=== PATIENT | male | born 1935 | race Caucasian/White ===

== ENCOUNTER 2024-10-08 14:26 | Inpatient (IN) | payer MEDICARE, OTHER ==
[2024-10-08 15:17] LABS: Absolute Neutrophil Ct (ANC) 4.14 x10^3/uL (1.78-5.38); BASOPHIL % 0.6 % (0.2-1.2); Basophil (Absolute #) 0.04 x10^3/uL (0.01-0.08); Eosinophil % 4.3 % (0.8-7.0); Eosinophil (Absolute #) 0.28 x10^3/uL (0.04-0.54); Hematocrit 38.6 % (40.1-51.0); Hemoglobin 12.7 g/dL (13.7-17.5); IMMATURE GRAN # 0.02 x10^3u/L (0.001-0.031); IMMATURE GRAN % 0.3 % (0.001-0.429); Lymphocyte (Absolute #) 1.43 x10^3/uL (1.32-3.57); Lymphocytes % 21.8 % (21.8-53.1); Mean Cell Volume 91.3 fL (79.0-92.2); Mean Corpuscular Hgb Concent. 32.9 g/dL (32.3-36.5); Monocyte (Absolute #) 0.64 x10^3/uL (0.30-0.82); Monocytes % 9.8 % (5.3-12.2); Neutrophil % 63.2 % (34.0-67.9); Platelet Count 168 x10^3/uL (163-337); Red Blood Count 4.23 x10^6/uL (4.63-6.08); Red Cell Distribution Width 14.3 % (11.6-14.4); White Blood Count 6.6 x10^3/uL (4.23-9.07)
[2024-10-08 15:36] LABS: ALBUMIN 3.6 g/dL (3.5-5.0); ANION GAP 11.5 MEQ/L (5-15); BILIRUBIN,TOTAL 0.4 mg/dL (0.2-1.3); Creatinine 1 0.9 mg/dL (0.66-1.25); EST GLOMERULAR FILTRATION RATE 82.2 ML/MIN; Potassium 4.6 mmol/L (3.5-5.1); Total Protein 6.1 g/dL (6.3-8.2)
[2024-10-08 16:13] LABS: Appearance Cloudy (Clear); Bacteria None Seen /HPF (None Seen); Bilirubin Negative (Negative); Blood Negative (Negative); Epithelial Cells None Seen /HPF (None Seen); Glucose, Urine Negative (Negative); Hyaline Casts NONE SEEN /LPF (0-2); Ketones Negative (Negative); Leukocyte Esterase Small (Negative); Nitrite Negative (Negative); Protein,Urine Dip Negative (Negative); RBC 0-2 /HPF (0-5); Specific Gravity 1.015 (1.005-1.030); Urobilinogen 0.2 mg/dL (0.2)
--- NOTE | 2024-10-08 16:25 | ERPHSYRPT ---
- History of Present Illness Time Seen by Provider: 10/08/24 14:32 Historian: patient Exam Limitations: no limitations Patient Subjective Stated Complaint: C/O upper abdominal pain for 12-15 hours Triage Nursing Assessment: Patient ambulated back to ER with his walker. He is alert and oriented. Hard of hearing but hears adequately with his hearing aids. No SOB. Abdomen is soft, non-tender to palpation. Physician History: 88 years old male presented in the ER with complains of abdominal pain with some questionable constipation. Patient reports he is having off-and-on abdominal pain for almost 1 week but for the last 2 days getting worse especially since morning. All over, also reports having loose stool but no regular bowel movement in 1 week. Pain is mild to moderate dull aching to sharp with no significant aggravating or relieving factors. Reports mild nausea but no vomiting. No fever or chills reported. No history of abdominal surgeries, intestinal obstructions. No urinary complaints. No fever or chills reported. Allergies/Adverse Reactions: No Known Drug Allergies Allergy (Verified 10/08/24 14:33) Home Medications: Aspirin [Aspirin EC] 81 mg PO DAILY 08/10/14 [History] Metoprolol Succinate 50 mg [Toprol Xl 50 MG] 50 mg PO DAILY 10/08/24 [History] Tamsulosin HCl [Flomax] 0.4 mg PO DAILY 10/08/24 [History] Hx Tetanus, Diphtheria Vaccination/Date Given: Yes Hx Influenza Vaccination/Date Given: Yes Hx Pneumococcal Vaccination/Date Given: Yes Immunizations Up to Date: Yes Travel Risk - International Travel Have you traveled outside of the country in past 3 weeks: No - Emerging Infectious Disease Are you exhibiting symptoms associated with any current EIDs: Yes Symptoms: Abdominal Pain - Review of Systems Constitutional: No Symptoms Eyes: No Symptoms Ears, Nose, & Throat: No Symptoms Respiratory: No Symptoms Cardiac: No Symptoms Abdominal/Gastrointestinal: Abdominal Pain, Nausea, Diarrhea, Constipation Genitourinary Symptoms: No Symptoms Skin: No Symptoms Neurological: No Symptoms Endocrine: No Symptoms Hematologic/Lymphatic: No Symptoms - Past Medical History Pertinent Past Medical History: Yes Neurological History: No Pertinent History ENT History: No Pertinent History Cardiac History: High Cholesterol, Hypertension Respiratory History: No Pertinent History Endocrine Medical History: Hypothyroidism Musculoskeletal History: No Pertinent History GI Medical History: No Pertinent History History: No Pertinent History Psycho-Social History: No Pertinent History Male Reproductive Disorders: No Pertinent History - Past Surgical History Past Surgical History: Yes Neuro Surgical History: No Pertinent History Cardiac: No Pertinent History Respiratory: No Pertinent History Gastrointestinal: No Pertinent History Genitourinary: No Pertinent History Musculoskeletal: No Pertinent History Male Surgical History: No Pertinent History Other Surgical History: colonoscopy ,EGD - Social History Smoking Status: Never smoker Exposure to second hand smoke: No Drug Use: none - Social Determinants of Health Will the patient participate in the screening: Yes Do you worry about a steady place to live?: No Do you have any problems with any of the following?: No known problems In the past 12 months,have you had to go without utilities?: No Transportation Issues: No Has anyone in your support network made you feel unsafe?: No Have you or anyone in your house had to go w/o enough food: No - Nursing Vital Signs Nursing Vital Signs: Initial Vital Signs Temperature 97.6 F 10/08/24 14:35 Pulse Rate 55 L 10/08/24 14:35 Respiratory Rate 16 10/08/24 14:35 Blood Pressure 165/64 10/08/24 14:35 O2 Sat by Pulse Oximetry 97 10/08/24 14:35 Pain Scale Pain Intensity 3 - Physical Exam General Appearance: no apparent distress, alert Ears, Nose, Throat Exam: normal ENT inspection, pharynx normal Neck Exam: normal inspection, non-tender, supple, full range of motion Respiratory Exam: normal breath sounds, lungs clear Cardiovascular Exam: normal heart sounds, bradycardia Gastrointestinal/Abdomen Exam: soft, tenderness (Mild generalized tenderness with no guarding or rebound), No normal bowel sounds Back Exam: normal inspection Extremity Exam: normal inspection, normal range of motion Neurologic Exam: alert, oriented x 3, cooperative Skin Exam: normal color SpO2 Interpretation: normal SpO2: 98 O2 Delivery: Room Air Ordered Tests: Active Orders 24 hr Category Date Time Status Call Admit Doctor for Orders ON ADMISSION Care 10/08/24 22:32 Active Code Status Order ROUTINE Care 10/08/24 22:32 Active NPO (ED) STAT Care 10/08/24 16:[address] in Observation ROUTINE Care 10/08/24 22:32 Active Telemetry q6h Care 10/08/24 22:32 Active ABDOMEN AND PELVIS W/0 CONTRAS [CT] Stat Exams 10/08/24 14:55 Completed CBC W DIFF Stat Lab 10/08/24 14:13 Completed CMP Stat Lab 10/08/24 14:13 Completed LIPASE Stat Lab 10/08/24 14:13 Completed Lactic Acid Stat Lab 10/08/24 17:08 Completed UA W/RFX UR CULTURE Stat Lab 10/08/24 16:00 Completed Transfer Order Routine Transfer 10/08/24 Completed Medication Summary Generic Name Dose Route Start Last Admin Trade Name Shankar PRN Reason Stop Dose Admin Hydrocodone Bitart/Acetaminophen 1 tab 10/08/24 23:05 Hydrocodone/Apap 5/325 1 Tab Tablet PO 10/13/24 23:04 Q4H PRN PRN PAIN Enoxaparin Sodium 40 mg 10/09/24 10:00 Enoxaparin Sodium 40 Mg/0.4 Ml Syringe SQ 11/08/24 09:59 DAILY MARLY Sodium Chloride 1,000 mls @ 125 mls/hr 10/08/24 22:45 10/08/24 23:15 Sodium Chloride 0.9% 1000 Ml IV 11/07/24 22:44 125 mls/hr .Q8H MARLY Administration Piperacillin Sod/Tazobactam 100 mls @ 200 mls/hr 10/09/24 00:00 Sod 3.375 gm/ Sodium Chloride IV 10/12/24 00:00 Q6HT MARLY Morphine Sulfate 2 mg 10/08/24 23:03 Morphine Sulfate 2 Mg/Ml Inj IV 10/13/24 23:02 Q1H/PRN PRN SEVERE PAIN Morphine Sulfate 4 mg 10/08/24 23:03 Morphine Sulfate 4 Mg/Ml Injection IV 10/13/24 23:02 Q2H PRN PRN SEVERE PAIN Ondansetron HCl 4 mg 10/08/24 23:06 Ondansetron Hcl 4 Mg/2 Ml Vial IV 11/07/24 23:05 Q6H PRN PRN NAUSEA/VOMITING Pantoprazole Sodium 40 mg 10/08/24 23:15 10/08/24 23:19 Pantoprazole 40 Mg Vial IV 11/07/24 23:14 40 mg Q24H MARLY Administration Discontinued Medications Generic Name Dose Route Start Last Admin Trade Name Shankar PRN Reason Stop Dose Admin Atropine Sulfate Confirm 10/08/24 20:11 Atropine Sulfate 1 Mg/1 Ml Vial Administered 10/08/24 20:12 Dose 1 mg .ROUTE .STK-MED ONE Bupivacaine HCl Confirm 10/08/24 17:48 Bupivacaine Hcl 2.5 Mg/Ml 10 Ml Administered 10/08/24 17:49 Dose 20 ml .ROUTE .STK-MED ONE Bupivacaine HCl Confirm 10/08/24 20:16 Bupivacaine Hcl/Pf 150 Mg/30 Ml Vial Administered 10/08/24 20:17 Dose 150 mg .ROUTE .STK-MED ONE Bupivacaine Liposome Confirm 10/08/24 20:16 Bupivacaine Liposome/Pf 133 Mg/10 Ml Administered 10/08/24 20:17 Dose 266 mg IJ .STK-MED ONE Dexmedetomidine/Sodium Chloride Confirm 10/08/24 21:04 Dexmedetomidine In 0.9 % Nacl 80 Mcg/20 Ml Vial Administered 10/08/24 21:05 Dose 80 mcg IV .STK-MED ONE Ephedrine Sulfate Confirm 10/08/24 18:48 Ephedrine Sulfate 50 Mg/Ml Administered 10/08/24 18:49 Dose 50 mg .ROUTE .STK-MED ONE Etomidate Confirm 10/08/24 18:07 Etomidate 20 Mg/10 Ml Amp Administered 10/08/24 18:08 Dose 20 mg IV .STK-MED ONE Fentanyl Citrate Confirm 10/08/24 18:07 Fentanyl Citrate 100 Mcg/2 Ml* Vial Administered 10/08/24 18:08 Dose 100 mcg .ROUTE .STK-MED ONE Fentanyl Citrate Confirm 10/08/24 19:11 Fentanyl Citrate 100 Mcg/2 Ml* Vial Administered 10/08/24 19:12 Dose 100 mcg .ROUTE .STK-MED ONE Sodium Chloride 1,000 mls @ 999 mls/hr 10/08/24 16:37 10/08/24 17:50 Sodium Chloride 0.9% 1000 Ml IV 10/08/24 17:37 Infused .Q1H1M STA Infusion Sodium Chloride Confirm 10/08/24 16:41 Sodium Chloride 0.9% 1000 Ml Administered 10/08/24 16:42 Dose 1,000 mls @ ud .ROUTE .STK-MED ONE Piperacillin Sod/Tazobactam 100 mls @ 200 mls/hr 10/08/24 17:46 10/08/24 17:53 Sod 3.375 gm/ Sodium Chloride IV 10/08/24 18:15 200 ml/hr STAT ONE 200 mls/hr Administration Lactated Ringer's Confirm 10/08/24 17:48 Lactated Ringers Administered 10/08/24 17:49 Dose 1,000 mls @ ud IV .STK-MED ONE Sodium Chloride Confirm 10/08/24 17:50 Sodium Chloride 100ml Mini-Bag Plus Administered 10/08/24 17:51 Dose 100 mls @ ud IV .STK-MED ONE Norepinephrine/Dextrose Confirm 10/08/24 17:56 Norepinephrine 8 Mg/250 Ml-D5w Administered 10/08/24 17:57 Dose 8 mg in 250 mls @ ud IV .STK-MED ONE Lactated Ringer's Confirm 10/08/24 19:14 Lactated Ringers Administered 10/08/24 19:15 Dose 1,000 mls @ ud IV .STK-MED ONE Lidocaine HCl Confirm 10/08/24 18:07 Lidocaine - Mpf 2% 5 Ml Vial Administered 10/08/24 18:08 Dose 5 ml .ROUTE .STK-MED ONE Morphine Sulfate 4 mg 10/08/24 17:15 10/08/24 17:24 Morphine Sulfate 4 Mg/Ml Injection IV 10/08/24 17:16 Not Given STAT ONE Morphine Sulfate Confirm 10/08/24 17:22 Morphine Sulfate 4 Mg/Ml Injection Administered 10/08/24 17:23 Dose 4 mg .ROUTE .STK-MED ONE Ondansetron HCl 4 mg 10/08/24 17:15 10/08/24 17:25 Ondansetron Hcl 4 Mg/2 Ml Vial IV 10/08/24 17:16 Not Given STAT ONE Ondansetron HCl Confirm 10/08/24 17:21 Ondansetron Hcl 4 Mg/2 Ml Vial Administered 10/08/24 17:22 Dose 4 mg .ROUTE .STK-MED ONE Ondansetron HCl Confirm 10/08/24 20:22 Ondansetron Hcl 4 Mg/2 Ml Vial Administered 10/08/24 20:23 Dose 4 mg .ROUTE .STK-MED ONE Piperacillin Sod/Tazobactam Sod Confirm 10/08/24 17:49 Piperacillin/Tazobactam Sodium 3.375 Gm Vial Administered 10/08/24 17:50 Dose 3.375 gm IV .STK-MED ONE Propofol Confirm 10/08/24 18:06 Propofol 200 Mg/20 Ml Vial Administered 10/08/24 18:07 Dose 200 mg IV .STK-MED ONE Rocuronium [facility] Confirm 10/08/24 18:05 Rocuronium [facility] 50 Mg/5 Ml Vial Administered 10/08/24 18:06 Dose 50 mg IV .STK-MED ONE Succinylcholine Chloride Confirm 10/08/24 18:05 Succinylcholine Chloride 200mg/10 Ml Vial Administered 10/08/24 18:06 Dose 100 mg .ROUTE .STK-MED ONE Sugammadex Sodium Confirm 10/08/24 20:05 Sugammadex Sodium 200 Mg/2 Ml Vial Administered 10/08/24 20:06 Dose 200 mg IV .STK-MED ONE Lab/Rad Data: Laboratory Result Diagrams 10/08/24 14:13 10/08/24 14:13 Laboratory Results 10/08/24 10/08/24 10/08/24 Range/Units 17:08 16:00 14:13 WBC (4.23-9.07) x10^3/uL RBC (4.63-6.08) x10^6/uL Hgb (13.7-17.5) g/dL Hct (40.1-51.0) % MCV (79.0-92.2) fL MCH (25.7-32.2) pg MCHC (32.3-36.5) g/dL RDW (11.6-14.4) % Plt Count (163-337) x10^3/uL MPV (9.4-12.4) fL Gran % (34.0-67.9) % Immature Gran % (Auto) (0.001-0.429) % Nucleat RBC Rel Count (0.00-0.2) % Eos # (Auto) (0.04-0.54) x10^3/uL Immature Gran # (Auto) (0.001-0.031) x10^3u/L Absolute Lymphs (auto) (1.32-3.57) x10^3/uL Absolute Monos (auto) (0.30-0.82) x10^3/uL Absolute Nucleated RBC (0.00-0.012) x10^3u/L Lymphocytes % (21.8-53.1) % Monocytes % (5.3-12.2) % Eosinophils % (0.8-7.0) % Basophils % (0.2-1.2) % Absolute Granulocytes (1.78-5.38) x10^3/uL Basophils # (0.01-0.08) x10^3/uL Sodium 139 (135-145) mmol/L Potassium 4.6 (3.5-5.1) mmol/L Chloride 105 (98-107) mmol/L Carbon Dioxide 27 (22-30) mmol/L Anion Gap 11.5 (5-15) MEQ/L BUN 28 H (9-20) mg/dL Creatinine 0.90 (0.66-1.25) mg/dL Estimated GFR 82.2 ML/MIN Glucose 149 H (74-106) mg/dL Lactic Acid 1.0 (0.4-2.0) Calcium 9.0 (8.4-10.2) mg/dL Total Bilirubin 0.40 (0.2-1.3) mg/dL AST 22 (17-59) U/L ALT 12 (0-50) U/L Alkaline Phosphatase 83 (38-126) U/L Serum Total Protein 6.1 L (6.3-8.2) g/dL Albumin 3.6 (3.5-5.0) g/dL Lipase 24 (23-300) U/L Urine Color Yellow (Yellow) Urine Appearance Cloudy A (Clear) Urine pH 8.0 (4.6-8.0) Ur Specific [place] 1.015 (1.005-1.030) Urine Protein Negative (Negative) Urine Glucose (UA) Negative (Negative) mg/dL Urine Ketones Negative (Negative) Urine Blood Negative (Negative) Urine Nitrite Negative (Negative) Urine Bilirubin Negative (Negative) Urine Urobilinogen 0.2 (0.2) mg/dL Ur Leukocyte Esterase Small A (Negative) U Hyaline Cast (Auto) NONE SEEN (0-2) /LPF Urine Microscopic RBC 0-2 (0-5) /HPF Urine Microscopic WBC 3-5 (0-5) /HPF Ur Epithelial Cells None Seen (None Seen) /HPF Urine Bacteria None Seen (None Seen) /HPF Urine Culture Reflexed NO (NO) 10/08/24 Range/Units 14:13 WBC 6.6 (4.23-9.07) x10^3/uL RBC 4.23 L (4.63-6.08) x10^6/uL Hgb 12.7 L (13.7-17.5) g/dL Hct 38.6 L (40.1-51.0) % MCV 91.3 (79.0-92.2) fL MCH 30.0 (25.7-32.2) pg MCHC 32.9 (32.3-36.5) g/dL RDW 14.3 (11.6-14.4) % Plt Count 168 (163-337) x10^3/uL MPV 10.0 (9.4-12.4) fL Gran % 63.2 (34.0-67.9) % Immature Gran % (Auto) 0.3 (0.001-0.429) % Nucleat RBC Rel Count 0.0 (0.00-0.2) % Eos # (Auto) 0.28 (0.04-0.54) x10^3/uL Immature Gran # (Auto) 0.02 (0.001-0.031) x10^3u/L Absolute Lymphs (auto) 1.43 (1.32-3.57) x10^3/uL Absolute Monos (auto) 0.64 (0.30-0.82) x10^3/uL Absolute Nucleated RBC 0.00 (0.00-0.012) x10^3u/L Lymphocytes % 21.8 (21.8-53.1) % Monocytes % 9.8 (5.3-12.2) % Eosinophils % 4.3 (0.8-7.0) % Basophils % 0.6 (0.2-1.2) % Absolute Granulocytes 4.14 (1.78-5.38) x10^3/uL Basophils # 0.04 (0.01-0.08) x10^3/uL Sodium (135-145) mmol/L Potassium (3.5-5.1) mmol/L Chloride (98-107) mmol/L Carbon Dioxide (22-30) mmol/L Anion Gap (5-15) MEQ/L BUN (9-20) mg/dL Creatinine (0.66-1.25) mg/dL Estimated GFR ML/MIN Glucose (74-106) mg/dL Lactic Acid (0.4-2.0) Calcium (8.4-10.2) mg/dL Total Bilirubin (0.2-1.3) mg/dL AST (17-59) U/L ALT (0-50) U/L Alkaline Phosphatase (38-126) U/L Serum Total Protein (6.3-8.2) g/dL Albumin (3.5-5.0) g/dL Lipase (23-300) U/L Urine Color (Yellow) Urine Appearance (Clear) Urine pH (4.6-8.0) Ur Specific [place] (1.005-1.030) Urine Protein (Negative) Urine Glucose (UA) (Negative) mg/dL Urine Ketones (Negative) Urine Blood (Negative) Urine Nitrite (Negative) Urine Bilirubin (Negative) Urine Urobilinogen (0.2) mg/dL Ur Leukocyte Esterase (Negative) U Hyaline Cast (Auto) (0-2) /LPF Urine Microscopic RBC (0-5) /HPF Urine Microscopic WBC (0-5) /HPF Ur Epithelial Cells (None Seen) /HPF Urine Bacteria (None Seen) /HPF Urine Culture Reflexed (NO) - Progress Progress: improved, pain not gone completely, re-examined Progress Note: 10/08/24 16:45 88 years old is evaluated in the ER for abdominal pain with nausea and diarrhea with worsening for the last 12 hours. Patient abdominal exam is soft with mild generalized tenderness, no guarding or rebound tenderness. He is offered pain medication which she initially declined but on reevaluation wants something for pain. He is given fluids. Workup showed normal white count, chemistries fairly unremarkable. CT abdomen pelvis consistent with viscus rupture with tiny foci of free air under diaphragm and dilated loops of small bowel with pneumatosis intestinalis, suggesting vascular etiology but patient abdominal exam is not consistent with that. I have shared the results of workup with patient and family and need for surgical consult with possible emergent surgical intervention which patient and seem understanding. Discussed with Dr. Greco, reviewed history, workup, he is going to review CT imaging, and will call us back. 10/08/24 17:16 Dr. Greco is planning to take patient to the OR. Patient will be admitted to the hospitalist service in consultation with general surgery 10/08/24 17:[address] Oliva, reviewed history, workup, general surgery recommendations and agreed with admission. Complexity of problems addressed: High acuity Complexity of data reviewed/analyzed:Extensive Risk of complication: High risk Discussed with Dr.: Andrews Will see patient in: hospital (full admit) Counseled pt/family regarding: lab results, diagnosis, need for follow-up, rad results Medical Desision Making - Discussion of managment Care discussed with:: specialist (Dr. Greco and Dr. Oliva) Reviewed:: Test results Agreed on:: Treatment plan, decision to admit Will see patient: in hospital - Diagnostic Testing Diagnostic test were ordered, analyzed, and reviewed by me: Yes Radiological Interpretation: Reviewed by me, Teleradiologist Report - Risk of complications The pt has a mod risk of morbidity or mortality based on: Need for prescription drug management The pt has a high risk of morbidity or mortality based on: Need for major surgery in patient with known risk factors, Need for emergency major surgery, Decision regarding hospitilization or escalation of hosp level of care - Departure Departure Disposition: In-patient Admission Clinical Impression: Intestinal perforation Condition: Stable Critical Care Time: Yes Critical Care Time(excluding separately billable procedures): Critical 30-74 mins
--- NOTE | 2024-10-08 16:38 | XRAY ---
CLINICAL HISTORY: Generalized abdominal pain/diarrhea COMPARISON: No prior studies available for comparison. TECHNIQUE: Non-contrast CT of the abdomen and pelvis was performed, with the following protocol: axial images, and reconstructed coronal and sagittal images. One of the following dose reduction techniques was utilized for this exam: Automated exposure control, adjustment of the mA and/or kV according to patient size, and use of iterative reconstruction. FINDINGS: Bowel: Few free foci under the diaphragm and between bowel loops suggested a perforated viscus. Multiple small bowel loops are dilated, yet the transition point can not be identified, and some of them show pneumatosis intestinalis. Partially, a herniated small bowel loop at the right inguinal canal Multiple diverticula along the sigmoid and descending colon vessels: Calcific plaques along the abdominal aorta and its main branches. Swirling of mesenteric vessels noted, could be an element of volvulus, post-contrast CT is needed. Abdomen: Liver: Normal in size, shape, and density. A small focal lesion is seen at he dome measuring about 10 mm. Gallbladder and Biliary System: The gallbladder is normal in size and shape. No wall thickening, pericholecystic fluid, or gallstones were identified. Pancreas: The pancreatic head, body, and tail are visualized and appear normal in size and density. No pancreatic masses or calcifications were noted. Spleen: Normal in size, shape, and density. No splenic lesions or masses were identified. Appendix: Cannot be traced. Kidneys and Adrenal Glands: Both kidneys are normal in size, shape, and position. Cortical thickness is within normal limits. No renal calculi or hydronephrosis. Adrenal glands are unremarkable. Pelvis: Urinary Bladder: Normal in contour and wall thickness. No intraluminal lesions. And partially herniated into the left inguinal canal Prostate: markedly enlarged, showing central calcifications Seminal Vesicles: Normal appearance without abnormal enlargement or mass. Peritoneal and Retroperitoneal Structures: Mild pelviabdominal ascites. Bones spondylotic changes Minimal backward slipage of L5 over SI Minimal forward slipage of L4 over L5 lower chest cuts: minimal pericardial effusion is noted IMPRESSION: 1. A few free foci under the diaphragm and between bowel loops suggested a perforated viscus. 2. Mild pelviabdominal ascites. 3. Multiple small bowel loops are dilated and show pneumatosis intestinalis, suggesting vascular compromise of the bowel. In such an age group, ischemic causes should be ruled out 4. Swirling of mesenteric vessels noted, could be an element of volvulus; post-contrast CT is needed. 5. Multiple diverticula along the sigmoid and descending colon 6. Bilateral inguinal hernia on the right, a partially herniated small bowel loop, and on the left, the urinary bladder 7. Lower chest cuts: minimal pericardial effusion is noted. Electronically Signed by: Lili Cook MD. (10/08/2024 16:33:52 EDT) ADDENDUM: 10/08/2024 16:35:13 EDT [facility] ER was called at [phone] at 04:33 PM EST, and Dr Rosario was informed regarding the presence of Critical Medical Findings in the report. Electronically Signed by: Lili Cook MD. (10/08/2024 16:35:13 EDT)
[2024-10-08] MEDS ORDERED: Sodium Chloride 0.9% 1000 ML 1,000 ML ONE ×2 (16:41→22:37)
[2024-10-08] MEDS: Sodium Chloride 0.9% 1000 ML 1,000 ML IV STA (16:41)
[2024-10-08] MEDS ORDERED: Zofran 4 MG/2 ML VIAL ONE ×2 (17:21→20:22)
[2024-10-08] MEDS ORDERED: MORPHINE SULFATE 4 MG INJ ONE (17:22)
[2024-10-08] MEDS: MORPHINE SULFATE 4 MG INJ IV ONE (17:24)
[2024-10-08] MEDS: Zofran 4 MG/2 ML VIAL IV ONE (17:25)
[2024-10-08] MEDS ORDERED: Sensorcaine 0.25% 10 ML ONE (17:48)
[2024-10-08] MEDS ORDERED: Lactated Ringers 1,000 ML IV ONE ×2 (17:48→19:14)
[2024-10-08] MEDS ORDERED: PIPERACILLIN/TAZOBACTAM IV ONE (17:49)
[2024-10-08] MEDS ORDERED: Sodium Chloride 100ML MINI-BAG PLUS 100 ML IV ONE (17:50)
[2024-10-08] MEDS: PIPERACILLIN/TAZOBACTAM 3.375 GM in Sodium Chloride 100ML MINI-BAG PLUS 100 ML IV ONE (17:53)
[2024-10-08] MEDS ORDERED: NOREPINEPHRINE 8 MG/250 ML-D5W 8 MG/250 ML PLAST..BAG IV ONE (17:56)
[2024-10-08] MEDS ORDERED: Quelicin Fliptop 200 MG/10 ML ONE (18:05)
[2024-10-08] MEDS ORDERED: ROCURONIUM BROMIDE IV ONE (18:05)
[2024-10-08] MEDS ORDERED: propofoL IV ONE (18:06)
[2024-10-08] MEDS ORDERED: Xylocaine-Mpf 2% 5 Ml Vial ONE (18:07)
[2024-10-08] MEDS ORDERED: Amidate 20 MG/10 ML IV ONE (18:07)
[2024-10-08] MEDS ORDERED: SUBLIMAZE 100 MCG/2 ML ONE ×2 (18:07→19:11)
[2024-10-08] MEDS ORDERED: Ephedrine Sulfate 50 MG/ML ONE (18:48)
[2024-10-08] MEDS ORDERED: BRIDION 200MG/2ML IV ONE (20:05)
[2024-10-08] MEDS ORDERED: ATROPINE SULFATE 1MG ONE (20:11)
[2024-10-08] MEDS ORDERED: EXPAREL 133 MG/10 ML VIAL IJ ONE (20:16)
[2024-10-08] MEDS ORDERED: Marcaine Mpf 0.5% Vial 30 Ml ONE (20:16)
[2024-10-08] MEDS ORDERED: DEXMEDETOMIDINE 80 MCG/20ML-NS IV ONE (21:04)
[2024-10-08 21:55] LABS: Appearance Cloudy (Clear); Bacteria None Seen /HPF (None Seen); Bilirubin Negative (Negative); Blood Moderate (Negative); Epithelial Cells None Seen /HPF (None Seen); Glucose, Urine Negative (Negative); Hyaline Casts NONE SEEN /LPF (0-2); Ketones Negative (Negative); Leukocyte Esterase Negative (Negative); Nitrite Negative (Negative); Protein,Urine Dip Negative (Negative); RBC >100 /HPF (0-5); Specific Gravity 1.015 (1.005-1.030); Urobilinogen 0.2 mg/dL (0.2)
--- NOTE | 2024-10-08 22:15 | XRAY ---
CLINICAL HISTORY: CL PLACEMENT COMPARISON: Prior chest X-ray dated 04/07/2013. TECHNIQUE: An X-ray image of the chest is obtained in AP portable projection. FINDINGS: Newly inserted right sided venous line, its tip is adequately placed at the distal third of the SVC. NG tube, its tip crosses the midline, likely within the pylorus. Pulmonary Parenchyma: No evidence of consolidation, collapse, or focal opacities. No pulmonary nodules are identified. Fine bilateral basal atelectatic lines, new on interval. No evidence of pleural effusion or pleural thickening. Heart and Mediastinum: Heart size is borderline. No mediastinal widening or masses. Bulky edgar bilaterally. Bony Thorax: Bony thorax appears intact without fractures or deformities. Soft Tissues: Soft tissues overlying the chest wall are unremarkable. A perihepatic lucency, likely artifact/skin fold. IMPRESSION: 1. No acute cardiopulmonary abnormalities are identified. 2. Fine bilateral basal atelectatic lines, new on interval with mildly bulky edgar. 3. Newly inserted right-sided venous line, its tip is adequately placed at the distal third of the SVC. 4. NG tube, its tip crosses the midline, likely within the pylorus. Electronically Signed by: Lili Cook MD. (10/08/2024 22:10:38 EDT)
[2024-10-08] MEDS ORDERED: NORCO 5/325 MG PO PRN (23:05)
[2024-10-08] MEDS: Sodium Chloride 0.9% 1000 ML 1,000 ML IV SCH (23:15)
[2024-10-08] MEDS: PROTONIX 40 MG IV IV SCH (23:19)
--- NOTE | 2024-10-08 23:28 | PCM.HP ---
History of Present Illness - Chief Complaint Chief Complaint: abdominal pain Date: 10/08/24 History of Present Illness: 88-year-old man with a history of hypertension and BPH who admitted today with bowel perforation. Of note, history is limited as the patient is still lethargic after his surgery. He is able to state his name, and ask some questions about what surgery he was having, but in general is not verbalizing answers to questions, only sometimes giving thumbs up or thumbs down. He also points to his ear and mouth that he has hearing aids, that are not currently present. Per ED report, patient presented with abdominal pain for the last week, worsening for the last 2 days. With severe, sharp, but diffuse. On CT, he was found to have a bowel perforation with concern for ischemic bowel. He was taken to the OR directly from the ED, and I am now seeing him on the floor afterwards. Per report, he was found to have "small bowel diverticulitis" with a perforation and underwent a small bowel resection. He denies any pain currently. - Review of Systems All Other Systems: Unable due to condition Medications & Allergies Home Medications: Home Medication List Aspirin [Aspirin EC] 81 mg PO DAILY 08/10/14 [History Confirmed 10/08/24] Metoprolol Succinate 50 mg [Toprol Xl 50 MG] 50 mg PO DAILY 10/08/24 [History Confirmed 10/08/24] Tamsulosin HCl [Flomax] 0.4 mg PO DAILY 10/08/24 [History Confirmed 10/08/24] Allergies/Adverse Reactions: Allergies Allergy/AdvReac Type Severity Reaction Status Date / Time No Known Drug Allergies Allergy Verified 10/08/24 14:33 - Past Medical History Past Medical History: Yes Neurological History: No Pertinent History ENT History: No Pertinent History Cardiac History: High Cholesterol, Hypertension Respiratory History: No Pertinent History Endocrine Medical History: Hypothyroidism Musculoskelatal History: Arthritis GI Medical History: Diverticulitis History: No Pertinent History Pyscho-Social History: No Pertinent History Male Reproductive Disorders: Prostate Problems - Past Surgical History Past Surgical History: Yes Neuro Surgical History: No Pertinent History Cardiac History: No Pertinent History Respiratory Surgery: No Pertinent History GI Surgical History: Bowel Surgery, Other Genitourinary Surgical Hx: No Pertinent History Musculskeletal Surgical Hx: No Pertinent History Male Surgical History: No Pertinent History Other Surgical History: colonoscopy ,EGD Significant Family History: other (unable to obtain due to mental status) - Social History Smoking Status: Never smoker Exposure to second hand smoke: No Alcohol: None Drug Use: none - Social Determinants of Health Will the patient participate in the screening: Yes Do you worry about a steady place to live?: No Do you have any problems with any of the following?: No known problems In the past 12 months,have you had to go without utilities?: No Have you or anyone in your house had to go without enough: No Transportation Issues: No Has anyone in your support network made you feel unsafe?: No - Physical Exam Vital Signs: Vital Signs - 24 hr Temp Pulse Resp BP BP Pulse Ox 10/08/24 17:47 98 10/08/24 17:03 98.4 F 55 L 16 163/67 98 10/08/24 17:00 163/67 96 10/08/24 16:30 61 168/68 96 10/08/24 16:00 152/71 94 L 10/08/24 15:57 60 98 10/08/24 15:00 154/60 10/08/24 14:36 165/64 98 10/08/24 14:35 97.6 F 55 L 16 165/64 97 Physical exam GENERAL: lying in bed in no acute distress. HEENT: Normocephalic, atraumatic. Moist mucous membranes. NG tube present. EYES: Normal inspection, anateric sclera, extraocular movements intact. NECK: Supple, full range of motion CV: Regular rate and rhythm, no murmurs, no gallops. No JVD or edema. PULM: clear to auscultation bilaterally, no active breathing. On room air. ABD: Nondistended, mildly tender, two JAYNA drains in place MSK: No joint effusions, full range of motion. SKIN: No rashes, normal color. NEURO: Face symmetric, hearing loss, moving extremities well PSYCH: Awake, alert, oriented only to person Results - Labs Lab/Micro Results: Lab Results-Last 24 Hours 10/08/24 10/08/24 10/08/24 Range/Units 14:13 14:13 16:00 WBC 6.6 (4.23-9.07) x10^3/uL RBC 4.23 L (4.63-6.08) x10^6/uL Hgb 12.7 L (13.7-17.5) g/dL Hct 38.6 L (40.1-51.0) % MCV 91.3 (79.0-92.2) fL MCH 30.0 (25.7-32.2) pg MCHC 32.9 (32.3-36.5) g/dL RDW 14.3 (11.6-14.4) % Plt Count 168 (163-337) x10^3/uL MPV 10.0 (9.4-12.4) fL Gran % 63.2 (34.0-67.9) % Immature Gran % (Auto) 0.3 (0.001-0.429) % Nucleat RBC Rel Count 0.0 (0.00-0.2) % Eos # (Auto) 0.28 (0.04-0.54) x10^3/uL Immature Gran # (Auto) 0.02 (0.001-0.031) x10^3u/L Absolute Lymphs (auto) 1.43 (1.32-3.57) x10^3/uL Absolute Monos (auto) 0.64 (0.30-0.82) x10^3/uL Absolute Nucleated RBC 0.00 (0.00-0.012) x10^3u/L Lymphocytes % 21.8 (21.8-53.1) % Monocytes % 9.8 (5.3-12.2) % Eosinophils % 4.3 (0.8-7.0) % Basophils % 0.6 (0.2-1.2) % Absolute Granulocytes 4.14 (1.78-5.38) x10^3/uL Basophils # 0.04 (0.01-0.08) x10^3/uL Sodium 139 (135-145) mmol/L Potassium 4.6 (3.5-5.1) mmol/L Chloride 105 (98-107) mmol/L Carbon Dioxide 27 (22-30) mmol/L Anion Gap 11.5 (5-15) MEQ/L BUN 28 H (9-20) mg/dL Creatinine 0.90 (0.66-1.25) mg/dL Estimated GFR 82.2 ML/MIN Glucose 149 H (74-106) mg/dL Lactic Acid (0.4-2.0) Calcium 9.0 (8.4-10.2) mg/dL Total Bilirubin 0.40 (0.2-1.3) mg/dL AST 22 (17-59) U/L ALT 12 (0-50) U/L Alkaline Phosphatase 83 (38-126) U/L Serum Total Protein 6.1 L (6.3-8.2) g/dL Albumin 3.6 (3.5-5.0) g/dL Lipase 24 (23-300) U/L Urine Color Yellow (Yellow) Urine Appearance Cloudy A (Clear) Urine pH 8.0 (4.6-8.0) Ur Specific [place] 1.015 (1.005-1.030) Urine Protein Negative (Negative) Urine Glucose (UA) Negative (Negative) mg/dL Urine Ketones Negative (Negative) Urine Blood Negative (Negative) Urine Nitrite Negative (Negative) Urine Bilirubin Negative (Negative) Urine Urobilinogen 0.2 (0.2) mg/dL Ur Leukocyte Esterase Small A (Negative) U Hyaline Cast (Auto) NONE SEEN (0-2) /LPF Urine Microscopic RBC 0-2 (0-5) /HPF Urine Microscopic WBC 3-5 (0-5) /HPF Ur Epithelial Cells None Seen (None Seen) /HPF Urine Bacteria None Seen (None Seen) /HPF Urine Culture Reflexed NO (NO) 10/08/24 10/08/24 Range/Units 17:08 18:47 WBC (4.23-9.07) x10^3/uL RBC (4.63-6.08) x10^6/uL Hgb (13.7-17.5) g/dL Hct (40.1-51.0) % MCV (79.0-92.2) fL MCH (25.7-32.2) pg MCHC (32.3-36.5) g/dL RDW (11.6-14.4) % Plt Count (163-337) x10^3/uL MPV (9.4-12.4) fL Gran % (34.0-67.9) % Immature Gran % (Auto) (0.001-0.429) % Nucleat RBC Rel Count (0.00-0.2) % Eos # (Auto) (0.04-0.54) x10^3/uL Immature Gran # (Auto) (0.001-0.031) x10^3u/L Absolute Lymphs (auto) (1.32-3.57) x10^3/uL Absolute Monos (auto) (0.30-0.82) x10^3/uL Absolute Nucleated RBC (0.00-0.012) x10^3u/L Lymphocytes % (21.8-53.1) % Monocytes % (5.3-12.2) % Eosinophils % (0.8-7.0) % Basophils % (0.2-1.2) % Absolute Granulocytes (1.78-5.38) x10^3/uL Basophils # (0.01-0.08) x10^3/uL Sodium (135-145) mmol/L Potassium (3.5-5.1) mmol/L Chloride (98-107) mmol/L Carbon Dioxide (22-30) mmol/L Anion Gap (5-15) MEQ/L BUN (9-20) mg/dL Creatinine (0.66-1.25) mg/dL Estimated GFR ML/MIN Glucose (74-106) mg/dL Lactic Acid 1.0 (0.4-2.0) Calcium (8.4-10.2) mg/dL Total Bilirubin (0.2-1.3) mg/dL AST (17-59) U/L ALT (0-50) U/L Alkaline Phosphatase (38-126) U/L Serum Total Protein (6.3-8.2) g/dL Albumin (3.5-5.0) g/dL Lipase (23-300) U/L Urine Color Yellow (Yellow) Urine Appearance Cloudy A (Clear) Urine pH 8.0 (4.6-8.0) Ur Specific [place] 1.015 (1.005-1.030) Urine Protein Negative (Negative) Urine Glucose (UA) Negative (Negative) mg/dL Urine Ketones Negative (Negative) Urine Blood Moderate A (Negative) Urine Nitrite Negative (Negative) Urine Bilirubin Negative (Negative) Urine Urobilinogen 0.2 (0.2) mg/dL Ur Leukocyte Esterase Negative (Negative) U Hyaline Cast (Auto) NONE SEEN (0-2) /LPF Urine Microscopic RBC >100 A (0-5) /HPF Urine Microscopic WBC 3-5 (0-5) /HPF Ur Epithelial Cells None Seen (None Seen) /HPF Urine Bacteria None Seen (None Seen) /HPF Urine Culture Reflexed (NO) - Radiology Impressions Radiology Exams & Impressions: Radiology Procedures Category Date Time Status ABDOMEN AND PELVIS W/0 CONTRAS [CT] Stat Exams 10/08/24 14:55 Completed CHEST 1 VIEW (PORTABLE) Stat Exams 10/08/24 21:03 Completed Chest x-ray - no infiltrates, effusions, or edema (images personally reviewed) CT abdomen - evidence of bowel perforation with possible ischemic bowel, with dilated loops of small bowel corresponding with pneumatosis intestinalis Assessment/Plan (1) Intestinal perforation Current Visit: Yes Status: Acute Assessment & Plan: 88-year-old man with a history of hypertension and BPH who is here with bowel perforation. ## Bowel perforation - now status post partial small bowel resection. Initial cause appears to be diverticulitis of the small bowel? Pain is currently controlled. - NG tube to low intermittent wall suction - NPO - P.r.n. morphine - Continue Zosyn started in the ED - Start Protonix 40 mg IV daily - Normal saline at 125 mL per hour - p.r.n. Zofran ## hypertension - Blood pressure elevated, but in the setting of acute pain. - Hold home metoprolol as patient has NG tube dissection. Can restart once tolerating p.o. ## BPH - Restart home tamsulosin once tolerating p.o. Code status: Full Prophylaxis: Lovenox 40 daily Diet: NPO Dispo: Place in observation Entirety of encounter took place via live audio/video telemedicine device, with remote physician and patient in hospital, with the assistance of the bedside nurse. Tr Trivedi MD Telemedicine Hospitalist [facility] 10/08/2024 11:30 PM Code(s): K63.1 - PERFORATION OF INTESTINE (NONTRAUMATIC) Telemedicine Encounter - Telemedicine Encounter Telemedicine Encounter: "The entirety of this encounter was performed via Telemedicine" This visit was performed using real-time audio and video connection between my location and thepatients locationwith the assistance of a surrogateat the patients location. Written or verbal consent was obtained from the patient/guardian to perform this visit using[facility] technology. Any patient questions regarding the telemedicine interaction were answered.
[2024-10-09] MEDS ORDERED: PIPERACILLIN/TAZOBACTAM IV ONE ×3 (00:13→17:08)
[2024-10-09] MEDS ORDERED: Sodium Chloride 100ML MINI-BAG PLUS 100 ML IV ONE ×2 (00:14→05:48)
[2024-10-09] MEDS: PIPERACILLIN/TAZOBACTAM 3.375 GM in Sodium Chloride 100ML MINI-BAG PLUS 100 ML IV SCH (00:16)
[2024-10-09] MEDS: MORPHINE SULFATE 4 MG INJ IV PRN (03:57)
[2024-10-09 05:51] LABS: Hematocrit 39.9 % (40.1-51.0); Hemoglobin 12.7 g/dL (13.7-17.5); Mean Cell Volume 92.1 fL (79.0-92.2); Mean Corpuscular Hemoglobin 29.3 pg (25.7-32.2); Mean Corpuscular Hgb Concent. 31.8 g/dL (32.3-36.5); Mean Platelet Volume 10.6 fL (9.4-12.4); Platelet Count 176 x10^3/uL (163-337); Red Blood Count 4.33 x10^6/uL (4.63-6.08); Red Cell Distribution Width 14.4 % (11.6-14.4); White Blood Count 12.1 x10^3/uL (4.23-9.07)
[2024-10-09 06:39] LABS: ANION GAP 12.2 MEQ/L (5-15); Calcium 7.7 mg/dL (8.4-10.2); Creatinine 1 0.79 mg/dL (0.66-1.25); EST GLOMERULAR FILTRATION RATE 85.5 ML/MIN; Potassium 4.4 mmol/L (3.5-5.1)
[2024-10-09] MEDS ORDERED: Narcan 0.4 MG/ML IV PRN (08:30)
[2024-10-09] MEDS: ENOXAPARIN SODIUM SQ SCH (09:44)
--- NOTE | 2024-10-09 10:13 | CONS ---
DATE: 10/08/2024 HISTORY: The patient is an 88-year-old who has had abdominal pain that is worsening over the past week. He is hard of hearing. He has hypertension and some BPH. PAST MEDICAL HISTORY: He has had a history of some hypothyroidism and hypercholesterolemia in the past. PAST SURGICAL HISTORY: He had an endoscopy several years ago, he said. He has not had any prior other abdominal surgery. HOME MEDICATIONS: Aspirin, metoprolol, tamsulosin. Those are the only medications he takes now. ALLERGIES: No known drug allergies. FAMILY HISTORY: Negative for cancer or inflammatory bowel disease according to the patient. SOCIAL HISTORY: No smoking. REVIEW OF SYSTEMS: Twelve systems reviewed. He is hard of hearing. Otherwise, as mentioned above. No current chest pain. He denied any cardiac problems in the past. Otherwise, as noted above. Pain has been worsening mainly upper abdomen going on over the past week, worse today. LABORATORY DATA AND TESTS: White count was 6.6, hemoglobin 12.7. Liver function tests are okay. Lipase is 24. He had nausea and diarrhea over the past week, worse over the past [address] scan abdomen and pelvis done, which radiologist felt free air under the diaphragm, free fluid under the diaphragm, as well as free fluid in the abdomen, dilated small bowel loops. He questioned pneumatosis although the patient does not seem to be having that type of pain and is not hypotensive. Had questionable swelling in the mesentery. Had some small hernias on the right but no incarcerated bowel. The bowel and bladder was pushing down toward the hernia. He has multiple diverticula. He did have a small pericardial effusion. He did have a cardiac echo. Normal left ventricular systolic function about 5 months ago with minimal carotid disease back then. Twelve systems reviewed, pertinent for as noted above and per admission assessment. In addition to his free fluid, free air and fluid in the small bowel, unclear etiology. IMPRESSION: [place] patient would benefit from exploratory laparotomy, possible bowel resection, possible ostomy, possible patching of ulcer if found. He was explained the risks in detail but not limited to bleeding, infection, risk of wound complications, hernia, dehiscence or infection, risk of any bowel resection done or re-anastomosis, risk of an anastomotic leak, fistula formulation or abscess, stenosis or bleeding, possibly requiring other procedures or prolonged bowel rest, risk of major infection and colon issues that might require colon resection and ostomy with risk of ostomy complications and necrosis, retraction, and herniation and stenosis. Risk of ongoing infection or abscess formation possibly requiring percutaneous drainage or other procedures, risk of renal insufficiency, risk of pneumonia, risk of cardiopulmonary event, real risk of mortality given his age. Otherwise he understands that if he has multiple bowel loops, infarcted area of ischemia, it might not be a survivable situation at his age. He understands all of the above, but not limited to, agrees with the planned procedure. He understands the real risk of mortality. The patient is going to be admitted to the hospitalist service. We will proceed with exploratory laparotomy.
--- NOTE | 2024-10-09 10:18 | OP ---
SURGERY DATE/TIME: 10/08/[id number] PREOPERATIVE DIAGNOSIS: Acute abdomen, pneumoperitoneum, question perforated viscus. POSTOPERATIVE DIAGNOSIS: Severe jejunal diverticulosis, diverticulitis, with some pneumatosis and evidence of at least microperforation, some diffuse peritonitis. No visible evidence or peptic ulcer disease or any evidence of any peptic ulcer perforation. PROCEDURE: 1) Exploratory laparotomy, extensive lavage, diffuse peritonitis. 2) Segmental resection of jejunal diverticulitis, diverticular segment, some questions of microperforation with diffuse peritonitis. 3) Primary reanastomosis, jejunum to jejunum. SURGEON: Taurus Greco MD. ANESTHESIA: General. ESTIMATED BLOOD LOSS: Minimal. INDICATIONS: As above. Consent was obtained. The patient had an acute abdomen. He had pneumoperitoneum with diffuse fluid in his abdomen. The radiologist felt he had a pneumoperitoneum, consider perforated viscus. [place] he needed exploratory laparotomy. Risks were explained were in detail, not limited to as outlined per the surgical consult. Consent was obtained. DESCRIPTION OF PROCEDURE AND FINDINGS: He was taken to the operating room. General anesthesia was induced. The abdomen was prepped and draped in the usual sterile fashion. After official time-out, no disagreement in planned procedure. Midline incision to the laparotomy was accomplished. Dissection carried down. On careful inspection, the stomach did not have any evidence of any perforated ulcer as well the proximal duodenum. The liver was smooth. The gallbladder was smooth, unremarkable. The right colon, transverse colon, descending colon, sigmoid colon were all viable. There was [id number] diverticulosis of the sigmoid colon without evidence of any diverticulitis. The patient did, however, have a very long small bowel with a segment of severe diverticulosis of the jejunum with evidence of some fibrinous exudate and signs of at least microperforation with some diffuse thin fluid peritonitis. It was felt this segment, as the patient had a very long small bowel, warranted resection of the segment. Therefore, the most severe diverticulosis segment of the jejunum was excised with the most inflamed jejunal diverticulum. There were a few more proximal small diverticulum that did not look inflamed or infected at this time as well as a few distal to the planned anastomotic site. The patient seemed to have a good 150 cm or so of distal small bowel past the anastomotic site along with his proximal small bowel. It was felt in this particular individual, it was safer resecting this segment than to risk leaving any persistent draining diverticular segment or the most severe inflamed diverticulosis segment. A couple of these appear to have microperforations. There was some pneumatosis seemed to be in the mesentery on these segments. The segment was transected proximally and distally with the Endo GI stapler. Whether this was 60 cm or not is unclear, but again there was at least 150 cm of small bowel remaining at least as he had a very long small bowel that was quite mobile. The mesentery was taken down, divided and ligated with the LigaSure device. [id number] anastomosis was created with posterior row of 3-0 PDS. [id number] staple anastomosis was created followed by the stapling with the GI stapler. It should be noted there was good hemostasis inside the staple line. The end stump was then closed with TA stapler and then oversewn for hemostasis with running 3-0 PDS. Then, 3-0 PDS was used to close the mesenteric defect. The anastomosis was widely patent. Again, there were a few other small bowel diverticula but the most severe segment had been excised in the area that appeared to have the inflammation and would resolve the peritonitis. Copious irrigation and irrigated clear. Drain was left down in the pelvis as well as along the right gutter without direct communication of the anastomosis itself. All counts were correct. Clean instruments and clean closing Reeder was used. Fish visceral protector placed. Some running looped 0 PDS, sequential 0 PDS were used to close the fascia. The Fish was removed prior to closing the end of the fascia. Subcutaneous irrigated out. Good hemostasis was noted. The skin was stapled. Some Iodoform packing placed in between the jonel lines to be gradually advanced out over the next few days. A sterile dressing and abdominal binder. Anesthesia placed TAP blocks. The patient tolerated the procedure well. Findings were discussed with his over the phone as she is not in the building. The patient will be admitted to the hospital for ongoing medical care.
--- NOTE | 2024-10-09 10:29 | PCM.NOTE ---
Date and Time: 10/09/24 1023 Subjective Assessment: 10/09/24 Mr. Gallego is a 88-year-old man with a history of hypertension and BPH. He was admitted on 10/08/24 with bowel perforation. Per ED report, patient presented with abdominal pain for the last week, worsening for the last 2 days prior to admission. With severe, sharp, but diffuse. On CT, he was found to have a bowel perforation with concern for ischemic bowel. He was taken to the OR directly from the ED. Per report, he was found to have "small bowel diverticulitis" with a perforation and underwent a small bowel resection. He denies any pain currently. He has 2 erick drains with a significant amount of sanguineous drainage. He also has an NG in place to LIS. He is POD #2 from surgery today. Narcotic pain meds are controlling his pain well. He denies any further concerns at this time. - Review of Systems Constitutional: No Fever, No Chills Eyes: No Symptoms Ears, Nose, & Throat: No Symptoms Respiratory: No Cough, No Short Of Breath Cardiac: No Chest Pain, No Edema, No Syncope Abdominal/Gastrointestinal: Other (ERICK drain x2, abd binder, NG), No Abdominal Pain, No Nausea, No Vomiting, No Diarrhea Genitourinary Symptoms: No Dysuria Musculoskeletal: No Back Pain, No Neck Pain Skin: No Rash Neurological: No Dizziness, No Focal Weakness, No Sensory Changes Psychological: No Symptoms Endocrine: No Symptoms Hematologic/Lymphatic: No Symptoms Immunological/Allergic: No Symptoms Objective Exam General Appearance: no apparent distress, alert Neurologic Exam: alert, oriented x 3, cooperative, normal mood/affect, nml cerebellar function, sensation nml, No motor deficits Skin Exam: normal color, warm, dry Wound Assessment: Skin/Wound Assessment Wound/Incision Assessment Start: 10/09/24 00:03 Text: Status: Active Freq: Q6H Protocol: Document 10/09/24 02:00 KD (Rec: 10/09/24 02:38 KD [id number]) Wound/Incision Assessment Upper Medial Abdomen Wound Assessment Shift Assessment Wound Type Incision Wound Stage Non Pressure Wound Dressing Status Drainage circled Drainage Amount Moderate General Appearance Draining Comment POD #0, per surgery - 10" incision closed with jonel and vaseline iodoform inbetween covered with opsite dressing, drainage circled in PACU. Abdominal binder on - remains true Left Abdomen Drain Type ERICK drain Drainage Description Sanguineous Right Abdomen Drain Type ERICK drain Drainage Description Sanguineous Wound Photo Photo Taken No Eye Exam: PERRL, EOMI, eyes nml inspection Ears, Nose, Throat Exam: normal ENT inspection, pharynx normal, moist mucous membranes Neck Exam: normal inspection, non-tender, supple, full range of motion Respiratory Exam: normal breath sounds, lungs clear, No respiratory distress Cardiovascular Exam: regular rate/rhythm, normal heart sounds Gastrointestinal/Abdomen Exam: soft, tenderness (ERICK drain x2, abd. binder, NG), No mass Extremity Exam: normal inspection, normal range of motion Back Exam: normal inspection, normal range of motion, No CVA tenderness, No vertebral tenderness Male Genitalia Exam: deferred Rectal Exam: deferred Objective Data Vital Signs: Vital Signs - 24 hr Temp Pulse Resp BP BP Pulse Ox 10/09/24 06:00 73 20 121/52 92 L 10/09/24 05:00 98.4 F 77 21 109/52 95 10/09/24 04:00 75 19 130/60 93 L 10/09/24 03:01 76 20 124/59 95 10/09/24 02:02 74 25 H 136/68 93 L 10/09/24 02:00 25 H 10/09/24 01:00 68 16 139/63 10/09/24 00:14 98 10/09/24 00:01 65 20 138/60 96 10/08/24 23:00 62 24 126/46 97 10/08/24 22:00 96.8 F 63 21 117/57 97 10/08/24 21:50 96.8 F 57 L 10 L 117/57 96 10/08/24 17:03 98.4 F 55 L 16 163/67 98 10/08/24 17:00 163/67 96 10/08/24 16:30 61 168/68 96 10/08/24 16:00 152/71 94 L 10/08/24 15:57 60 98 10/08/24 15:00 154/60 10/08/24 14:36 165/64 98 10/08/24 14:35 97.6 F 55 L 16 165/64 97 Pain Assessment - Last Documented Pain Intensity 9 Pain Scale Used FLACC Intake and Output: Intake & Output 04/10/07/24 10/08/24 10/09/24 11:59 11:59 11:59 11:59 Intake Total 1043 Output Total 775 Balance 268 Weight 74 kg Lab Results: Lab Results-Last 24 Hours 10/08/24 10/08/24 10/08/24 Range/Units 14:13 14:13 16:00 WBC 6.6 (4.23-9.07) x10^3/uL RBC 4.23 L (4.63-6.08) x10^6/uL Hgb 12.7 L (13.7-17.5) g/dL Hct 38.6 L (40.1-51.0) % MCV 91.3 (79.0-92.2) fL MCH 30.0 (25.7-32.2) pg MCHC 32.9 (32.3-36.5) g/dL RDW 14.3 (11.6-14.4) % Plt Count 168 (163-337) x10^3/uL MPV 10.0 (9.4-12.4) fL Gran % 63.2 (34.0-67.9) % Immature Gran % (Auto) 0.3 (0.001-0.429) % Nucleat RBC Rel Count 0.0 (0.00-0.2) % Eos # (Auto) 0.28 (0.04-0.54) x10^3/uL Immature Gran # (Auto) 0.02 (0.001-0.031) x10^3u/L Absolute Lymphs (auto) 1.43 (1.32-3.57) x10^3/uL Absolute Monos (auto) 0.64 (0.30-0.82) x10^3/uL Absolute Nucleated RBC 0.00 (0.00-0.012) x10^3u/L Lymphocytes % 21.8 (21.8-53.1) % Monocytes % 9.8 (5.3-12.2) % Eosinophils % 4.3 (0.8-7.0) % Basophils % 0.6 (0.2-1.2) % Absolute Granulocytes 4.14 (1.78-5.38) x10^3/uL Basophils # 0.04 (0.01-0.08) x10^3/uL Sodium 139 (135-145) mmol/L Potassium 4.6 (3.5-5.1) mmol/L Chloride 105 (98-107) mmol/L Carbon Dioxide 27 (22-30) mmol/L Anion Gap 11.5 (5-15) MEQ/L BUN 28 H (9-20) mg/dL Creatinine 0.90 (0.66-1.25) mg/dL Estimated GFR 82.2 ML/MIN Glucose 149 H (74-106) mg/dL POC Glucometer (74 to 106) mg/dL Lactic Acid (0.4-2.0) Calcium 9.0 (8.4-10.2) mg/dL Total Bilirubin 0.40 (0.2-1.3) mg/dL AST 22 (17-59) U/L ALT 12 (0-50) U/L Alkaline Phosphatase 83 (38-126) U/L Serum Total Protein 6.1 L (6.3-8.2) g/dL Albumin 3.6 (3.5-5.0) g/dL Prealbumin (17.6-36.0) mg/dL Lipase 24 (23-300) U/L Urine Color Yellow (Yellow) Urine Appearance Cloudy A (Clear) Urine pH 8.0 (4.6-8.0) Ur Specific Boyce 1.015 (1.005-1.030) Urine Protein Negative (Negative) Urine Glucose (UA) Negative (Negative) mg/dL Urine Ketones Negative (Negative) Urine Blood Negative (Negative) Urine Nitrite Negative (Negative) Urine Bilirubin Negative (Negative) Urine Urobilinogen 0.2 (0.2) mg/dL Ur Leukocyte Esterase Small A (Negative) U Hyaline Cast (Auto) NONE SEEN (0-2) /LPF Urine Microscopic RBC 0-2 (0-5) /HPF Urine Microscopic WBC 3-5 (0-5) /HPF Ur Epithelial Cells None Seen (None Seen) /HPF Urine Bacteria None Seen (None Seen) /HPF Urine Culture Reflexed NO (NO) 10/08/24 10/08/24 10/09/24 Range/Units 17:08 18:47 05:25 WBC 12.1 H (4.23-9.07) x10^3/uL RBC 4.33 L (4.63-6.08) x10^6/uL Hgb 12.7 L (13.7-17.5) g/dL Hct 39.9 L (40.1-51.0) % MCV 92.1 (79.0-92.2) fL MCH 29.3 (25.7-32.2) pg MCHC 31.8 L (32.3-36.5) g/dL RDW 14.4 (11.6-14.4) % Plt Count 176 (163-337) x10^3/uL MPV 10.6 (9.4-12.4) fL Gran % (34.0-67.9) % Immature Gran % (Auto) (0.001-0.429) % Nucleat RBC Rel Count (0.00-0.2) % Eos # (Auto) (0.04-0.54) x10^3/uL Immature Gran # (Auto) (0.001-0.031) x10^3u/L Absolute Lymphs (auto) (1.32-3.57) x10^3/uL Absolute Monos (auto) (0.30-0.82) x10^3/uL Absolute Nucleated RBC (0.00-0.012) x10^3u/L Lymphocytes % (21.8-53.1) % Monocytes % (5.3-12.2) % Eosinophils % (0.8-7.0) % Basophils % (0.2-1.2) % Absolute Granulocytes (1.78-5.38) x10^3/uL Basophils # (0.01-0.08) x10^3/uL Sodium (135-145) mmol/L Potassium (3.5-5.1) mmol/L Chloride (98-107) mmol/L Carbon Dioxide (22-30) mmol/L Anion Gap (5-15) MEQ/L BUN (9-20) mg/dL Creatinine (0.66-1.25) mg/dL Estimated GFR ML/MIN Glucose (74-106) mg/dL POC Glucometer (74 to 106) mg/dL Lactic Acid 1.0 (0.4-2.0) Calcium (8.4-10.2) mg/dL Total Bilirubin (0.2-1.3) mg/dL AST (17-59) U/L ALT (0-50) U/L Alkaline Phosphatase (38-126) U/L Serum Total Protein (6.3-8.2) g/dL Albumin (3.5-5.0) g/dL Prealbumin (17.6-36.0) mg/dL Lipase (23-300) U/L Urine Color Yellow (Yellow) Urine Appearance Cloudy A (Clear) Urine pH 8.0 (4.6-8.0) Ur Specific Boyce 1.015 (1.005-1.030) Urine Protein Negative (Negative) Urine Glucose (UA) Negative (Negative) mg/dL Urine Ketones Negative (Negative) Urine Blood Moderate A (Negative) Urine Nitrite Negative (Negative) Urine Bilirubin Negative (Negative) Urine Urobilinogen 0.2 (0.2) mg/dL Ur Leukocyte Esterase Negative (Negative) U Hyaline Cast (Auto) NONE SEEN (0-2) /LPF Urine Microscopic RBC >100 A (0-5) /HPF Urine Microscopic WBC 3-5 (0-5) /HPF Ur Epithelial Cells None Seen (None Seen) /HPF Urine Bacteria None Seen (None Seen) /HPF Urine Culture Reflexed (NO) 10/09/24 10/09/24 10/09/24 Range/Units 05:25 05:25 07:50 WBC (4.23-9.07) x10^3/uL RBC (4.63-6.08) x10^6/uL Hgb (13.7-17.5) g/dL Hct (40.1-51.0) % MCV (79.0-92.2) fL MCH (25.7-32.2) pg MCHC (32.3-36.5) g/dL RDW (11.6-14.4) % Plt Count (163-337) x10^3/uL MPV (9.4-12.4) fL Gran % (34.0-67.9) % Immature Gran % (Auto) (0.001-0.429) % Nucleat RBC Rel Count (0.00-0.2) % Eos # (Auto) (0.04-0.54) x10^3/uL Immature Gran # (Auto) (0.001-0.031) x10^3u/L Absolute Lymphs (auto) (1.32-3.57) x10^3/uL Absolute Monos (auto) (0.30-0.82) x10^3/uL Absolute Nucleated RBC (0.00-0.012) x10^3u/L Lymphocytes % (21.8-53.1) % Monocytes % (5.3-12.2) % Eosinophils % (0.8-7.0) % Basophils % (0.2-1.2) % Absolute Granulocytes (1.78-5.38) x10^3/uL Basophils # (0.01-0.08) x10^3/uL Sodium 138 (135-145) mmol/L Potassium 4.4 (3.5-5.1) mmol/L Chloride 109 H (98-107) mmol/L Carbon Dioxide 20 L (22-30) mmol/L Anion Gap 12.2 (5-15) MEQ/L BUN 22 H (9-20) mg/dL Creatinine 0.79 (0.66-1.25) mg/dL Estimated GFR 85.5 ML/MIN Glucose 132 H (74-106) mg/dL POC Glucometer 132 H (74 to 106) mg/dL Lactic Acid (0.4-2.0) Calcium 7.7 L (8.4-10.2) mg/dL Total Bilirubin (0.2-1.3) mg/dL AST (17-59) U/L ALT (0-50) U/L Alkaline Phosphatase (38-126) U/L Serum Total Protein (6.3-8.2) g/dL Albumin (3.5-5.0) g/dL Prealbumin 12.49 L (17.6-36.0) mg/dL Lipase (23-300) U/L Urine Color (Yellow) Urine Appearance (Clear) Urine pH (4.6-8.0) Ur Specific Boyce (1.005-1.030) Urine Protein (Negative) Urine Glucose (UA) (Negative) mg/dL Urine Ketones (Negative) Urine Blood (Negative) Urine Nitrite (Negative) Urine Bilirubin (Negative) Urine Urobilinogen (0.2) mg/dL Ur Leukocyte Esterase (Negative) U Hyaline Cast (Auto) (0-2) /LPF Urine Microscopic RBC (0-5) /HPF Urine Microscopic WBC (0-5) /HPF Ur Epithelial Cells (None Seen) /HPF Urine Bacteria (None Seen) /HPF Urine Culture Reflexed (NO) Radiology Exams: Radiology Procedures Category Date Time Status ABDOMEN AND PELVIS W/0 CONTRAS [CT] Stat Exams 10/08/24 14:55 Completed CHEST 1 VIEW (PORTABLE) Stat Exams 10/08/24 21:03 Completed Medications: Medications Generic Name Dose Route Start Last Admin Trade Name Freq PRN Reason Stop Dose Admin Hydrocodone Bitart/Acetaminophen 1 tab 10/08/24 23:05 Hydrocodone/Apap 5/325 1 Tab Tablet PO 10/13/24 23:04 Q4H PRN PRN PAIN Enoxaparin Sodium 40 mg 10/09/24 10:00 10/09/24 09:44 Enoxaparin Sodium 40 Mg/0.4 Ml Syringe SQ 11/08/24 09:59 40 mg DAILY MARLY Administration Sodium Chloride 1,000 mls @ 125 mls/hr 10/08/24 22:45 10/09/24 09:45 Sodium Chloride 0.9% 1000 Ml IV 11/07/24 22:44 125 mls/hr .Q8H MARLY Administration Piperacillin Sod/Tazobactam 100 mls @ 200 mls/hr 10/09/24 00:00 10/09/24 06:11 Sod 3.375 gm/ Sodium Chloride IV 10/12/24 00:00 200 mls/hr Q6HT MARLY Administration Morphine Sulfate 2 mg 10/08/24 23:03 Morphine Sulfate 2 Mg/Ml Inj IV 10/13/24 23:02 Q1H/PRN PRN SEVERE PAIN Morphine Sulfate 4 mg 10/08/24 23:03 10/09/24 03:57 Morphine Sulfate 4 Mg/Ml Injection IV 10/13/24 23:02 4 mg Q2H PRN PRN Administration SEVERE PAIN Naloxone HCl 0.4 mg 10/09/24 08:30 Naloxone Hcl 0.4 Mg/Ml Ml IV 11/08/24 08:29 PRN PRN RESPIRATORY DEPRESSION Ondansetron HCl 4 mg 10/08/24 23:06 Ondansetron Hcl 4 Mg/2 Ml Vial IV 11/07/24 23:05 Q6H PRN PRN NAUSEA/VOMITING Pantoprazole Sodium 40 mg 10/09/24 22:00 Pantoprazole 40 Mg Vial IV 11/08/24 21:59 Q24H22 MARLY Discontinued Medications Generic Name Dose Route Start Last Admin Trade Name Shankar PRN Reason Stop Dose Admin Atropine Sulfate Confirm 10/08/24 20:11 Atropine Sulfate 1 Mg/1 Ml Vial Administered 10/08/24 20:12 Dose 1 mg .ROUTE .STK-MED ONE Bupivacaine HCl Confirm 10/08/24 17:48 Bupivacaine Hcl 2.5 Mg/Ml 10 Ml Administered 10/08/24 17:49 Dose 20 ml .ROUTE .STK-MED ONE Bupivacaine HCl Confirm 10/08/24 20:16 Bupivacaine Hcl/Pf 150 Mg/30 Ml Vial Administered 10/08/24 20:17 Dose 150 mg .ROUTE .STK-MED ONE Bupivacaine Liposome Confirm 10/08/24 20:16 Bupivacaine Liposome/Pf 133 Mg/10 Ml Administered 10/08/24 20:17 Dose 266 mg IJ .STK-MED ONE Dexmedetomidine/Sodium Chloride Confirm 10/08/24 21:04 Dexmedetomidine In 0.9 % Nacl 80 Mcg/20 Ml Vial Administered 10/08/24 21:05 Dose 80 mcg IV .STK-MED ONE Ephedrine Sulfate Confirm 10/08/24 18:48 Ephedrine Sulfate 50 Mg/Ml Administered 10/08/24 18:49 Dose 50 mg .ROUTE .STK-MED ONE Etomidate Confirm 10/08/24 18:07 Etomidate 20 Mg/10 Ml Amp Administered 10/08/24 18:08 Dose 20 mg IV .STK-MED ONE Fentanyl Citrate Confirm 10/08/24 18:07 Fentanyl Citrate 100 Mcg/2 Ml* Vial Administered 10/08/24 18:08 Dose 100 mcg .ROUTE .STK-MED ONE Fentanyl Citrate Confirm 10/08/24 19:11 Fentanyl Citrate 100 Mcg/2 Ml* Vial Administered 10/08/24 19:12 Dose 100 mcg .ROUTE .STK-MED ONE Sodium Chloride 1,000 mls @ 999 mls/hr 10/08/24 16:37 10/08/24 17:50 Sodium Chloride 0.9% 1000 Ml IV 10/08/24 17:37 Infused .Q1H1M STA Infusion Sodium Chloride Confirm 10/08/24 16:41 Sodium Chloride 0.9% 1000 Ml Administered 10/08/24 16:42 Dose 1,000 mls @ ud .ROUTE .STK-MED ONE Piperacillin Sod/Tazobactam 100 mls @ 200 mls/hr 10/08/24 17:46 10/08/24 17:53 Sod 3.375 gm/ Sodium Chloride IV 10/08/24 18:15 200 ml/hr STAT ONE 200 mls/hr Administration Lactated Ringer's Confirm 10/08/24 17:48 Lactated Ringers Administered 10/08/24 17:49 Dose 1,000 mls @ ud IV .STK-MED ONE Sodium Chloride Confirm 10/08/24 17:50 Sodium Chloride 100ml Mini-Bag Plus Administered 10/08/24 17:51 Dose 100 mls @ ud IV .STK-MED ONE Norepinephrine/Dextrose Confirm 10/08/24 17:56 Norepinephrine 8 Mg/250 Ml-D5w Administered 10/08/24 17:57 Dose 8 mg in 250 mls @ ud IV .STK-MED ONE Lactated Ringer's Confirm 10/08/24 19:14 Lactated Ringers Administered 10/08/24 19:15 Dose 1,000 mls @ ud IV .STK-MED ONE Sodium Chloride Confirm 10/09/24 00:14 Sodium Chloride 100ml Mini-Bag Plus Administered 10/09/24 00:15 Dose 100 mls @ ud IV .STK-MED ONE Sodium Chloride Confirm 10/09/24 05:48 Sodium Chloride 100ml Mini-Bag Plus Administered 10/09/24 05:49 Dose 100 mls @ ud IV .STK-MED ONE Sodium Chloride Confirm 10/08/24 22:37 Sodium Chloride 0.9% 1000 Ml Administered 10/08/24 22:38 Dose 1,000 mls @ ud .ROUTE .STK-MED ONE Lidocaine HCl Confirm 10/08/24 18:07 Lidocaine - Mpf 2% 5 Ml Vial Administered 10/08/24 18:08 Dose 5 ml .ROUTE .STK-MED ONE Morphine Sulfate 4 mg 10/08/24 17:15 10/08/24 17:24 Morphine Sulfate 4 Mg/Ml Injection IV 10/08/24 17:16 Not Given STAT ONE Morphine Sulfate Confirm 10/08/24 17:22 Morphine Sulfate 4 Mg/Ml Injection Administered 10/08/24 17:23 Dose 4 mg .ROUTE .STK-MED ONE Ondansetron HCl 4 mg 10/08/24 17:15 10/08/24 17:25 Ondansetron Hcl 4 Mg/2 Ml Vial IV 10/08/24 17:16 Not Given STAT ONE Ondansetron HCl Confirm 10/08/24 17:21 Ondansetron Hcl 4 Mg/2 Ml Vial Administered 10/08/24 17:22 Dose 4 mg .ROUTE .STK-MED ONE Ondansetron HCl Confirm 10/08/24 20:22 Ondansetron Hcl 4 Mg/2 Ml Vial Administered 10/08/24 20:23 Dose 4 mg .ROUTE .STK-MED ONE Pantoprazole Sodium 40 mg 10/08/24 23:15 10/08/24 23:19 Pantoprazole 40 Mg Vial IV 11/07/24 23:14 40 mg Q24H MARLY Administration Piperacillin Sod/Tazobactam Sod Confirm 10/08/24 17:49 Piperacillin/Tazobactam Sodium 3.375 Gm Vial Administered 10/08/24 17:50 Dose 3.375 gm IV .STK-MED ONE Piperacillin Sod/Tazobactam Sod Confirm 10/09/24 00:13 Piperacillin/Tazobactam Sodium 3.375 Gm Vial Administered 10/09/24 00:14 Dose 3.375 gm IV .STK-MED ONE Piperacillin Sod/Tazobactam Sod Confirm 10/09/24 05:47 Piperacillin/Tazobactam Sodium 3.375 Gm Vial Administered 10/09/24 05:48 Dose 3.375 gm IV .STK-MED ONE Propofol Confirm 10/08/24 18:06 Propofol 200 Mg/20 Ml Vial Administered 10/08/24 18:07 Dose 200 mg IV .STK-MED ONE Rocuronium Rumsey Confirm 10/08/24 18:05 Rocuronium Rumsey 50 Mg/5 Ml Vial Administered 10/08/24 18:06 Dose 50 mg IV .STK-MED ONE Succinylcholine Chloride Confirm 10/08/24 18:05 Succinylcholine Chloride 200mg/10 Ml Vial Administered 10/08/24 18:06 Dose 100 mg .ROUTE .STK-MED ONE Sugammadex Sodium Confirm 10/08/24 20:05 Sugammadex Sodium 200 Mg/2 Ml Vial Administered 10/08/24 20:06 Dose 200 mg IV .STK-MED ONE Assessment/Plan (1) Intestinal perforation Current Visit: Yes Status: Acute Code(s): K63.1 - PERFORATION OF INTESTINE (NONTRAUMATIC) (2) Hypertension Current Visit: Yes Status: Acute Code(s): I10 - ESSENTIAL (PRIMARY) HYPERTENSION (3) BPH (benign prostatic hyperplasia) Current Visit: Yes Status: Acute Assessment & Plan: ## Bowel perforation - Now status post partial small bowel resection. - Initial cause appears to be diverticulitis of the small bowel. - Pain is currently controlled. - NG tube to low intermittent wall suction - NPO - P.r.n. morphine - Continue Zosyn started in the ED - Start Protonix 40 mg IV daily - Normal saline at 125 mL per hour - p.r.n. Zofran ## Hypertension - Blood pressure Controlled, - Elevated at times in the but in the setting of acute pain. - Hold home metoprolol as patient has NG tube - Can restart once tolerating p.o. ## BPH - Restart home tamsulosin once tolerating p.o. Code status: Full Prophylaxis: Lovenox 40 daily Diet: NPO Dispo: 1-2 days- per surgery recs Code(s): N40.0 - BENIGN PROSTATIC HYPERPLASIA WITHOUT LOWER URINRY TRACT SYMP
[2024-10-09] MEDS: MORPHINE SULFATE 2 MG INJ IV PRN (12:56)
[2024-10-09] MEDS: PROTONIX 40 MG IV IV SCH (21:43)
[2024-10-10] MEDS: Zofran 4 MG/2 ML VIAL IV PRN (01:56)
[2024-10-10 04:32] LABS: Hematocrit 34.8 % (40.1-51.0); Hemoglobin 11.4 g/dL (13.7-17.5); Mean Cell Volume 90.9 fL (79.0-92.2); Mean Corpuscular Hemoglobin 29.8 pg (25.7-32.2); Mean Corpuscular Hgb Concent. 32.8 g/dL (32.3-36.5); Mean Platelet Volume 9.9 fL (9.4-12.4); Platelet Count 148 x10^3/uL (163-337); Red Blood Count 3.83 x10^6/uL (4.63-6.08); Red Cell Distribution Width 14.5 % (11.6-14.4); White Blood Count 9.7 x10^3/uL (4.23-9.07)
[2024-10-10 04:48] LABS: Creatinine 1 0.82 mg/dL (0.66-1.25); EST GLOMERULAR FILTRATION RATE 84.5 ML/MIN; Potassium 4.1 mmol/L (3.5-5.1)
--- NOTE | 2024-10-10 08:40 | XRAY ---
Indication: NG tube placement. Comparison: July 31, 2014 KUB demonstrates new NG tube tip coiled in stomach. Also new bilateral JAYNA drains and midline cutaneous jonel. New air distended small/large bowel loops presumed postoperative ileus. Osseous structures intact again with osteopenia and degenerative changes.
--- NOTE | 2024-10-10 09:00 | PCM.NOTE ---
Date and Time: 10/10/24 0854 Subjective Assessment: 10/09/24 Mr. Gallego is a 88-year-old man with a history of hypertension and BPH. He was admitted on 10/08/24 with bowel perforation. Per ED report, patient presented with abdominal pain for the last week, worsening for the last 2 days prior to admission. With severe, sharp, but diffuse. On CT, he was found to have a bowel perforation with concern for ischemic bowel. He was taken to the OR directly from the ED. Per report, he was found to have "small bowel diverticulitis" with a perforation and underwent a small bowel resection. He denies any pain currently. He has 2 erick drains with a significant amount of sanguineous drainage. He also has an NG in place to LIS. He is POD #2 from surgery today. Narcotic pain meds are controlling his pain well. He denies any further concerns at this time. 10/10/24 Pt resting in bed. Per nursing staff he did not sleep last night. He states he has generalized abd. tenderness today. Abd binder in place. NG to LIS and [address] WBC improving 9.7. KUB from yesterday reviewed. Awaiting surgery recs today. He denies any further concerns at this time. Continue IV antibiotics per surgery plan of care. - Review of Systems Constitutional: No Fever, No Chills Eyes: No Symptoms Ears, Nose, & Throat: No Symptoms Respiratory: No Cough, No Short Of Breath Cardiac: No Chest Pain, No Edema, No Syncope Abdominal/Gastrointestinal: Abdominal Pain, No Nausea, No Vomiting, No Diarrhea Genitourinary Symptoms: No Dysuria Musculoskeletal: No Back Pain, No Neck Pain Skin: No Rash Neurological: No Dizziness, No Focal Weakness, No Sensory Changes Psychological: Other (insomnia) Endocrine: No Symptoms Hematologic/Lymphatic: No Symptoms Immunological/Allergic: No Symptoms Objective Exam General Appearance: no apparent distress, alert Neurologic Exam: alert, oriented x 3, cooperative, normal mood/affect, nml cerebellar function, sensation nml, No motor deficits Skin Exam: normal color, warm, dry Wound Assessment: Skin/Wound Assessment Wound/Incision Assessment Start: 10/09/24 00:03 Text: Status: Active Freq: Q6H Protocol: Document 10/10/24 02:00 MM (Rec: 10/10/24 02:05 MM [id number]) Wound/Incision Assessment Upper Medial Abdomen Wound Assessment Shift Assessment Wound Type Incision Wound Stage Non Pressure Wound Dressing Status Drainage circled Drainage Amount Moderate Drainage Description Serosanguineous General Appearance Draining Comment POD #2, per surgery - 10" incision closed with jonel and vaseline iodoform in between covered with opsite dressing, drainage borders marked, Abdominal binder on - remains true Left Abdomen Drain Type ERICK drain Drainage Description Sanguineous Right Abdomen Drain Type ERICK drain Drainage Description Sanguineous Comment increased drainage from left side. Wound Photo Photo Taken No Eye Exam: PERRL, EOMI, eyes nml inspection Ears, Nose, Throat Exam: normal ENT inspection, pharynx normal, moist mucous membranes Neck Exam: normal inspection, non-tender, supple, full range of motion Respiratory Exam: normal breath sounds, lungs clear, No respiratory distress Cardiovascular Exam: regular rate/rhythm, normal heart sounds Gastrointestinal/Abdomen Exam: soft, normal bowel sounds (decreased x4), tenderness, other (NG to LIS, abd. binder, ERICK x2), No mass Extremity Exam: normal inspection, normal range of motion Back Exam: normal inspection, normal range of motion, No CVA tenderness, No vertebral tenderness Male Genitalia Exam: deferred Rectal Exam: deferred Objective Data Vital Signs: Vital Signs - 24 hr Temp Pulse Resp BP Pulse Ox 10/10/24 06:00 20 10/10/24 04:16 98.0 F 103 H 21 136/68 96 10/10/24 04:00 103 H 10/10/24 02:00 17 10/10/24 00:02 94 H 26 H 153/63 96 10/10/24 00:01 94 H 10/09/24 23:08 98.2 F 95 H 22 134/72 96 10/09/24 22:00 15 10/09/24 20:00 97 H 10/09/24 18:06 98.5 F 97 H 21 136/79 94 L 10/09/24 17:38 26 H 10/09/24 16:00 89 10/09/24 15:35 89 23 132/57 10/09/24 14:00 27 H 10/09/24 12:00 78 10/09/24 10:09 78 24 151/68 95 10/09/24 10:00 20 Pain Assessment - Last Documented Pain Intensity 2 Pain Scale Used 0-10 Pain Scale Intake and Output: Intake & Output 10/07/24 10/08/24 10/09/24 10/10/24 11:59 11:59 11:59 11:59 Intake Total 1043 1620 Output Total 979 0420 Balance 68 -530 Weight 74 kg Lab Results: Lab Results-Last 24 Hours 10/09/24 10/10/24 10/10/24 Range/Units 20:19 04:15 04:27 WBC 9.7 H (4.23-9.07) x10^3/uL RBC 3.83 L (4.63-6.08) x10^6/uL Hgb 11.4 L (13.7-17.5) g/dL Hct 34.8 L (40.1-51.0) % MCV 90.9 (79.0-92.2) fL MCH 29.8 (25.7-32.2) pg MCHC 32.8 (32.3-36.5) g/dL RDW 14.5 H (11.6-14.4) % Plt Count 148 L (163-337) x10^3/uL MPV 9.9 (9.4-12.4) fL Sodium (135-145) mmol/L Potassium (3.5-5.1) mmol/L Chloride (98-107) mmol/L Carbon Dioxide (22-30) mmol/L Anion Gap (5-15) MEQ/L BUN (9-20) mg/dL Creatinine (0.66-1.25) mg/dL Estimated GFR ML/MIN Glucose (74-106) mg/dL POC Glucometer 150 H 124 H (74 to 106) mg/dL Calcium (8.4-10.2) mg/dL 10/10/24 10/10/24 Range/Units 04:27 08:19 WBC (4.23-9.07) x10^3/uL RBC (4.63-6.08) x10^6/uL Hgb (13.7-17.5) g/dL Hct (40.1-51.0) % MCV (79.0-92.2) fL MCH (25.7-32.2) pg MCHC (32.3-36.5) g/dL RDW (11.6-14.4) % Plt Count (163-337) x10^3/uL MPV (9.4-12.4) fL Sodium 137 (135-145) mmol/L Potassium 4.1 (3.5-5.1) mmol/L Chloride 108 H (98-107) mmol/L Carbon Dioxide 23 (22-30) mmol/L Anion Gap 11.0 (5-15) MEQ/L BUN 21 H (9-20) mg/dL Creatinine 0.82 (0.66-1.25) mg/dL Estimated GFR 84.5 ML/MIN Glucose 124 H (74-106) mg/dL POC Glucometer 124 H (74 to 106) mg/dL Calcium 8.0 L (8.4-10.2) mg/dL Radiology Exams: Radiology Procedures Category Date Time Status ABDOMEN AND PELVIS W/0 CONTRAS [CT] Stat Exams 10/08/24 14:55 Completed CHEST 1 VIEW (PORTABLE) Stat Exams 10/08/24 21:03 Completed KUB Urgent Exams 10/09/24 19:30 Completed Medications: Medications Generic Name Dose Route Start Last Admin Trade Name Freq PRN Reason Stop Dose Admin Hydrocodone Bitart/Acetaminophen 1 tab 10/08/24 23:05 Hydrocodone/Apap 5/325 1 Tab Tablet PO 10/13/24 23:04 Q4H PRN PRN PAIN Enoxaparin Sodium 40 mg 10/09/24 10:00 10/09/24 09:44 Enoxaparin Sodium 40 Mg/0.4 Ml Syringe SQ 11/08/24 09:59 40 mg DAILY MARLY Administration Sodium Chloride 1,000 mls @ 125 mls/hr 10/08/24 22:45 10/10/24 04:32 Sodium Chloride 0.9% 1000 Ml IV 11/07/24 22:44 Not Given .Q8H MARLY Piperacillin Sod/Tazobactam 100 mls @ 200 mls/hr 10/09/24 00:00 10/10/24 05:38 Sod 3.375 gm/ Sodium Chloride IV 10/12/24 00:00 200 mls/hr Q6HT MARLY Administration Morphine Sulfate 2 mg 10/08/24 23:03 10/10/24 01:55 Morphine Sulfate 2 Mg/Ml Inj IV 10/13/24 23:02 2 mg Q1H/PRN PRN Administration SEVERE PAIN Morphine Sulfate 4 mg 10/08/24 23:03 10/09/24 03:57 Morphine Sulfate 4 Mg/Ml Injection IV 10/13/24 23:02 4 mg Q2H PRN PRN Administration SEVERE PAIN Naloxone HCl 0.4 mg 10/09/24 08:30 Naloxone Hcl 0.4 Mg/Ml Ml IV 11/08/24 08:29 PRN PRN RESPIRATORY DEPRESSION Ondansetron HCl 4 mg 10/08/24 23:06 10/10/24 01:56 Ondansetron Hcl 4 Mg/2 Ml Vial IV 11/07/24 23:05 4 mg Q6H PRN PRN Administration NAUSEA/VOMITING Pantoprazole Sodium 40 mg 10/09/24 22:00 10/09/24 21:43 Pantoprazole 40 Mg Vial IV 11/08/24 21:59 40 mg Q24H22 MARLY Administration Discontinued Medications Generic Name Dose Route Start Last Admin Trade Name Freq PRN Reason Stop Dose Admin Atropine Sulfate Confirm 10/08/24 20:11 Atropine Sulfate 1 Mg/1 Ml Vial Administered 10/08/24 20:12 Dose 1 mg .ROUTE .STK-MED ONE Bupivacaine HCl Confirm 10/08/24 17:48 Bupivacaine Hcl 2.5 Mg/Ml 10 Ml Administered 10/08/24 17:49 Dose 20 ml .ROUTE .STK-MED ONE Bupivacaine HCl Confirm 10/08/24 20:16 Bupivacaine Hcl/Pf 150 Mg/30 Ml Vial Administered 10/08/24 20:17 Dose 150 mg .ROUTE .STK-MED ONE Bupivacaine Liposome Confirm 10/08/24 20:16 Bupivacaine Liposome/Pf 133 Mg/10 Ml Administered 10/08/24 20:17 Dose 266 mg IJ .STK-MED ONE Dexmedetomidine/Sodium Chloride Confirm 10/08/24 21:04 Dexmedetomidine In 0.9 % Nacl 80 Mcg/20 Ml Vial Administered 10/08/24 21:05 Dose 80 mcg IV .STK-MED ONE Ephedrine Sulfate Confirm 10/08/24 18:48 Ephedrine Sulfate 50 Mg/Ml Administered 10/08/24 18:49 Dose 50 mg .ROUTE .STK-MED ONE Etomidate Confirm 10/08/24 18:07 Etomidate 20 Mg/10 Ml Amp Administered 10/08/24 18:08 Dose 20 mg IV .STK-MED ONE Fentanyl Citrate Confirm 10/08/24 18:07 Fentanyl Citrate 100 Mcg/2 Ml* Vial Administered 10/08/24 18:08 Dose 100 mcg .ROUTE .STK-MED ONE Fentanyl Citrate Confirm 10/08/24 19:11 Fentanyl Citrate 100 Mcg/2 Ml* Vial Administered 10/08/24 19:12 Dose 100 mcg .ROUTE .STK-MED ONE Sodium Chloride 1,000 mls @ 999 mls/hr 10/08/24 16:37 10/08/24 17:50 Sodium Chloride 0.9% 1000 Ml IV 10/08/24 17:37 Infused .Q1H1M STA Infusion Sodium Chloride Confirm 10/08/24 16:41 Sodium Chloride 0.9% 1000 Ml Administered 10/08/24 16:42 Dose 1,000 mls @ ud .ROUTE .STK-MED ONE Piperacillin Sod/Tazobactam 100 mls @ 200 mls/hr 10/08/24 17:46 10/08/24 17:53 Sod 3.375 gm/ Sodium Chloride IV 10/08/24 18:15 200 ml/hr STAT ONE 200 mls/hr Administration Lactated Ringer's Confirm 10/08/24 17:48 Lactated Ringers Administered 10/08/24 17:49 Dose 1,000 mls @ ud IV .STK-MED ONE Sodium Chloride Confirm 10/08/24 17:50 Sodium Chloride 100ml Mini-Bag Plus Administered 10/08/24 17:51 Dose 100 mls @ ud IV .STK-MED ONE Norepinephrine/Dextrose Confirm 10/08/24 17:56 Norepinephrine 8 Mg/250 Ml-D5w Administered 10/08/24 17:57 Dose 8 mg in 250 mls @ ud IV .STK-MED ONE Lactated Ringer's Confirm 10/08/24 19:14 Lactated Ringers Administered 10/08/24 19:15 Dose 1,000 mls @ ud IV .STK-MED ONE Sodium Chloride Confirm 10/09/24 00:14 Sodium Chloride 100ml Mini-Bag Plus Administered 10/09/24 00:15 Dose 100 mls @ ud IV .STK-MED ONE Sodium Chloride Confirm 10/09/24 05:48 Sodium Chloride 100ml Mini-Bag Plus Administered 10/09/24 05:49 Dose 100 mls @ ud IV .STK-MED ONE Sodium Chloride Confirm 10/08/24 22:37 Sodium Chloride 0.9% 1000 Ml Administered 10/08/24 22:38 Dose 1,000 mls @ ud .ROUTE .STK-MED ONE Lidocaine HCl Confirm 10/08/24 18:07 Lidocaine - Mpf 2% 5 Ml Vial Administered 10/08/24 18:08 Dose 5 ml .ROUTE .STK-MED ONE Morphine Sulfate 4 mg 10/08/24 17:15 10/08/24 17:24 Morphine Sulfate 4 Mg/Ml Injection IV 10/08/24 17:16 Not Given STAT ONE Morphine Sulfate Confirm 10/08/24 17:22 Morphine Sulfate 4 Mg/Ml Injection Administered 10/08/24 17:23 Dose 4 mg .ROUTE .STK-MED ONE Ondansetron HCl 4 mg 10/08/24 17:15 10/08/24 17:25 Ondansetron Hcl 4 Mg/2 Ml Vial IV 10/08/24 17:16 Not Given STAT ONE Ondansetron HCl Confirm 10/08/24 17:21 Ondansetron Hcl 4 Mg/2 Ml Vial Administered 10/08/24 17:22 Dose 4 mg .ROUTE .STK-MED ONE Ondansetron HCl Confirm 10/08/24 20:22 Ondansetron Hcl 4 Mg/2 Ml Vial Administered 10/08/24 20:23 Dose 4 mg .ROUTE .STK-MED ONE Pantoprazole Sodium 40 mg 10/08/24 23:15 10/08/24 23:19 Pantoprazole 40 Mg Vial IV 11/07/24 23:14 40 mg Q24H MARLY Administration Piperacillin Sod/Tazobactam Sod Confirm 10/08/24 17:49 Piperacillin/Tazobactam Sodium 3.375 Gm Vial Administered 10/08/24 17:50 Dose 3.375 gm IV .STK-MED ONE Piperacillin Sod/Tazobactam Sod Confirm 10/09/24 00:13 Piperacillin/Tazobactam Sodium 3.375 Gm Vial Administered 10/09/24 00:14 Dose 3.375 gm IV .STK-MED ONE Piperacillin Sod/Tazobactam Sod Confirm 10/09/24 05:47 Piperacillin/Tazobactam Sodium 3.375 Gm Vial Administered 10/09/24 05:48 Dose 3.375 gm IV .STK-MED ONE Piperacillin Sod/Tazobactam Sod Confirm 10/09/24 17:08 Piperacillin/Tazobactam Sodium 3.375 Gm Vial Administered 10/09/24 17:09 Dose 3.375 gm IV .STK-MED ONE Propofol Confirm 10/08/24 18:06 Propofol 200 Mg/20 Ml Vial Administered 10/08/24 18:07 Dose 200 mg IV .STK-MED ONE Rocuronium [place] Confirm 10/08/24 18:05 Rocuronium [place] 50 Mg/5 Ml Vial Administered 10/08/24 18:06 Dose 50 mg IV .STK-MED ONE Succinylcholine Chloride Confirm 10/08/24 18:05 Succinylcholine Chloride 200mg/10 Ml Vial Administered 10/08/24 18:06 Dose 100 mg .ROUTE .STK-MED ONE Sugammadex Sodium Confirm 10/08/24 20:05 Sugammadex Sodium 200 Mg/2 Ml Vial Administered 10/08/24 20:06 Dose 200 mg IV .STK-MED ONE Assessment/Plan (1) Intestinal perforation Current Visit: Yes Status: Acute Code(s): K63.1 - PERFORATION OF INTESTINE (NONTRAUMATIC) (2) Hypertension Current Visit: Yes Status: Acute Code(s): I10 - ESSENTIAL (PRIMARY) HYPERTENSION (3) BPH (benign prostatic hyperplasia) Current Visit: Yes Status: Acute Assessment & Plan: ## Bowel perforation - Now status post partial small bowel resection. - Initial cause appears to be diverticulitis of the small bowel. - Pain is currently controlled. - NG tube to low intermittent wall suction - NPO - P.r.n. morphine - Continue Zosyn started in the ED - Start Protonix 40 mg IV daily - Normal saline at 125 mL per hour - p.r.n. Zofran - ERICK drain x2, abd binder - Awaiting surgery recs - CBC, CMP reviewed - WBC improving 9.7 ## Hypertension - Blood pressure Controlled, - Elevated at times in the but in the setting of acute pain. - Hold home metoprolol as patient has NG tube - Can restart once tolerating p.o. ## BPH - Restart home tamsulosin once tolerating p.o. Code status: Full Prophylaxis: Lovenox 40 daily Diet: NPO Dispo: 1-2 days- per surgery recs Code(s): N40.0 - BENIGN PROSTATIC HYPERPLASIA WITHOUT LOWER URINRY TRACT SYMP
[2024-10-11 05:38] LABS: Hematocrit 34.2 % (40.1-51.0); Mean Cell Volume 92.2 fL (79.0-92.2); Mean Corpuscular Hemoglobin 29.6 pg (25.7-32.2); Mean Corpuscular Hgb Concent. 32.2 g/dL (32.3-36.5); Platelet Count 148 x10^3/uL (163-337); Red Blood Count 3.71 x10^6/uL (4.63-6.08); Red Cell Distribution Width 14.4 % (11.6-14.4); White Blood Count 7.4 x10^3/uL (4.23-9.07)
[2024-10-11 05:54] LABS: Creatinine 1 0.83 mg/dL (0.66-1.25); EST GLOMERULAR FILTRATION RATE 84.2 ML/MIN; Potassium 3.8 mmol/L (3.5-5.1)
[2024-10-11] MEDS: Dextrose 5%-Lr IV Solution 1000 ML 1,000 ML IV SCH (06:22)
[2024-10-11] MEDS ORDERED: Glutose 15 GM ORAL GEL PO PRN (08:08)
[2024-10-11] MEDS ORDERED: D50W 50 ml Abboject IV PRN (08:08)
[2024-10-11] MEDS ORDERED: MELATONIN PO PRN (13:23)
--- NOTE | 2024-10-11 13:26 | PCM.NOTE ---
Date and Time: 10/11/24 1320 Subjective Assessment: 10/09/24 Mr. Gallego is a 88-year-old man with a history of hypertension and BPH. He was admitted on 10/08/24 with bowel perforation. Per ED report, patient presented with abdominal pain for the last week, worsening for the last 2 days prior to admission. With severe, sharp, but diffuse. On CT, he was found to have a bowel perforation with concern for ischemic bowel. He was taken to the OR directly from the ED. Per report, he was found to have "small bowel diverticulitis" with a perforation and underwent a small bowel resection. He denies any pain currently. He has 2 erick drains with a significant amount of sanguineous drainage. He also has an NG in place to LIS. He is POD #2 from surgery today. Narcotic pain meds are controlling his pain well. He denies any further concerns at this time. 10/10/24 Pt resting in bed. Per nursing staff he did not sleep last night. He states he has generalized abd. tenderness today. Abd binder in place. NG to LIS and [address] WBC improving 9.7. KUB from yesterday reviewed. Awaiting surgery recs today. He denies any further concerns at this time. Continue IV antibiotics per surgery plan of care. 10/11/24 Pt up and sitting in the chair this AM. He states he is feeling much better. Waiting surgery recs. NG and ERICK drains in place. TEDS ordered for BLLE edema. IVF changed to D5 LR at 100 last night as glucose decreased. Hypoglycemia protocol added as well. Pt continues to be NPO. He denies any further concerns at this time. - Review of Systems Constitutional: No Fever, No Chills Eyes: No Symptoms Ears, Nose, & Throat: No Symptoms Respiratory: No Cough, No Short Of Breath Cardiac: No Chest Pain, No Edema, No Syncope Abdominal/Gastrointestinal: No Abdominal Pain, No Nausea, No Vomiting, No Diarrhea Genitourinary Symptoms: No Dysuria Musculoskeletal: No Back Pain, No Neck Pain Skin: No Rash Neurological: No Dizziness, No Focal Weakness, No Sensory Changes Psychological: No Symptoms Endocrine: No Symptoms Hematologic/Lymphatic: No Symptoms Immunological/Allergic: No Symptoms Objective Exam General Appearance: no apparent distress, alert Neurologic Exam: alert, oriented x 3, cooperative, normal mood/affect, nml cerebellar function, sensation nml, No motor deficits Skin Exam: normal color, warm, dry Wound Assessment: Skin/Wound Assessment Wound/Incision Assessment Start: 10/09/24 00:03 Text: Status: Active Freq: Q6H Protocol: Document 10/11/24 08:00 AR (Rec: 10/11/24 12:53 AR [id number]) Wound/Incision Assessment Upper Medial Abdomen Wound Assessment Shift Assessment Wound Type Incision Wound Stage Non Pressure Wound Dressing Status Drainage circled Drainage Amount Moderate Drainage Description Serosanguineous General Appearance Well Approximated,[place] Intact,Draining Comment shadowing outlined Left Abdomen Drain Type ERICK drain Drainage Description Sanguineous Right Abdomen Drain Type ERICK drain Drainage Description Sanguineous Wound Photo Photo Taken No Eye Exam: PERRL, EOMI, eyes nml inspection Ears, Nose, Throat Exam: normal ENT inspection, pharynx normal, moist mucous membranes Neck Exam: normal inspection, non-tender, supple, full range of motion Respiratory Exam: normal breath sounds, lungs clear, No respiratory distress Cardiovascular Exam: regular rate/rhythm, normal heart sounds, edema (BLLE) Gastrointestinal/Abdomen Exam: soft, No tenderness, No mass Extremity Exam: normal inspection, normal range of motion Back Exam: normal inspection, normal range of motion, No CVA tenderness, No vertebral tenderness Male Genitalia Exam: deferred Rectal Exam: deferred Objective Data Vital Signs: Vital Signs - 24 hr Temp Pulse Resp BP Pulse Ox 10/11/24 12:00 98.9 F 71 22 147/65 96 10/11/24 08:00 99.0 F 86 22 162/72 94 L 10/11/24 06:00 18 10/11/24 04:00 98.7 F 99 H 18 164/67 96 10/11/24 02:00 18 10/11/24 00:00 97.9 F 92 H 18 166/75 94 L 10/10/24 19:39 98.7 F 90 16 144/66 92 L 10/10/24 16:04 99.8 F 97 H 18 156/79 Pain Assessment - Last Documented Pain Intensity 2 Pain Scale Used 0-10 Pain Scale Intake and Output: Intake & Output 10/09/24 10/10/24 10/11/24 10/12/24 11:59 11:59 11:59 11:59 Intake Total 1043 1620 2764 Output Total 768 7922 5799 Balance 68 -530 -136 Weight 74 kg Lab Results: Lab Results-Last 24 Hours 10/10/24 10/11/24 10/11/24 Range/Units 17:13 05:29 05:29 WBC 7.4 (4.23-9.07) x10^3/uL RBC 3.71 L (4.63-6.08) x10^6/uL Hgb 11.0 L (13.7-17.5) g/dL Hct 34.2 L (40.1-51.0) % MCV 92.2 (79.0-92.2) fL MCH 29.6 (25.7-32.2) pg MCHC 32.2 L (32.3-36.5) g/dL RDW 14.4 (11.6-14.4) % Plt Count 148 L (163-337) x10^3/uL MPV 10.0 (9.4-12.4) fL Sodium 139 (135-145) mmol/L Potassium 3.8 (3.5-5.1) mmol/L Chloride 110 H (98-107) mmol/L Carbon Dioxide 20 L (22-30) mmol/L Anion Gap 13.0 (5-15) MEQ/L BUN 16 (9-20) mg/dL Creatinine 0.83 (0.66-1.25) mg/dL Estimated GFR 84.2 ML/MIN Glucose 71 L (74-106) mg/dL POC Glucometer 83 (74 to 106) mg/dL Calcium 8.0 L (8.4-10.2) mg/dL 10/11/24 Range/Units 08:39 WBC (4.23-9.07) x10^3/uL RBC (4.63-6.08) x10^6/uL Hgb (13.7-17.5) g/dL Hct (40.1-51.0) % MCV (79.0-92.2) fL MCH (25.7-32.2) pg MCHC (32.3-36.5) g/dL RDW (11.6-14.4) % Plt Count (163-337) x10^3/uL MPV (9.4-12.4) fL Sodium (135-145) mmol/L Potassium (3.5-5.1) mmol/L Chloride (98-107) mmol/L Carbon Dioxide (22-30) mmol/L Anion Gap (5-15) MEQ/L BUN (9-20) mg/dL Creatinine (0.66-1.25) mg/dL Estimated GFR ML/MIN Glucose (74-106) mg/dL POC Glucometer 114 H (74 to 106) mg/dL Calcium (8.4-10.2) mg/dL Radiology Exams: Radiology Procedures Category Date Time Status KUB Urgent Exams 10/09/24 19:30 Completed Medications: Medications Generic Name Dose Route Start Last Admin Trade Name Freq PRN Reason Stop Dose Admin Hydrocodone Bitart/Acetaminophen 1 tab 10/08/24 23:05 Hydrocodone/Apap 5/325 1 Tab Tablet PO 10/13/24 23:04 Q4H PRN PRN PAIN Dextrose 25 ml 10/11/24 08:08 Dextrose 50%-Water 50 Ml Abboject IV 11/10/24 08:07 PRN PRN HYPOGLYCEMIA Enoxaparin Sodium 40 mg 10/09/24 10:00 10/11/24 10:44 Enoxaparin Sodium 40 Mg/0.4 Ml Syringe SQ 11/08/24 09:59 40 mg DAILY MARLY Administration Glucose 15 gm 10/11/24 08:08 Dextrose 15 Gm Gel PO 11/10/24 08:07 PRN PRN HYPOGLYCEMIA Piperacillin Sod/Tazobactam 100 mls @ 200 mls/hr 10/09/24 00:00 10/11/24 13:13 Sod 3.375 gm/ Sodium Chloride IV 10/13/24 00:00 200 mls/hr Q6HT MARLY Administration Dextrose/Lactated Ringer's 1,000 mls @ 100 mls/hr 10/11/24 06:30 10/11/24 06:22 Dextrose 5%-Lr Iv Solution 1000 Ml IV 11/10/24 06:29 100 mls/hr .Q10H MARLY Administration Morphine Sulfate 2 mg 10/08/24 23:03 10/10/24 01:55 Morphine Sulfate 2 Mg/Ml Inj IV 10/13/24 23:02 2 mg Q1H/PRN PRN Administration SEVERE PAIN Morphine Sulfate 4 mg 10/08/24 23:03 10/09/24 03:57 Morphine Sulfate 4 Mg/Ml Injection IV 10/13/24 23:02 4 mg Q2H PRN PRN Administration SEVERE PAIN Naloxone HCl 0.4 mg 10/09/24 08:30 Naloxone Hcl 0.4 Mg/Ml Ml IV 11/08/24 08:29 PRN PRN RESPIRATORY DEPRESSION Ondansetron HCl 4 mg 10/08/24 23:06 10/10/24 01:56 Ondansetron Hcl 4 Mg/2 Ml Vial IV 11/07/24 23:05 4 mg Q6H PRN PRN Administration NAUSEA/VOMITING Pantoprazole Sodium 40 mg 10/09/24 22:00 10/10/24 21:20 Pantoprazole 40 Mg Vial IV 11/08/24 21:59 40 mg Q24H22 MARLY Administration Discontinued Medications Generic Name Dose Route Start Last Admin Trade Name Freq PRN Reason Stop Dose Admin Atropine Sulfate Confirm 10/08/24 20:11 Atropine Sulfate 1 Mg/1 Ml Vial Administered 10/08/24 20:12 Dose 1 mg .ROUTE .STK-MED ONE Bupivacaine HCl Confirm 10/08/24 17:48 Bupivacaine Hcl 2.5 Mg/Ml 10 Ml Administered 10/08/24 17:49 Dose 20 ml .ROUTE .STK-MED ONE Bupivacaine HCl Confirm 10/08/24 20:16 Bupivacaine Hcl/Pf 150 Mg/30 Ml Vial Administered 10/08/24 20:17 Dose 150 mg .ROUTE .STK-MED ONE Bupivacaine Liposome Confirm 10/08/24 20:16 Bupivacaine Liposome/Pf 133 Mg/10 Ml Administered 10/08/24 20:17 Dose 266 mg IJ .STK-MED ONE Dexmedetomidine/Sodium Chloride Confirm 10/08/24 21:04 Dexmedetomidine In 0.9 % Nacl 80 Mcg/20 Ml Vial Administered 10/08/24 21:05 Dose 80 mcg IV .STK-MED ONE Ephedrine Sulfate Confirm 10/08/24 18:48 Ephedrine Sulfate 50 Mg/Ml Administered 10/08/24 18:49 Dose 50 mg .ROUTE .STK-MED ONE Etomidate Confirm 10/08/24 18:07 Etomidate 20 Mg/10 Ml Amp Administered 10/08/24 18:08 Dose 20 mg IV .STK-MED ONE Fentanyl Citrate Confirm 10/08/24 18:07 Fentanyl Citrate 100 Mcg/2 Ml* Vial Administered 10/08/24 18:08 Dose 100 mcg .ROUTE .STK-MED ONE Fentanyl Citrate Confirm 10/08/24 19:11 Fentanyl Citrate 100 Mcg/2 Ml* Vial Administered 10/08/24 19:12 Dose 100 mcg .ROUTE .STK-MED ONE Sodium Chloride 1,000 mls @ 999 mls/hr 10/08/24 16:37 10/08/24 17:50 Sodium Chloride 0.9% 1000 Ml IV 10/08/24 17:37 Infused .Q1H1M STA Infusion Sodium Chloride Confirm 10/08/24 16:41 Sodium Chloride 0.9% 1000 Ml Administered 10/08/24 16:42 Dose 1,000 mls @ ud .ROUTE .STK-MED ONE Piperacillin Sod/Tazobactam 100 mls @ 200 mls/hr 10/08/24 17:46 10/08/24 17:53 Sod 3.375 gm/ Sodium Chloride IV 10/08/24 18:15 200 ml/hr STAT ONE 200 mls/hr Administration Lactated Ringer's Confirm 10/08/24 17:48 Lactated Ringers Administered 10/08/24 17:49 Dose 1,000 mls @ ud IV .STK-MED ONE Sodium Chloride Confirm 10/08/24 17:50 Sodium Chloride 100ml Mini-Bag Plus Administered 10/08/24 17:51 Dose 100 mls @ ud IV .STK-MED ONE Norepinephrine/Dextrose Confirm 10/08/24 17:56 Norepinephrine 8 Mg/250 Ml-D5w Administered 10/08/24 17:57 Dose 8 mg in 250 mls @ ud IV .STK-MED ONE Lactated Ringer's Confirm 10/08/24 19:14 Lactated Ringers Administered 10/08/24 19:15 Dose 1,000 mls @ ud IV .STK-MED ONE Sodium Chloride 1,000 mls @ 125 mls/hr 10/08/24 22:45 10/10/24 11:45 Sodium Chloride 0.9% 1000 Ml IV 11/07/24 22:44 125 mls/hr .Q8H MARYL Administration Sodium Chloride Confirm 10/09/24 00:14 Sodium Chloride 100ml Mini-Bag Plus Administered 10/09/24 00:15 Dose 100 mls @ ud IV .STK-MED ONE Sodium Chloride Confirm 10/09/24 05:48 Sodium Chloride 100ml Mini-Bag Plus Administered 10/09/24 05:49 Dose 100 mls @ ud IV .STK-MED ONE Sodium Chloride Confirm 10/08/24 22:37 Sodium Chloride 0.9% 1000 Ml Administered 10/08/24 22:38 Dose 1,000 mls @ ud .ROUTE .STK-MED ONE Lidocaine HCl Confirm 10/08/24 18:07 Lidocaine - Mpf 2% 5 Ml Vial Administered 10/08/24 18:08 Dose 5 ml .ROUTE .STK-MED ONE Morphine Sulfate 4 mg 10/08/24 17:15 10/08/24 17:24 Morphine Sulfate 4 Mg/Ml Injection IV 10/08/24 17:16 Not Given STAT ONE Morphine Sulfate Confirm 10/08/24 17:22 Morphine Sulfate 4 Mg/Ml Injection Administered 10/08/24 17:23 Dose 4 mg .ROUTE .STK-MED ONE Ondansetron HCl 4 mg 10/08/24 17:15 10/08/24 17:25 Ondansetron Hcl 4 Mg/2 Ml Vial IV 10/08/24 17:16 Not Given STAT ONE Ondansetron HCl Confirm 10/08/24 17:21 Ondansetron Hcl 4 Mg/2 Ml Vial Administered 10/08/24 17:22 Dose 4 mg .ROUTE .STK-MED ONE Ondansetron HCl Confirm 10/08/24 20:22 Ondansetron Hcl 4 Mg/2 Ml Vial Administered 10/08/24 20:23 Dose 4 mg .ROUTE .STK-MED ONE Pantoprazole Sodium 40 mg 10/08/24 23:15 10/08/24 23:19 Pantoprazole 40 Mg Vial IV 11/07/24 23:14 40 mg Q24H MARLY Administration Piperacillin Sod/Tazobactam Sod Confirm 10/08/24 17:49 Piperacillin/Tazobactam Sodium 3.375 Gm Vial Administered 10/08/24 17:50 Dose 3.375 gm IV .STK-MED ONE Piperacillin Sod/Tazobactam Sod Confirm 10/09/24 00:13 Piperacillin/Tazobactam Sodium 3.375 Gm Vial Administered 10/09/24 00:14 Dose 3.375 gm IV .STK-MED ONE Piperacillin Sod/Tazobactam Sod Confirm 10/09/24 05:47 Piperacillin/Tazobactam Sodium 3.375 Gm Vial Administered 10/09/24 05:48 Dose 3.375 gm IV .STK-MED ONE Piperacillin Sod/Tazobactam Sod Confirm 10/09/24 17:08 Piperacillin/Tazobactam Sodium 3.375 Gm Vial Administered 10/09/24 17:09 Dose 3.375 gm IV .STK-MED ONE Propofol Confirm 10/08/24 18:06 Propofol 200 Mg/20 Ml Vial Administered 10/08/24 18:07 Dose 200 mg IV .STK-MED ONE Rocuronium [place] Confirm 10/08/24 18:05 Rocuronium [place] 50 Mg/5 Ml Vial Administered 10/08/24 18:06 Dose 50 mg IV .STK-MED ONE Succinylcholine Chloride Confirm 10/08/24 18:05 Succinylcholine Chloride 200mg/10 Ml Vial Administered 10/08/24 18:06 Dose 100 mg .ROUTE .STK-MED ONE Sugammadex Sodium Confirm 10/08/24 20:05 Sugammadex Sodium 200 Mg/2 Ml Vial Administered 10/08/24 20:06 Dose 200 mg IV .STK-MED ONE Assessment/Plan (1) Intestinal perforation Current Visit: Yes Status: Acute Code(s): K63.1 - PERFORATION OF INTESTINE (NONTRAUMATIC) (2) Hypertension Current Visit: Yes Status: Acute Code(s): I10 - ESSENTIAL (PRIMARY) HYPERTENSION (3) BPH (benign prostatic hyperplasia) Current Visit: Yes Status: Acute Assessment & Plan: ## Bowel perforation - Now status post partial small bowel resection. - Initial cause appears to be diverticulitis of the small bowel. - Pain is currently controlled. - NG tube to low intermittent wall suction - NPO - P.r.n. morphine - Continue Zosyn started in the ED - Start Protonix 40 mg IV daily - Normal saline at 125 mL per hour - p.r.n. Zofran - ERICK drain x2, abd binder - Awaiting surgery recs - CBC, CMP reviewed - WBC improving 9.7 - Radiology results reviewed 10/11 - Leukocytosis resolved - CBC, CMP reviewed - awaiting surgery recs ## Hypertension - Blood pressure Controlled, - Elevated at times in the but in the setting of acute pain. - Hold home metoprolol as patient has NG tube - Can restart once tolerating p.o. ## BPH - Restart home tamsulosin once tolerating p.o. Code(s): N40.0 - BENIGN PROSTATIC HYPERPLASIA WITHOUT LOWER URINRY TRACT SYMP (4) Hypoglycemia Current Visit: Yes Status: Acute Assessment & Plan: - D5 LR @ 100ml/hr started last night - Hypoglycemia protocol started - Accuchecks Q6 Code(s): E16.2 - HYPOGLYCEMIA, UNSPECIFIED (5) Insomnia Current Visit: Yes Status: Acute Assessment & Plan: - Melatonin PRN Code(s): G47.00 - INSOMNIA, UNSPECIFIED (6) Edema of both lower legs Current Visit: Yes Status: Acute Assessment & Plan: - TEDS Code status: Full Prophylaxis: Lovenox 40 daily Diet: NPO Dispo: per surgery recs Code(s): R60.0 - LOCALIZED EDEMA
[2024-10-12 05:33] LABS: Hematocrit 33.1 % (40.1-51.0); Hemoglobin 10.9 g/dL (13.7-17.5); Mean Cell Volume 90.4 fL (79.0-92.2); Mean Corpuscular Hemoglobin 29.8 pg (25.7-32.2); Mean Corpuscular Hgb Concent. 32.9 g/dL (32.3-36.5); Mean Platelet Volume 10.2 fL (9.4-12.4); Platelet Count 158 x10^3/uL (163-337); Red Blood Count 3.66 x10^6/uL (4.63-6.08); Red Cell Distribution Width 14.4 % (11.6-14.4); White Blood Count 6.2 x10^3/uL (4.23-9.07)
[2024-10-12 06:48] LABS: ALBUMIN 2.5 g/dL (3.5-5.0); ANION GAP 8.2 MEQ/L (5-15); BILIRUBIN,TOTAL 0.7 mg/dL (0.2-1.3); Calcium 7.9 mg/dL (8.4-10.2); Creatinine 1 0.76 mg/dL (0.66-1.25); EST GLOMERULAR FILTRATION RATE 86.5 ML/MIN; Potassium 3.6 mmol/L (3.5-5.1); Total Protein 4.8 g/dL (6.3-8.2)
--- NOTE | 2024-10-12 11:30 | PCM.NOTE ---
Date and Time: 10/12/24 1122 Subjective Assessment: 10/09/24 Mr. Gallego is a 88-year-old man with a history of hypertension and BPH. He was admitted on 10/08/24 with bowel perforation. Per ED report, patient presented with abdominal pain for the last week, worsening for the last 2 days prior to admission. With severe, sharp, but diffuse. On CT, he was found to have a bowel perforation with concern for ischemic bowel. He was taken to the OR directly from the ED. Per report, he was found to have "small bowel diverticulitis" with a perforation and underwent a small bowel resection. He denies any pain currently. He has 2 erick drains with a significant amount of sanguineous drainage. He also has an NG in place to LIS. He is POD #2 from surgery today. Narcotic pain meds are controlling his pain well. He denies any further concerns at this time. 10/10/24 Pt resting in bed. Per nursing staff he did not sleep last night. He states he has generalized abd. tenderness today. Abd binder in place. NG to LIS and [address] WBC improving 9.7. KUB from yesterday reviewed. Awaiting surgery recs today. He denies any further concerns at this time. Continue IV antibiotics per surgery plan of care. 10/11/24 Pt up and sitting in the chair this AM. He states he is feeling much better. Waiting surgery recs. NG and ERICK drains in place. TEDS ordered for BLLE edema. IVF changed to D5 LR at 100 last night as glucose decreased. Hypoglycemia protocol added as well. Pt continues to be NPO. He denies any further concerns at this time. 10/12/24 Pt resting in bed. He states he feels much better today. NG removed last night and clear liquid diet started this AM. ERICK drains x2 in place. Aviating surgery recs. Labs overall improved. He denies any further concerns at this time. - Review of Systems Constitutional: No Fever, No Chills Eyes: No Symptoms Ears, Nose, & Throat: No Symptoms Respiratory: No Cough, No Short Of Breath Cardiac: No Chest Pain, No Edema, No Syncope Abdominal/Gastrointestinal: Other (ERICK drains x2 and abd binder), No Abdominal Pain, No Nausea, No Vomiting, No Diarrhea Genitourinary Symptoms: No Dysuria Musculoskeletal: No Back Pain, No Neck Pain Skin: No Rash Neurological: No Dizziness, No Focal Weakness, No Sensory Changes Psychological: No Symptoms Endocrine: No Symptoms Hematologic/Lymphatic: No Symptoms Immunological/Allergic: No Symptoms Objective Exam General Appearance: no apparent distress, alert Neurologic Exam: alert, oriented x 3, cooperative, normal mood/affect, nml cerebellar function, sensation nml, No motor deficits Skin Exam: normal color, warm, dry Wound Assessment: Skin/Wound Assessment Wound/Incision Assessment Start: 10/09/24 00:03 Text: Status: Active Freq: Q6H Protocol: Document 10/12/24 08:00 [facility] (Rec: 10/12/24 08:32 [facility] [id number]) Wound/Incision Assessment Upper Medial Abdomen Wound Assessment Shift Assessment Wound Type Incision Wound Stage Non Pressure Wound Dressing Status Dry & Intact Drainage Amount Minimal Drainage Description Serosanguineous General Appearance Well Approximated,Paula Intact,Draining Left Abdomen Drain Type ERICK drain Drainage Description Serosanguineous Odor None/Absent Right Abdomen Drain Type ERICK drain Drainage Description Serosanguineous Odor None/Absent Wound Photo Photo Taken No Eye Exam: PERRL, EOMI, eyes nml inspection Ears, Nose, Throat Exam: normal ENT inspection, pharynx normal, moist mucous membranes Neck Exam: normal inspection, non-tender, supple, full range of motion Respiratory Exam: normal breath sounds, lungs clear, No respiratory distress Cardiovascular Exam: regular rate/rhythm, normal heart sounds Gastrointestinal/Abdomen Exam: soft, other (ERICK drains x2 and abd binder), No tenderness, No mass Extremity Exam: normal inspection, normal range of motion Back Exam: normal inspection, normal range of motion, No CVA tenderness, No vertebral tenderness Male Genitalia Exam: deferred Rectal Exam: deferred Objective Data Vital Signs: Vital Signs - 24 hr Temp Pulse Resp BP Pulse Ox 10/12/24 07:46 99.2 F 77 17 141/65 94 L 10/12/24 06:00 19 10/12/24 04:00 97.5 F 78 19 126/67 95 10/12/24 02:00 18 10/12/24 00:00 98.3 F 72 18 141/68 95 10/11/24 20:00 98.5 F 83 21 162/72 95 10/11/24 16:00 98.7 F 91 H 20 167/74 94 L 10/11/24 12:00 98.9 F 71 22 147/65 96 Pain Assessment - Last Documented Pain Intensity 0 Pain Scale Used 0-10 Pain Scale Intake and Output: Intake & Output 10/09/24 10/10/24 10/11/24 10/12/24 11:59 11:59 11:59 11:59 Intake Total 1043 1620 2764 2960 Output Total 975 2150 2900 1617 Balance 68 -530 -136 1343 Weight 74 kg 74 kg Lab Results: Lab Results-Last 24 Hours 10/11/24 10/11/24 10/12/24 Range/Units 16:44 22:26 05:12 WBC 6.2 (4.23-9.07) x10^3/uL RBC 3.66 L (4.63-6.08) x10^6/uL Hgb 10.9 L (13.7-17.5) g/dL Hct 33.1 L (40.1-51.0) % MCV 90.4 (79.0-92.2) fL MCH 29.8 (25.7-32.2) pg MCHC 32.9 (32.3-36.5) g/dL RDW 14.4 (11.6-14.4) % Plt Count 158 L (163-337) x10^3/uL MPV 10.2 (9.4-12.4) fL Sodium (135-145) mmol/L Potassium (3.5-5.1) mmol/L Chloride (98-107) mmol/L Carbon Dioxide (22-30) mmol/L Anion Gap (5-15) MEQ/L BUN (9-20) mg/dL Creatinine (0.66-1.25) mg/dL Estimated GFR ML/MIN Glucose (74-106) mg/dL POC Glucometer 102 154 H (74 to 106) mg/dL Calcium (8.4-10.2) mg/dL Total Bilirubin (0.2-1.3) mg/dL AST (17-59) U/L ALT (0-50) U/L Alkaline Phosphatase (38-126) U/L Serum Total Protein (6.3-8.2) g/dL Albumin (3.5-5.0) g/dL 10/12/24 10/12/24 10/12/24 Range/Units 05:12 07:29 10:37 WBC (4.23-9.07) x10^3/uL RBC (4.63-6.08) x10^6/uL Hgb (13.7-17.5) g/dL Hct (40.1-51.0) % MCV (79.0-92.2) fL MCH (25.7-32.2) pg MCHC (32.3-36.5) g/dL RDW (11.6-14.4) % Plt Count (163-337) x10^3/uL MPV (9.4-12.4) fL Sodium 139 (135-145) mmol/L Potassium 3.6 (3.5-5.1) mmol/L Chloride 110 H (98-107) mmol/L Carbon Dioxide 25 (22-30) mmol/L Anion Gap 8.2 (5-15) MEQ/L BUN 11 (9-20) mg/dL Creatinine 0.76 (0.66-1.25) mg/dL Estimated GFR 86.5 ML/MIN Glucose 171 H (74-106) mg/dL POC Glucometer 156 H 158 H (74 to 106) mg/dL Calcium 7.9 L (8.4-10.2) mg/dL Total Bilirubin 0.70 (0.2-1.3) mg/dL AST 29 (17-59) U/L ALT 15 (0-50) U/L Alkaline Phosphatase 52 (38-126) U/L Serum Total Protein 4.8 L (6.3-8.2) g/dL Albumin 2.5 L (3.5-5.0) g/dL Medications: Medications Generic Name Dose Route Start Last Admin Trade Name Freq PRN Reason Stop Dose Admin Hydrocodone Bitart/Acetaminophen 1 tab 10/08/24 23:05 Hydrocodone/Apap 5/325 1 Tab Tablet PO 10/13/24 23:04 Q4H PRN PRN PAIN Dextrose 25 ml 10/11/24 08:08 Dextrose 50%-Water 50 Ml Abboject IV 11/10/24 08:07 PRN PRN HYPOGLYCEMIA Enoxaparin Sodium 40 mg 10/09/24 10:00 10/12/24 11:01 Enoxaparin Sodium 40 Mg/0.4 Ml Syringe SQ 11/08/24 09:59 40 mg DAILY MARLY Administration Glucose 15 gm 10/11/24 08:08 Dextrose 15 Gm Gel PO 11/10/24 08:07 PRN PRN HYPOGLYCEMIA Piperacillin Sod/Tazobactam 100 mls @ 200 mls/hr 10/09/24 00:00 10/12/24 05:12 Sod 3.375 gm/ Sodium Chloride IV 10/13/24 00:00 200 mls/hr Q6HT MARLY Administration Dextrose/Lactated Ringer's 1,000 mls @ 100 mls/hr 10/11/24 06:30 10/12/24 03:22 Dextrose 5%-Lr Iv Solution 1000 Ml IV 11/10/24 06:29 100 mls/hr .Q10H MARLY Administration Melatonin 3 mg 10/11/24 13:23 Melatonin 3 Mg Tablet PO 11/10/24 13:22 HS PRN PRN INSOMNIA Morphine Sulfate 2 mg 10/08/24 23:03 10/10/24 01:55 Morphine Sulfate 2 Mg/Ml Inj IV 10/13/24 23:02 2 mg Q1H/PRN PRN Administration SEVERE PAIN Morphine Sulfate 4 mg 10/08/24 23:03 10/12/24 05:21 Morphine Sulfate 4 Mg/Ml Injection IV 10/13/24 23:02 4 mg Q2H PRN PRN Administration SEVERE PAIN Naloxone HCl 0.4 mg 10/09/24 08:30 Naloxone Hcl 0.4 Mg/Ml Ml IV 11/08/24 08:29 PRN PRN RESPIRATORY DEPRESSION Ondansetron HCl 4 mg 10/08/24 23:06 10/10/24 01:56 Ondansetron Hcl 4 Mg/2 Ml Vial IV 11/07/24 23:05 4 mg Q6H PRN PRN Administration NAUSEA/VOMITING Pantoprazole Sodium 40 mg 10/09/24 22:00 10/11/24 21:49 Pantoprazole 40 Mg Vial IV 11/08/24 21:59 40 mg Q24H22 MARLY Administration Discontinued Medications Generic Name Dose Route Start Last Admin Trade Name Freq PRN Reason Stop Dose Admin Atropine Sulfate Confirm 10/08/24 20:11 Atropine Sulfate 1 Mg/1 Ml Vial Administered 10/08/24 20:12 Dose 1 mg .ROUTE .STK-MED ONE Bupivacaine HCl Confirm 10/08/24 17:48 Bupivacaine Hcl 2.5 Mg/Ml 10 Ml Administered 10/08/24 17:49 Dose 20 ml .ROUTE .STK-MED ONE Bupivacaine HCl Confirm 10/08/24 20:16 Bupivacaine Hcl/Pf 150 Mg/30 Ml Vial Administered 10/08/24 20:17 Dose 150 mg .ROUTE .STK-MED ONE Bupivacaine Liposome Confirm 10/08/24 20:16 Bupivacaine Liposome/Pf 133 Mg/10 Ml Administered 10/08/24 20:17 Dose 266 mg IJ .STK-MED ONE Dexmedetomidine/Sodium Chloride Confirm 10/08/24 21:04 Dexmedetomidine In 0.9 % Nacl 80 Mcg/20 Ml Vial Administered 10/08/24 21:05 Dose 80 mcg IV .STK-MED ONE Ephedrine Sulfate Confirm 10/08/24 18:48 Ephedrine Sulfate 50 Mg/Ml Administered 10/08/24 18:49 Dose 50 mg .ROUTE .STK-MED ONE Etomidate Confirm 10/08/24 18:07 Etomidate 20 Mg/10 Ml Amp Administered 10/08/24 18:08 Dose 20 mg IV .STK-MED ONE Fentanyl Citrate Confirm 10/08/24 18:07 Fentanyl Citrate 100 Mcg/2 Ml* Vial Administered 10/08/24 18:08 Dose 100 mcg .ROUTE .STK-MED ONE Fentanyl Citrate Confirm 10/08/24 19:11 Fentanyl Citrate 100 Mcg/2 Ml* Vial Administered 10/08/24 19:12 Dose 100 mcg .ROUTE .STK-MED ONE Sodium Chloride 1,000 mls @ 999 mls/hr 10/08/24 16:37 10/08/24 17:50 Sodium Chloride 0.9% 1000 Ml IV 10/08/24 17:37 Infused .Q1H1M STA Infusion Sodium Chloride Confirm 10/08/24 16:41 Sodium Chloride 0.9% 1000 Ml Administered 10/08/24 16:42 Dose 1,000 mls @ ud .ROUTE .STK-MED ONE Piperacillin Sod/Tazobactam 100 mls @ 200 mls/hr 10/08/24 17:46 10/08/24 17:53 Sod 3.375 gm/ Sodium Chloride IV 10/08/24 18:15 200 ml/hr STAT ONE 200 mls/hr Administration Lactated Ringer's Confirm 10/08/24 17:48 Lactated Ringers Administered 10/08/24 17:49 Dose 1,000 mls @ ud IV .STK-MED ONE Sodium Chloride Confirm 10/08/24 17:50 Sodium Chloride 100ml Mini-Bag Plus Administered 10/08/24 17:51 Dose 100 mls @ ud IV .STK-MED ONE Norepinephrine/Dextrose Confirm 10/08/24 17:56 Norepinephrine 8 Mg/250 Ml-D5w Administered 10/08/24 17:57 Dose 8 mg in 250 mls @ ud IV .STK-MED ONE Lactated Ringer's Confirm 10/08/24 19:14 Lactated Ringers Administered 10/08/24 19:15 Dose 1,000 mls @ ud IV .STK-MED ONE Sodium Chloride 1,000 mls @ 125 mls/hr 10/08/24 22:45 10/10/24 11:45 Sodium Chloride 0.9% 1000 Ml IV 11/07/24 22:44 125 mls/hr .Q8H MALRY Administration Sodium Chloride Confirm 10/09/24 00:14 Sodium Chloride 100ml Mini-Bag Plus Administered 10/09/24 00:15 Dose 100 mls @ ud IV .STK-MED ONE Sodium Chloride Confirm 10/09/24 05:48 Sodium Chloride 100ml Mini-Bag Plus Administered 10/09/24 05:49 Dose 100 mls @ ud IV .STK-MED ONE Sodium Chloride Confirm 10/08/24 22:37 Sodium Chloride 0.9% 1000 Ml Administered 10/08/24 22:38 Dose 1,000 mls @ ud .ROUTE .STK-MED ONE Lidocaine HCl Confirm 10/08/24 18:07 Lidocaine - Mpf 2% 5 Ml Vial Administered 10/08/24 18:08 Dose 5 ml .ROUTE .STK-MED ONE Morphine Sulfate 4 mg 10/08/24 17:15 10/08/24 17:24 Morphine Sulfate 4 Mg/Ml Injection IV 10/08/24 17:16 Not Given STAT ONE Morphine Sulfate Confirm 10/08/24 17:22 Morphine Sulfate 4 Mg/Ml Injection Administered 10/08/24 17:23 Dose 4 mg .ROUTE .STK-MED ONE Ondansetron HCl 4 mg 10/08/24 17:15 10/08/24 17:25 Ondansetron Hcl 4 Mg/2 Ml Vial IV 10/08/24 17:16 Not Given STAT ONE Ondansetron HCl Confirm 10/08/24 17:21 Ondansetron Hcl 4 Mg/2 Ml Vial Administered 10/08/24 17:22 Dose 4 mg .ROUTE .STK-MED ONE Ondansetron HCl Confirm 10/08/24 20:22 Ondansetron Hcl 4 Mg/2 Ml Vial Administered 10/08/24 20:23 Dose 4 mg .ROUTE .STK-MED ONE Pantoprazole Sodium 40 mg 10/08/24 23:15 10/08/24 23:19 Pantoprazole 40 Mg Vial IV 11/07/24 23:14 40 mg Q24H MARLY Administration Piperacillin Sod/Tazobactam Sod Confirm 10/08/24 17:49 Piperacillin/Tazobactam Sodium 3.375 Gm Vial Administered 10/08/24 17:50 Dose 3.375 gm IV .STK-MED ONE Piperacillin Sod/Tazobactam Sod Confirm 10/09/24 00:13 Piperacillin/Tazobactam Sodium 3.375 Gm Vial Administered 10/09/24 00:14 Dose 3.375 gm IV .STK-MED ONE Piperacillin Sod/Tazobactam Sod Confirm 10/09/24 05:47 Piperacillin/Tazobactam Sodium 3.375 Gm Vial Administered 10/09/24 05:48 Dose 3.375 gm IV .STK-MED ONE Piperacillin Sod/Tazobactam Sod Confirm 10/09/24 17:08 Piperacillin/Tazobactam Sodium 3.375 Gm Vial Administered 10/09/24 17:09 Dose 3.375 gm IV .STK-MED ONE Propofol Confirm 10/08/24 18:06 Propofol 200 Mg/20 Ml Vial Administered 10/08/24 18:07 Dose 200 mg IV .STK-MED ONE Rocuronium [place] Confirm 10/08/24 18:05 Rocuronium [place] 50 Mg/5 Ml Vial Administered 10/08/24 18:06 Dose 50 mg IV .STK-MED ONE Succinylcholine Chloride Confirm 10/08/24 18:05 Succinylcholine Chloride 200mg/10 Ml Vial Administered 10/08/24 18:06 Dose 100 mg .ROUTE .STK-MED ONE Sugammadex Sodium Confirm 10/08/24 20:05 Sugammadex Sodium 200 Mg/2 Ml Vial Administered 10/08/24 20:06 Dose 200 mg IV .STK-MED ONE Multi-Disciplinary Progress Notes: Multi-Disciplinary Progress Notes 10/12/24 10:16 Case Management Note by Kirstin Borden S/W PATIENT AND - HE CONTINUES TO BE HOPEFUL TO RETURN HOME TO HIS PLOF WITH HIS . WILL CONTINUE TO EVAL FOR NEEDS CLOSER TO TIME OF DC . THEY ARE AGREEABLE TO THE [facility] IF NEEDED. Initialized on 10/12/24 10:16 - END OF NOTE 10/12/24 09:36 Nutrition Note by Silvana Marks F/u note: Note pt diet advanced to clear liquid today. Pily [email or web address] Initialized on 10/12/24 09:36 - END OF NOTE 10/11/24 15:47 Case Management Note by Kristel Mancilla S/W PATIENT AND - HE CONTINUES TO BE HOPEFUL TO RETURN HOME TO HIS PLF WITH HIS . HE REPORTS HE HAS [employer] COVERAGE IF NEEDED WELL. WILL CONTINUE TO MONITOR CHART AND EVAL FOR NEEDS CLOSER TO TIME OF DC Initialized on 10/11/24 15:47 - END OF NOTE Assessment/Plan (1) Intestinal perforation Current Visit: Yes Status: Acute Code(s): K63.1 - PERFORATION OF INTESTINE (NONTRAUMATIC) (2) Hypertension Current Visit: Yes Status: Acute Code(s): I10 - ESSENTIAL (PRIMARY) HYPERTENSION (3) BPH (benign prostatic hyperplasia) Current Visit: Yes Status: Acute Code(s): N40.0 - BENIGN PROSTATIC HYPERPLASIA WITHOUT LOWER URINRY TRACT SYMP (4) Hypoglycemia Current Visit: Yes Status: Acute Code(s): E16.2 - HYPOGLYCEMIA, UNSPECIFIED (5) Insomnia Current Visit: Yes Status: Acute Code(s): G47.00 - INSOMNIA, UNSPECIFIED (6) Edema of both lower legs Current Visit: Yes Status: Acute Assessment & Plan: ## Bowel perforation - Now status post partial small bowel resection. - Initial cause appears to be diverticulitis of the small bowel. - Pain is currently controlled. - NG tube to low intermittent wall suction - NPO - P.r.n. morphine - Continue Zosyn started in the ED - Start Protonix 40 mg IV daily - Normal saline at 125 mL per hour - p.r.n. Zofran - ERICK drain x2, abd binder - Awaiting surgery recs - CBC, CMP reviewed - WBC improving 9.7 - Radiology results reviewed 10/11 - Leukocytosis resolved - CBC, CMP reviewed - awaiting surgery recs 10/12 - NG removed last night per GS orders - Clear liquid diet started today per GS orders - awaiting further GS recs - ERICK drains x2 in place and abd. binder - Temp 99.2 at 0746 today - Randall PRN pain ## Hypertension - Blood pressure Controlled, - Elevated at times in the but in the setting of acute pain. - Hold home metoprolol as patient has NG tube - Can restart once tolerating p.o. 10/12 - restart home meds ## BPH - Restart home tamsulosin once tolerating p.o. 10/12 - restart home meds Code(s): N40.0 - BENIGN PROSTATIC HYPERPLASIA WITHOUT LOWER URINRY TRACT SYMP (4) Hypoglycemia Current Visit: Yes Status: Acute Assessment & Plan: - D5 LR @ 100ml/hr started last night - Hypoglycemia protocol started - Accuchecks Q6 10/12 - Stop IVF since starting clears Code(s): E16.2 - HYPOGLYCEMIA, UNSPECIFIED (5) Insomnia Current Visit: Yes Status: Acute Assessment & Plan: - Melatonin PRN Code(s): G47.00 - INSOMNIA, UNSPECIFIED (6) Edema of both lower legs Current Visit: Yes Status: Acute Assessment & Plan: - TEDS Code status: Full Prophylaxis: Lovenox Diet: NPO Dispo: per surgery recs Code(s): R60.0 - LOCALIZED EDEMA Code(s): R60.0 - LOCALIZED EDEMA
[2024-10-12] MEDS: Toprol Xl 50 MG PO SCH (12:23)
[2024-10-12] MEDS: Flomax 0.4 MG PO SCH (12:23)
--- NOTE | 2024-10-12 12:33 | PCM.NOTE ---
Date and Time: 10/12/24 1203 Objective Exam Wound Assessment: Skin/Wound Assessment Wound/Incision Assessment Start: 10/09/24 00:03 Text: Status: Active Freq: Q6H Protocol: Document 10/12/24 08:00 ELA (Rec: 10/12/24 08:32 ELA [id number]) Wound/Incision Assessment Upper Medial Abdomen Wound Assessment Shift Assessment Wound Type Incision Wound Stage Non Pressure Wound Dressing Status Dry & Intact Drainage Amount Minimal Drainage Description Serosanguineous General Appearance Well Approximated,[place] Intact,Draining Left Abdomen Drain Type JAYNA drain Drainage Description Serosanguineous Odor None/Absent Right Abdomen Drain Type JAYNA drain Drainage Description Serosanguineous Odor None/Absent Wound Photo Photo Taken No Objective Data Vital Signs: Vital Signs - 24 hr Temp Pulse Resp BP Pulse Ox 10/12/24 11:51 98.7 F 78 19 146/84 95 10/12/24 07:46 99.2 F 77 17 141/65 94 L 10/12/24 06:00 19 10/12/24 04:00 97.5 F 78 19 126/67 95 10/12/24 02:00 18 10/12/24 00:00 98.3 F 72 18 141/68 95 10/11/24 20:00 98.5 F 83 21 162/72 95 10/11/24 16:00 98.7 F 91 H 20 167/74 94 L Pain Assessment - Last Documented Pain Intensity 0 Pain Scale Used 0-10 Pain Scale Intake and Output: Intake & Output 10/10/24 10/11/24 10/12/24 10/13/24 11:59 11:59 11:59 11:59 Intake Total 1620 2764 2960 Output Total 2150 2900 1617 Balance -530 -136 1343 Weight 74 kg Lab Results: Lab Results-Last 24 Hours 10/11/24 10/11/24 10/12/24 Range/Units 16:44 22:26 05:12 WBC 6.2 (4.23-9.07) x10^3/uL RBC 3.66 L (4.63-6.08) x10^6/uL Hgb 10.9 L (13.7-17.5) g/dL Hct 33.1 L (40.1-51.0) % MCV 90.4 (79.0-92.2) fL MCH 29.8 (25.7-32.2) pg MCHC 32.9 (32.3-36.5) g/dL RDW 14.4 (11.6-14.4) % Plt Count 158 L (163-337) x10^3/uL MPV 10.2 (9.4-12.4) fL Sodium (135-145) mmol/L Potassium (3.5-5.1) mmol/L Chloride (98-107) mmol/L Carbon Dioxide (22-30) mmol/L Anion Gap (5-15) MEQ/L BUN (9-20) mg/dL Creatinine (0.66-1.25) mg/dL Estimated GFR ML/MIN Glucose (74-106) mg/dL POC Glucometer 102 154 H (74 to 106) mg/dL Calcium (8.4-10.2) mg/dL Total Bilirubin (0.2-1.3) mg/dL AST (17-59) U/L ALT (0-50) U/L Alkaline Phosphatase (38-126) U/L Serum Total Protein (6.3-8.2) g/dL Albumin (3.5-5.0) g/dL 10/12/24 10/12/24 10/12/24 Range/Units 05:12 07:29 10:37 WBC (4.23-9.07) x10^3/uL RBC (4.63-6.08) x10^6/uL Hgb (13.7-17.5) g/dL Hct (40.1-51.0) % MCV (79.0-92.2) fL MCH (25.7-32.2) pg MCHC (32.3-36.5) g/dL RDW (11.6-14.4) % Plt Count (163-337) x10^3/uL MPV (9.4-12.4) fL Sodium 139 (135-145) mmol/L Potassium 3.6 (3.5-5.1) mmol/L Chloride 110 H (98-107) mmol/L Carbon Dioxide 25 (22-30) mmol/L Anion Gap 8.2 (5-15) MEQ/L BUN 11 (9-20) mg/dL Creatinine 0.76 (0.66-1.25) mg/dL Estimated GFR 86.5 ML/MIN Glucose 171 H (74-106) mg/dL POC Glucometer 156 H 158 H (74 to 106) mg/dL Calcium 7.9 L (8.4-10.2) mg/dL Total Bilirubin 0.70 (0.2-1.3) mg/dL AST 29 (17-59) U/L ALT 15 (0-50) U/L Alkaline Phosphatase 52 (38-126) U/L Serum Total Protein 4.8 L (6.3-8.2) g/dL Albumin 2.5 L (3.5-5.0) g/dL Medications: Medications Generic Name Dose Route Start Last Admin Trade Name Freq PRN Reason Stop Dose Admin Acetaminophen 650 mg 10/12/24 11:28 Acetaminophen 325 Mg Tablet PO 11/11/24 11:27 Q6H PRN PRN PAIN AND/OR FEVER Hydrocodone Bitart/Acetaminophen 1 tab 10/08/24 23:05 Hydrocodone/Apap 5/325 1 Tab Tablet PO 10/13/24 23:04 Q4H PRN PRN PAIN Dextrose 25 ml 10/11/24 08:08 Dextrose 50%-Water 50 Ml Abboject IV 11/10/24 08:07 PRN PRN HYPOGLYCEMIA Enoxaparin Sodium 40 mg 10/09/24 10:00 10/12/24 11:01 Enoxaparin Sodium 40 Mg/0.4 Ml Syringe SQ 11/08/24 09:59 40 mg DAILY MARLY Administration Glucose 15 gm 10/11/24 08:08 Dextrose 15 Gm Gel PO 11/10/24 08:07 PRN PRN HYPOGLYCEMIA Piperacillin Sod/Tazobactam 100 mls @ 200 mls/hr 10/09/24 00:00 10/12/24 05:12 Sod 3.375 gm/ Sodium Chloride IV 10/14/24 00:00 200 mls/hr Q6HT MARLY Administration Melatonin 3 mg 10/11/24 13:23 Melatonin 3 Mg Tablet PO 11/10/24 13:22 HS PRN PRN INSOMNIA Metoprolol Succinate 50 mg 10/12/24 12:00 Metoprolol Succinate 50 Mg Tablet.Sa PO 11/11/24 11:59 DAILY MARLY Morphine Sulfate 2 mg 10/08/24 23:03 10/10/24 01:55 Morphine Sulfate 2 Mg/Ml Inj IV 10/13/24 23:02 2 mg Q1H/PRN PRN Administration SEVERE PAIN Morphine Sulfate 4 mg 10/08/24 23:03 10/12/24 05:21 Morphine Sulfate 4 Mg/Ml Injection IV 10/13/24 23:02 4 mg Q2H PRN PRN Administration SEVERE PAIN Naloxone HCl 0.4 mg 10/09/24 08:30 Naloxone Hcl 0.4 Mg/Ml Ml IV 11/08/24 08:29 PRN PRN RESPIRATORY DEPRESSION Ondansetron HCl 4 mg 10/08/24 23:06 10/10/24 01:56 Ondansetron Hcl 4 Mg/2 Ml Vial IV 11/07/24 23:05 4 mg Q6H PRN PRN Administration NAUSEA/VOMITING Pantoprazole Sodium 40 mg 10/09/24 22:00 10/11/24 21:49 Pantoprazole 40 Mg Vial IV 11/08/24 21:59 40 mg Q24H22 MARLY Administration Tamsulosin HCl 0.4 mg 10/12/24 12:00 Tamsulosin Hcl 0.4 Mg Cap PO 11/11/24 11:59 DAILY MARLY Discontinued Medications Generic Name Dose Route Start Last Admin Trade Name Freq PRN Reason Stop Dose Admin Atropine Sulfate Confirm 10/08/24 20:11 Atropine Sulfate 1 Mg/1 Ml Vial Administered 10/08/24 20:12 Dose 1 mg .ROUTE .STK-MED ONE Bupivacaine HCl Confirm 10/08/24 17:48 Bupivacaine Hcl 2.5 Mg/Ml 10 Ml Administered 10/08/24 17:49 Dose 20 ml .ROUTE .STK-MED ONE Bupivacaine HCl Confirm 10/08/24 20:16 Bupivacaine Hcl/Pf 150 Mg/30 Ml Vial Administered 10/08/24 20:17 Dose 150 mg .ROUTE .STK-MED ONE Bupivacaine Liposome Confirm 10/08/24 20:16 Bupivacaine Liposome/Pf 133 Mg/10 Ml Administered 10/08/24 20:17 Dose 266 mg IJ .STK-MED ONE Dexmedetomidine/Sodium Chloride Confirm 10/08/24 21:04 Dexmedetomidine In 0.9 % Nacl 80 Mcg/20 Ml Vial Administered 10/08/24 21:05 Dose 80 mcg IV .STK-MED ONE Ephedrine Sulfate Confirm 10/08/24 18:48 Ephedrine Sulfate 50 Mg/Ml Administered 10/08/24 18:49 Dose 50 mg .ROUTE .STK-MED ONE Etomidate Confirm 10/08/24 18:07 Etomidate 20 Mg/10 Ml Amp Administered 10/08/24 18:08 Dose 20 mg IV .STK-MED ONE Fentanyl Citrate Confirm 10/08/24 18:07 Fentanyl Citrate 100 Mcg/2 Ml* Vial Administered 10/08/24 18:08 Dose 100 mcg .ROUTE .STK-MED ONE Fentanyl Citrate Confirm 10/08/24 19:11 Fentanyl Citrate 100 Mcg/2 Ml* Vial Administered 10/08/24 19:12 Dose 100 mcg .ROUTE .STK-MED ONE Sodium Chloride 1,000 mls @ 999 mls/hr 10/08/24 16:37 10/08/24 17:50 Sodium Chloride 0.9% 1000 Ml IV 10/08/24 17:37 Infused .Q1H1M STA Infusion Sodium Chloride Confirm 10/08/24 16:41 Sodium Chloride 0.9% 1000 Ml Administered 10/08/24 16:42 Dose 1,000 mls @ ud .ROUTE .STK-MED ONE Piperacillin Sod/Tazobactam 100 mls @ 200 mls/hr 10/08/24 17:46 10/08/24 17:53 Sod 3.375 gm/ Sodium Chloride IV 10/08/24 18:15 200 ml/hr STAT ONE 200 mls/hr Administration Lactated Ringer's Confirm 10/08/24 17:48 Lactated Ringers Administered 10/08/24 17:49 Dose 1,000 mls @ ud IV .STK-MED ONE Sodium Chloride Confirm 10/08/24 17:50 Sodium Chloride 100ml Mini-Bag Plus Administered 10/08/24 17:51 Dose 100 mls @ ud IV .STK-MED ONE Norepinephrine/Dextrose Confirm 10/08/24 17:56 Norepinephrine 8 Mg/250 Ml-D5w Administered 10/08/24 17:57 Dose 8 mg in 250 mls @ ud IV .STK-MED ONE Lactated Ringer's Confirm 10/08/24 19:14 Lactated Ringers Administered 10/08/24 19:15 Dose 1,000 mls @ ud IV .STK-MED ONE Sodium Chloride 1,000 mls @ 125 mls/hr 10/08/24 22:45 10/10/24 11:45 Sodium Chloride 0.9% 1000 Ml IV 11/07/24 22:44 125 mls/hr .Q8H MARLY Administration Sodium Chloride Confirm 10/09/24 00:14 Sodium Chloride 100ml Mini-Bag Plus Administered 10/09/24 00:15 Dose 100 mls @ ud IV .STK-MED ONE Sodium Chloride Confirm 10/09/24 05:48 Sodium Chloride 100ml Mini-Bag Plus Administered 10/09/24 05:49 Dose 100 mls @ ud IV .STK-MED ONE Sodium Chloride Confirm 10/08/24 22:37 Sodium Chloride 0.9% 1000 Ml Administered 10/08/24 22:38 Dose 1,000 mls @ ud .ROUTE .STK-MED ONE Dextrose/Lactated Ringer's 1,000 mls @ 100 mls/hr 10/11/24 06:30 10/12/24 03:22 Dextrose 5%-Lr Iv Solution 1000 Ml IV 11/10/24 06:29 100 mls/hr .Q10H MARLY Administration Lidocaine HCl Confirm 10/08/24 18:07 Lidocaine - Mpf 2% 5 Ml Vial Administered 10/08/24 18:08 Dose 5 ml .ROUTE .STK-MED ONE Morphine Sulfate 4 mg 10/08/24 17:15 10/08/24 17:24 Morphine Sulfate 4 Mg/Ml Injection IV 10/08/24 17:16 Not Given STAT ONE Morphine Sulfate Confirm 10/08/24 17:22 Morphine Sulfate 4 Mg/Ml Injection Administered 10/08/24 17:23 Dose 4 mg .ROUTE .STK-MED ONE Ondansetron HCl 4 mg 10/08/24 17:15 10/08/24 17:25 Ondansetron Hcl 4 Mg/2 Ml Vial IV 10/08/24 17:16 Not Given STAT ONE Ondansetron HCl Confirm 10/08/24 17:21 Ondansetron Hcl 4 Mg/2 Ml Vial Administered 10/08/24 17:22 Dose 4 mg .ROUTE .STK-MED ONE Ondansetron HCl Confirm 10/08/24 20:22 Ondansetron Hcl 4 Mg/2 Ml Vial Administered 10/08/24 20:23 Dose 4 mg .ROUTE .STK-MED ONE Pantoprazole Sodium 40 mg 10/08/24 23:15 10/08/24 23:19 Pantoprazole 40 Mg Vial IV 05/20/25 23:14 40 mg Q24H MARLY Administration Piperacillin Sod/Tazobactam Sod Confirm 10/08/24 17:49 Piperacillin/Tazobactam Sodium 3.375 Gm Vial Administered 10/08/24 17:50 Dose 3.375 gm IV .STK-MED ONE Piperacillin Sod/Tazobactam Sod Confirm 10/09/24 00:13 Piperacillin/Tazobactam Sodium 3.375 Gm Vial Administered 10/09/24 00:14 Dose 3.375 gm IV .STK-MED ONE Piperacillin Sod/Tazobactam Sod Confirm 10/09/24 05:47 Piperacillin/Tazobactam Sodium 3.375 Gm Vial Administered 10/09/24 05:48 Dose 3.375 gm IV .STK-MED ONE Piperacillin Sod/Tazobactam Sod Confirm 10/09/24 17:08 Piperacillin/Tazobactam Sodium 3.375 Gm Vial Administered 10/09/24 17:09 Dose 3.375 gm IV .STK-MED ONE Propofol Confirm 10/08/24 18:06 Propofol 200 Mg/20 Ml Vial Administered 10/08/24 18:07 Dose 200 mg IV .STK-MED ONE Rocuronium Ringling Confirm 10/08/24 18:05 Rocuronium Ringling 50 Mg/5 Ml Vial Administered 10/08/24 18:06 Dose 50 mg IV .STK-MED ONE Succinylcholine Chloride Confirm 10/08/24 18:05 Succinylcholine Chloride 200mg/10 Ml Vial Administered 10/08/24 18:06 Dose 100 mg .ROUTE .STK-MED ONE Sugammadex Sodium Confirm 10/08/24 20:05 Sugammadex Sodium 200 Mg/2 Ml Vial Administered 10/08/24 20:06 Dose 200 mg IV .STK-MED ONE Multi-Disciplinary Progress Notes: Multi-Disciplinary Progress Notes 10/12/24 10:16 Case Management Note by Kirstin Borden S/W PATIENT AND - HE CONTINUES TO BE HOPEFUL TO RETURN HOME TO HIS PLOF WITH HIS . WILL CONTINUE TO EVAL FOR NEEDS CLOSER TO TIME OF DC . THEY ARE AGREEABLE TO [facility] IF NEEDED. Initialized on 10/12/24 10:16 - END OF NOTE 10/12/24 09:36 Nutrition Note by Silvana Marks F/u note: Note pt diet advanced to clear liquid today. Pily, [id number] Initialized on 10/12/24 09:36 - END OF NOTE 10/11/24 15:47 Case Management Note by Kristel Mancilla S/W PATIENT AND - HE CONTINUES TO BE HOPEFUL TO RETURN HOME TO HIS PLF WITH HIS . HE REPORTS HE HAS CASH APPLICATIONS COORDINATOR CARE COVERAGE IF NEEDED WELL. WILL CONTINUE TO MONITOR CHART AND EVAL FOR NEEDS CLOSER TO TIME OF DC Initialized on 10/11/24 15:47 - END OF NOTE Assessment/Plan (1) Intestinal perforation Current Visit: Yes Status: Acute Assessment & Plan: S; no acute issues. overnight. no n/v. pain tolerable. transferring to chair. + flatus. no bm. jonathan cld this am. o nad nonlabored resps nd, soft, attp c/d/i johnathon. a/p: doing well had a little flatus. starting CLD. continue supportive care await bm. -PT if not already doing. Code(s): K63.1 - PERFORATION OF INTESTINE (NONTRAUMATIC)
[2024-10-13 05:52] LABS: Hematocrit 34.1 % (40.1-51.0); Hemoglobin 11.2 g/dL (13.7-17.5); Mean Corpuscular Hemoglobin 29.6 pg (25.7-32.2); Mean Corpuscular Hgb Concent. 32.8 g/dL (32.3-36.5); Mean Platelet Volume 10.6 fL (9.4-12.4); Platelet Count 158 x10^3/uL (163-337); Red Blood Count 3.79 x10^6/uL (4.63-6.08); Red Cell Distribution Width 14.1 % (11.6-14.4); White Blood Count 6.1 x10^3/uL (4.23-9.07)
[2024-10-13 06:07] LABS: ALBUMIN 2.7 g/dL (3.5-5.0); ANION GAP 12.2 MEQ/L (5-15); BILIRUBIN,TOTAL 0.9 mg/dL (0.2-1.3); Calcium 8.2 mg/dL (8.4-10.2); Creatinine 1 0.87 mg/dL (0.66-1.25); Potassium 3.6 mmol/L (3.5-5.1); Total Protein 5.1 g/dL (6.3-8.2)
--- NOTE | 2024-10-13 10:35 | PCM.NOTE ---
Date and Time: 10/13/24 1027 Subjective Assessment: 10/09/24 Mr. Gallego is a 88-year-old man with a history of hypertension and BPH. He was admitted on 10/08/24 with bowel perforation. Per ED report, patient presented with abdominal pain for the last week, worsening for the last 2 days prior to admission. With severe, sharp, but diffuse. On CT, he was found to have a bowel perforation with concern for ischemic bowel. He was taken to the OR directly from the ED. Per report, he was found to have "small bowel diverticulitis" with a perforation and underwent a small bowel resection. He denies any pain currently. He has 2 erick drains with a significant amount of sanguineous drainage. He also has an NG in place to LIS. He is POD #2 from surgery today. Narcotic pain meds are controlling his pain well. He denies any further concerns at this time. 10/10/24 Pt resting in bed. Per nursing staff he did not sleep last night. He states he has generalized abd. tenderness today. Abd binder in place. NG to LIS and [address] WBC improving 9.7. KUB from yesterday reviewed. Awaiting surgery recs today. He denies any further concerns at this time. Continue IV antibiotics per surgery plan of care. 10/11/24 Pt up and sitting in the chair this AM. He states he is feeling much better. Waiting surgery recs. NG and ERICK drains in place. TEDS ordered for BLLE edema. IVF changed to D5 LR at 100 last night as glucose decreased. Hypoglycemia protocol added as well. Pt continues to be NPO. He denies any further concerns at this time. 10/12/24 Pt resting in bed. He states he feels much better today. NG removed last night and clear liquid diet started this AM. ERICK drains x2 in place. Aviating surgery recs. Labs overall improved. He denies any further concerns at this time. 10/13/24 The patient is sitting up in a chair and reports feeling better. He states that he has had several bowel movements and believes the chicken broth he is consuming may be contributing. He remains on a clear liquid diet per general surgerys orders. Laboratory values have shown overall improvement. Two ERICK drains remain in place, along with an abdominal binder. He is actively working with physical therapy and is considering transfer to a swing bed facility for continued recovery. At this time, he denies any additional concerns. - Review of Systems Constitutional: No Fever, No Chills Eyes: No Symptoms Ears, Nose, & Throat: No Symptoms Respiratory: No Cough, No Short Of Breath Cardiac: No Chest Pain, No Edema, No Syncope Abdominal/Gastrointestinal: No Abdominal Pain, No Nausea, No Vomiting, No Diarr hea Genitourinary Symptoms: No Dysuria Musculoskeletal: No Back Pain, No Neck Pain Skin: No Rash Neurological: No Dizziness, No Focal Weakness, No Sensory Changes Psychological: No Symptoms Endocrine: No Symptoms Hematologic/Lymphatic: No Symptoms Immunological/Allergic: No Symptoms Objective Exam General Appearance: no apparent distress, alert Neurologic Exam: alert, oriented x 3, cooperative, normal mood/affect, nml cerebellar function, sensation nml, No motor deficits Skin Exam: normal color, warm, dry Wound Assessment: Skin/Wound Assessment Wound/Incision Assessment Start: 10/09/24 00:03 Text: Status: Active Freq: Q6H Protocol: Document 10/13/24 08:00 [facility] (Rec: 10/13/24 08:59 [facility] [id number]) Wound/Incision Assessment Right Buttock Wound Assessment Shift Assessment 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 PT REPORTED HE HAD TWO OPEN AREAS ON HIS BUTTOCKS AND ONE IS HEALED. HE STATED HIS HAS BEEN TREATING THIS AREA. this remains true Upper Medial Abdomen Wound Assessment Shift Assessment Wound Type Incision Wound Stage Non Pressure Wound Dressing Status Dry & Intact Drainage Amount Minimal Drainage Description Serosanguineous General Appearance Well Approximated,[place] Intact,Draining Left Abdomen Drain Type ERICK drain Drainage Description Serosanguineous Odor None/Absent Right Abdomen Drain Type ERICK drain Drainage Description Serosanguineous Odor None/Absent Wound Photo Photo Taken No Eye Exam: PERRL, EOMI, eyes nml inspection Ears, Nose, Throat Exam: normal ENT inspection, pharynx normal, moist mucous membranes Neck Exam: normal inspection, non-tender, supple, full range of motion Respiratory Exam: normal breath sounds, lungs clear, No respiratory distress Cardiovascular Exam: regular rate/rhythm, normal heart sounds Gastrointestinal/Abdomen Exam: soft, No tenderness, No mass Extremity Exam: normal inspection, normal range of motion Back Exam: normal inspection, normal range of motion, No CVA tenderness, No vertebral tenderness Male Genitalia Exam: deferred Rectal Exam: deferred Objective Data Vital Signs: Vital Signs - 24 hr Temp Pulse Resp BP Pulse Ox 10/13/24 07:56 98.4 F 78 20 128/58 96 10/13/24 06:00 22 10/13/24 04:00 97.4 F 84 22 157/76 94 L 10/13/24 02:00 18 10/12/24 23:31 97.0 F 71 21 132/67 95 10/12/24 22:00 18 10/12/24 20:00 97.3 F 67 18 143/70 95 10/12/24 16:00 98.3 F 87 19 184/83 94 L 10/12/24 11:51 98.7 F 78 19 146/84 95 Pain Assessment - Last Documented Pain Intensity 0 Pain Scale Used 0-10 Pain Scale Intake and Output: Intake & Output 10/10/24 10/11/24 10/12/24 10/13/24 11:59 11:59 11:59 11:59 Intake Total 1620 2764 2960 220 Output Total 2150 2900 1617 660 Balance -530 -136 1343 -440 Weight 74 kg Lab Results: Lab Results-Last 24 Hours 10/08/24 10/12/24 10/12/24 Range/Units 19:36 10:37 17:42 WBC (4.23-9.07) x10^3/uL RBC (4.63-6.08) x10^6/uL Hgb (13.7-17.5) g/dL Hct (40.1-51.0) % MCV (79.0-92.2) fL MCH (25.7-32.2) pg MCHC (32.3-36.5) g/dL RDW (11.6-14.4) % Plt Count (163-337) x10^3/uL MPV (9.4-12.4) fL Sodium (135-145) mmol/L Potassium (3.5-5.1) mmol/L Chloride (98-107) mmol/L Carbon Dioxide (22-30) mmol/L Anion Gap (5-15) MEQ/L BUN (9-20) mg/dL Creatinine (0.66-1.25) mg/dL Estimated GFR ML/MIN Glucose (74-106) mg/dL POC Glucometer 158 H 125 H (74 to 106) mg/dL Calcium (8.4-10.2) mg/dL Total Bilirubin (0.2-1.3) mg/dL AST (17-59) U/L ALT (0-50) U/L Alkaline Phosphatase (38-126) U/L Serum Total Protein (6.3-8.2) g/dL Albumin (3.5-5.0) g/dL Surg PTH Specimen SEE COMMENTS 10/12/24 10/13/24 10/13/24 Range/Units 21:57 05:15 05:15 WBC 6.1 (4.23-9.07) x10^3/uL RBC 3.79 L (4.63-6.08) x10^6/uL Hgb 11.2 L (13.7-17.5) g/dL Hct 34.1 L (40.1-51.0) % MCV 90.0 (79.0-92.2) fL MCH 29.6 (25.7-32.2) pg MCHC 32.8 (32.3-36.5) g/dL RDW 14.1 (11.6-14.4) % Plt Count 158 L (163-337) x10^3/uL MPV 10.6 (9.4-12.4) fL Sodium 139 (135-145) mmol/L Potassium 3.6 (3.5-5.1) mmol/L Chloride 110 H (98-107) mmol/L Carbon Dioxide 21 L (22-30) mmol/L Anion Gap 12.2 (5-15) MEQ/L BUN 11 (9-20) mg/dL Creatinine 0.87 (0.66-1.25) mg/dL Estimated GFR 83.0 ML/MIN Glucose 103 (74-106) mg/dL POC Glucometer 131 H (74 to 106) mg/dL Calcium 8.2 L (8.4-10.2) mg/dL Total Bilirubin 0.90 (0.2-1.3) mg/dL AST 32 (17-59) U/L ALT 16 (0-50) U/L Alkaline Phosphatase 58 (38-126) U/L Serum Total Protein 5.1 L (6.3-8.2) g/dL Albumin 2.7 L (3.5-5.0) g/dL Surg PTH Specimen Medications: Medications Generic Name Dose Route Start Last Admin Trade Name Freq PRN Reason Stop Dose Admin Acetaminophen 650 mg 10/12/24 11:28 Acetaminophen 325 Mg Tablet PO 11/11/24 11:27 Q6H PRN PRN PAIN AND/OR FEVER Hydrocodone Bitart/Acetaminophen 1 tab 10/08/24 23:05 Hydrocodone/Apap 5/325 1 Tab Tablet PO 10/13/24 23:04 Q4H PRN PRN PAIN Dextrose 25 ml 10/11/24 08:08 Dextrose 50%-Water 50 Ml Abboject IV 11/10/24 08:07 PRN PRN HYPOGLYCEMIA Enoxaparin Sodium 40 mg 10/09/24 10:00 10/13/24 09:50 Enoxaparin Sodium 40 Mg/0.4 Ml Syringe SQ 11/08/24 09:59 40 mg DAILY MARLY Administration Glucose 15 gm 10/11/24 08:08 Dextrose 15 Gm Gel PO 11/10/24 08:07 PRN PRN HYPOGLYCEMIA Heparin Sodium (Beef Lung) 500 units 10/13/24 09:02 Heparin Lock Flush Pf 500 Units/5 Ml Syringe PICC 11/12/24 09:01 PRN PRN IV PORT FLUSH Piperacillin Sod/Tazobactam 100 mls @ 200 mls/hr 10/09/24 00:00 10/13/24 05:20 Sod 3.375 gm/ Sodium Chloride IV 10/14/24 00:00 200 mls/hr Q6HT MARLY Administration Melatonin 3 mg 10/11/24 13:23 Melatonin 3 Mg Tablet PO 11/10/24 13:22 HS PRN PRN INSOMNIA Metoprolol Succinate 50 mg 10/12/24 12:00 10/13/24 09:50 Metoprolol Succinate 50 Mg Tablet.Sa PO 11/11/24 11:59 50 mg DAILY MARLY Administration Morphine Sulfate 2 mg 10/08/24 23:03 10/10/24 01:55 Morphine Sulfate 2 Mg/Ml Inj IV 10/13/24 23:02 2 mg Q1H/PRN PRN Administration SEVERE PAIN Morphine Sulfate 4 mg 10/08/24 23:03 10/12/24 05:21 Morphine Sulfate 4 Mg/Ml Injection IV 10/13/24 23:02 4 mg Q2H PRN PRN Administration SEVERE PAIN Naloxone HCl 0.4 mg 10/09/24 08:30 Naloxone Hcl 0.4 Mg/Ml Ml IV 11/08/24 08:29 PRN PRN RESPIRATORY DEPRESSION Ondansetron HCl 4 mg 10/08/24 23:06 10/10/24 01:56 Ondansetron Hcl 4 Mg/2 Ml Vial IV 11/07/24 23:05 4 mg Q6H PRN PRN Administration NAUSEA/VOMITING Pantoprazole Sodium 40 mg 10/09/24 22:00 10/12/24 21:27 Pantoprazole 40 Mg Vial IV 11/08/24 21:59 40 mg Q24H22 MARLY Administration Tamsulosin HCl 0.4 mg 10/12/24 12:00 10/13/24 09:50 Tamsulosin Hcl 0.4 Mg Cap PO 11/11/24 11:59 0.4 mg DAILY MARLY Administration Discontinued Medications Generic Name Dose Route Start Last Admin Trade Name Freq PRN Reason Stop Dose Admin Atropine Sulfate Confirm 10/08/24 20:11 Atropine Sulfate 1 Mg/1 Ml Vial Administered 10/08/24 20:12 Dose 1 mg .ROUTE .STK-MED ONE Bupivacaine HCl Confirm 10/08/24 17:48 Bupivacaine Hcl 2.5 Mg/Ml 10 Ml Administered 10/08/24 17:49 Dose 20 ml .ROUTE .STK-MED ONE Bupivacaine HCl Confirm 10/08/24 20:16 Bupivacaine Hcl/Pf 150 Mg/30 Ml Vial Administered 10/08/24 20:17 Dose 150 mg .ROUTE .STK-MED ONE Bupivacaine Liposome Confirm 10/08/24 20:16 Bupivacaine Liposome/Pf 133 Mg/10 Ml Administered 10/08/24 20:17 Dose 266 mg IJ .STK-MED ONE Dexmedetomidine/Sodium Chloride Confirm 10/08/24 21:04 Dexmedetomidine In 0.9 % Nacl 80 Mcg/20 Ml Vial Administered 10/08/24 21:05 Dose 80 mcg IV .STK-MED ONE Ephedrine Sulfate Confirm 10/08/24 18:48 Ephedrine Sulfate 50 Mg/Ml Administered 10/08/24 18:49 Dose 50 mg .ROUTE .STK-MED ONE Etomidate Confirm 10/08/24 18:07 Etomidate 20 Mg/10 Ml Amp Administered 10/08/24 18:08 Dose 20 mg IV .STK-MED ONE Fentanyl Citrate Confirm 10/08/24 18:07 Fentanyl Citrate 100 Mcg/2 Ml* Vial Administered 10/08/24 18:08 Dose 100 mcg .ROUTE .STK-MED ONE Fentanyl Citrate Confirm 10/08/24 19:11 Fentanyl Citrate 100 Mcg/2 Ml* Vial Administered 10/08/24 19:12 Dose 100 mcg .ROUTE .STK-MED ONE Sodium Chloride 1,000 mls @ 999 mls/hr 10/08/24 16:37 10/08/24 17:50 Sodium Chloride 0.9% 1000 Ml IV 10/08/24 17:37 Infused .Q1H1M STA Infusion Sodium Chloride Confirm 10/08/24 16:41 Sodium Chloride 0.9% 1000 Ml Administered 10/08/24 16:42 Dose 1,000 mls @ ud .ROUTE .STK-MED ONE Piperacillin Sod/Tazobactam 100 mls @ 200 mls/hr 10/08/24 17:46 10/08/24 17:53 Sod 3.375 gm/ Sodium Chloride IV 10/08/24 18:15 200 ml/hr STAT ONE 200 mls/hr Administration Lactated Ringer's Confirm 10/08/24 17:48 Lactated Ringers Administered 10/08/24 17:49 Dose 1,000 mls @ ud IV .STK-MED ONE Sodium Chloride Confirm 10/08/24 17:50 Sodium Chloride 100ml Mini-Bag Plus Administered 10/08/24 17:51 Dose 100 mls @ ud IV .STK-MED ONE Norepinephrine/Dextrose Confirm 10/08/24 17:56 Norepinephrine 8 Mg/250 Ml-D5w Administered 10/08/24 17:57 Dose 8 mg in 250 mls @ ud IV .STK-MED ONE Lactated Ringer's Confirm 10/08/24 19:14 Lactated Ringers Administered 10/08/24 19:15 Dose 1,000 mls @ ud IV .STK-MED ONE Sodium Chloride 1,000 mls @ 125 mls/hr 10/08/24 22:45 10/10/24 11:45 Sodium Chloride 0.9% 1000 Ml IV 11/07/24 22:44 125 mls/hr .Q8H MARLY Administration Sodium Chloride Confirm 10/09/24 00:14 Sodium Chloride 100ml Mini-Bag Plus Administered 10/09/24 00:15 Dose 100 mls @ ud IV .STK-MED ONE Sodium Chloride Confirm 10/09/24 05:48 Sodium Chloride 100ml Mini-Bag Plus Administered 10/09/24 05:49 Dose 100 mls @ ud IV .STK-MED ONE Sodium Chloride Confirm 10/08/24 22:37 Sodium Chloride 0.9% 1000 Ml Administered 10/08/24 22:38 Dose 1,000 mls @ ud .ROUTE .STK-MED ONE Dextrose/Lactated Ringer's 1,000 mls @ 100 mls/hr 10/11/24 06:30 10/12/24 03:22 Dextrose 5%-Lr Iv Solution 1000 Ml IV 11/10/24 06:29 100 mls/hr .Q10H MARLY Administration Lidocaine HCl Confirm 10/08/24 18:07 Lidocaine - Mpf 2% 5 Ml Vial Administered 10/08/24 18:08 Dose 5 ml .ROUTE .STK-MED ONE Morphine Sulfate 4 mg 10/08/24 17:15 10/08/24 17:24 Morphine Sulfate 4 Mg/Ml Injection IV 10/08/24 17:16 Not Given STAT ONE Morphine Sulfate Confirm 10/08/24 17:22 Morphine Sulfate 4 Mg/Ml Injection Administered 10/08/24 17:23 Dose 4 mg .ROUTE .STK-MED ONE Ondansetron HCl 4 mg 10/08/24 17:15 10/08/24 17:25 Ondansetron Hcl 4 Mg/2 Ml Vial IV 10/08/24 17:16 Not Given STAT ONE Ondansetron HCl Confirm 10/08/24 17:21 Ondansetron Hcl 4 Mg/2 Ml Vial Administered 10/08/24 17:22 Dose 4 mg .ROUTE .STK-MED ONE Ondansetron HCl Confirm 10/08/24 20:22 Ondansetron Hcl 4 Mg/2 Ml Vial Administered 10/08/24 20:23 Dose 4 mg .ROUTE .STK-MED ONE Pantoprazole Sodium 40 mg 10/08/24 23:15 10/08/24 23:19 Pantoprazole 40 Mg Vial IV 11/07/24 23:14 40 mg Q24H MARLY Administration Piperacillin Sod/Tazobactam Sod Confirm 10/08/24 17:49 Piperacillin/Tazobactam Sodium 3.375 Gm Vial Administered 10/08/24 17:50 Dose 3.375 gm IV .STK-MED ONE Piperacillin Sod/Tazobactam Sod Confirm 10/09/24 00:13 Piperacillin/Tazobactam Sodium 3.375 Gm Vial Administered 10/09/24 00:14 Dose 3.375 gm IV .STK-MED ONE Piperacillin Sod/Tazobactam Sod Confirm 10/09/24 05:47 Piperacillin/Tazobactam Sodium 3.375 Gm Vial Administered 10/09/24 05:48 Dose 3.375 gm IV .STK-MED ONE Piperacillin Sod/Tazobactam Sod Confirm 10/09/24 17:08 Piperacillin/Tazobactam Sodium 3.375 Gm Vial Administered 10/09/24 17:09 Dose 3.375 gm IV .STK-MED ONE Propofol Confirm 10/08/24 18:06 Propofol 200 Mg/20 Ml Vial Administered 10/08/24 18:07 Dose 200 mg IV .STK-MED ONE Rocuronium [place] Confirm 10/08/24 18:05 Rocuronium [place] 50 Mg/5 Ml Vial Administered 10/08/24 18:06 Dose 50 mg IV .STK-MED ONE Succinylcholine Chloride Confirm 10/08/24 18:05 Succinylcholine Chloride 200mg/10 Ml Vial Administered 10/08/24 18:06 Dose 100 mg .ROUTE .STK-MED ONE Sugammadex Sodium Confirm 10/08/24 20:05 Sugammadex Sodium 200 Mg/2 Ml Vial Administered 10/08/24 20:06 Dose 200 mg IV .STK-MED ONE Assessment/Plan (1) Intestinal perforation Current Visit: Yes Status: Acute Code(s): K63.1 - PERFORATION OF INTESTINE (NONTRAUMATIC) (2) Hypertension Current Visit: Yes Status: Acute Code(s): I10 - ESSENTIAL (PRIMARY) HYPERTENSION (3) BPH (benign prostatic hyperplasia) Current Visit: Yes Status: Acute Code(s): N40.0 - BENIGN PROSTATIC HYPERPLASIA WITHOUT LOWER URINRY TRACT SYMP (4) Hypoglycemia Current Visit: Yes Status: Acute Code(s): E16.2 - HYPOGLYCEMIA, UNSPECIFIED (5) Insomnia Current Visit: Yes Status: Acute Code(s): G47.00 - INSOMNIA, UNSPECIFIED (6) Edema of both lower legs Current Visit: Yes Status: Acute Assessment & Plan: ## Bowel perforation - Now status post partial small bowel resection. - Initial cause appears to be diverticulitis of the small bowel. - Pain is currently controlled. - NG tube to low intermittent wall suction - NPO - P.r.n. morphine - Continue Zosyn started in the ED - Start Protonix 40 mg IV daily - Normal saline at 125 mL per hour - p.r.n. Zofran - ERICK drain x2, abd binder - Awaiting surgery recs - CBC, CMP reviewed - WBC improving 9.7 - Radiology results reviewed 10/11 - Leukocytosis resolved - CBC, CMP reviewed - awaiting surgery recs 10/12 - NG removed last night per GS orders - Clear liquid diet started today per GS orders - Awaiting further GS recs - ERICK drains x2 in place and abd. tucker - Temp 99.2 at 0746 today - [place] PRN pain 10/13 - Multiple BM'S and passing gas today - NO overnight temp - COnt Clears per GS orders - PT eval and treat - Possible swing bed - ERICK drains x2 in place, abd. tucker - GS note reviewed and agree with plan of care ## Hypertension - Blood pressure Controlled, - Elevated at times in the but in the setting of acute pain. - Hold home metoprolol as patient has NG tube - Can restart once tolerating p.o. 10/12 - restart home meds ## BPH - Restarted home tamsulosin Code(s): N40.0 - BENIGN PROSTATIC HYPERPLASIA WITHOUT LOWER URINRY TRACT SYMP (4) Hypoglycemia Current Visit: Yes Status: Acute Assessment & Plan: - D5 LR @ 100ml/hr started last night - Hypoglycemia protocol started - Accuchecks Q6 10/12 - Stop IVF since starting clears Code(s): E16.2 - HYPOGLYCEMIA, UNSPECIFIED (5) Insomnia Current Visit: Yes Status: Acute Assessment & Plan: - Melatonin PRN Code(s): G47.00 - INSOMNIA, UNSPECIFIED (6) Edema of both lower legs Current Visit: Yes Status: Acute Assessment & Plan: - TEDS 10/13 - Resolved - Continue TEDS Code(s): R60.0 - LOCALIZED EDEMA
[2024-10-13] MEDS: Protonix 40MG Tablet PO SCH (21:59)
[2024-10-14 05:32] LABS: Hematocrit 32.2 % (40.1-51.0); Hemoglobin 10.5 g/dL (13.7-17.5); Mean Cell Volume 91.2 fL (79.0-92.2); Mean Corpuscular Hemoglobin 29.7 pg (25.7-32.2); Mean Corpuscular Hgb Concent. 32.6 g/dL (32.3-36.5); Mean Platelet Volume 9.8 fL (9.4-12.4); Platelet Count 143 x10^3/uL (163-337); Red Blood Count 3.53 x10^6/uL (4.63-6.08); Red Cell Distribution Width 14.4 % (11.6-14.4); White Blood Count 6.1 x10^3/uL (4.23-9.07)
[2024-10-14 05:50] LABS: ALBUMIN 2.4 g/dL (3.5-5.0); ANION GAP 11.2 MEQ/L (5-15); BILIRUBIN,TOTAL 0.6 mg/dL (0.2-1.3); Calcium 7.8 mg/dL (8.4-10.2); Creatinine 1 0.87 mg/dL (0.66-1.25); Potassium 3.6 mmol/L (3.5-5.1); Total Protein 4.7 g/dL (6.3-8.2)
--- NOTE | 2024-10-14 10:19 | PCM.NOTE ---
Date and Time: 10/14/24 1014 Subjective Assessment: 10/09/24 Mr. Gallego is a 88-year-old man with a history of hypertension and BPH. He was admitted on 10/08/24 with bowel perforation. Per ED report, patient presented with abdominal pain for the last week, worsening for the last 2 days prior to admission. With severe, sharp, but diffuse. On CT, he was found to have a bowel perforation with concern for ischemic bowel. He was taken to the OR directly from the ED. Per report, he was found to have "small bowel diverticulitis" with a perforation and underwent a small bowel resection. He denies any pain currently. He has 2 erick drains with a significant amount of sanguineous drainage. He also has an NG in place to LIS. He is POD #2 from surgery today. Narcotic pain meds are controlling his pain well. He denies any further concerns at this time. 10/10/24 Pt resting in bed. Per nursing staff he did not sleep last night. He states he has generalized abd. tenderness today. Abd binder in place. NG to LIS and [address] WBC improving 9.7. KUB from yesterday reviewed. Awaiting surgery recs today. He denies any further concerns at this time. Continue IV antibiotics per surgery plan of care. 10/11/24 Pt up and sitting in the chair this AM. He states he is feeling much better. Waiting surgery recs. NG and ERICK drains in place. TEDS ordered for BLLE edema. IVF changed to D5 LR at 100 last night as glucose decreased. Hypoglycemia protocol added as well. Pt continues to be NPO. He denies any further concerns at this time. 10/12/24 Pt resting in bed. He states he feels much better today. NG removed last night and clear liquid diet started this AM. ERICK drains x2 in place. Aviating surgery recs. Labs overall improved. He denies any further concerns at this time. 10/13/24 The patient is sitting up in a chair and reports feeling better. He states that he has had several bowel movements and believes the chicken broth he is consuming may be contributing. He remains on a clear liquid diet per general surgerys orders. Laboratory values have shown overall improvement. Two ERICK drains remain in place, along with an abdominal binder. He is actively working with physical therapy and is considering transfer to a swing bed facility for continued recovery. At this time, he denies any additional concerns. 10/14/24 Pt sitting up in the chair. He admits today he has a wound on his bottom from a heating pad at home. Wound care provided by nurse. Will order PT eval for possible wound care f/u OP. Pt transitioned to a soft diet last night and today he states he is not feeling well and having some stomach upset. He continues to have BM's and passing gas. ERICK drains remain in place and are to be pulled prior to d/c per GS. Per GS he is ok to d/c home but pt reports he does not feel well. Will keep overnight and re-eval tomorrow. Encouraged pt to ambulate with staff today. Labs reviewed with pt/ He denies any further concerns at this time. - Review of Systems Constitutional: No Fever, No Chills Eyes: No Symptoms Ears, Nose, & Throat: No Symptoms Respiratory: No Cough, No Short Of Breath Cardiac: No Chest Pain, No Edema, No Syncope Abdominal/Gastrointestinal: Abdominal Pain, No Nausea, No Vomiting, No Diarrhea Genitourinary Symptoms: No Dysuria Musculoskeletal: No Back Pain, No Neck Pain Skin: No Rash Neurological: No Dizziness, No Focal Weakness, No Sensory Changes Psychological: No Symptoms Endocrine: No Symptoms Hematologic/Lymphatic: No Symptoms Immunological/Allergic: No Symptoms Objective Exam General Appearance: no apparent distress, alert Neurologic Exam: alert, oriented x 3, cooperative, normal mood/affect, nml cerebellar function, sensation nml, No motor deficits Skin Exam: normal color, warm, dry Wound Assessment: Skin/Wound Assessment Wound/Incision Assessment Start: 10/09/24 00 :03 Text: Status: Active Freq: Q6H Protocol: Document 10/14/24 07:51 RB (Rec: 10/14/24 08:09 RB [id number]) Wound/Incision Assessment Right Buttock Wound Assessment Shift Assessment 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 Drainage Amount None Drainage Odor None/Absent General Appearance Open to air,Clean/Dry Length (cm) (cm) 1 Width (cm) (cm) 1 Depth (cm) (cm) 0.1 Wound Bed Greatest Portion Red (Granulation) Surrounding Tissue [place] Comment BARRIER CREAM APPLIED, NO C/O OF PAIN, PT REPORTS HE AND HIS HAVE BEEN DOCTORING THIS WOUND FOR A WHILE Upper Medial Abdomen Wound Assessment Shift Assessment Wound Type Incision Wound Stage Non Pressure Wound Dressing Status Dry & Intact Drainage Amount Minimal Drainage Description Serosanguineous General Appearance Well Approximated,[place] Intact,Draining Comment MILD SHADOWING MARKED, WILL CONTINUE TO MONITOR Left Abdomen Drain Type ERICK drain Drainage Description Serosanguineous Odor None/Absent Right Abdomen Drain Type ERICK drain Drainage Description Serosanguineous Odor None/Absent Wound Photo Photo Taken No Eye Exam: PERRL, EOMI, eyes nml inspection Ears, Nose, Throat Exam: normal ENT inspection, pharynx normal, moist mucous membranes Neck Exam: normal inspection, non-tender, supple, full range of motion Respiratory Exam: normal breath sounds, lungs clear, No respiratory distress Cardiovascular Exam: regular rate/rhythm, normal heart sounds Gastrointestinal/Abdomen Exam: soft, No tenderness, No mass Extremity Exam: normal inspection, normal range of motion Back Exam: normal inspection, normal range of motion, No CVA tenderness, No vertebral tenderness Male Genitalia Exam: deferred Rectal Exam: deferred Objective Data Vital Signs: Vital Signs - 24 hr Temp Pulse Resp BP Pulse Ox 10/14/24 07:33 97.5 F 69 18 155/70 94 L 10/14/24 07:00 18 10/14/24 03:54 99.1 F 63 18 114/58 97 10/14/24 00:00 98.9 F 75 16 128/63 96 10/13/24 22:52 19 10/13/24 20:00 97.6 F 70 17 131/62 95 10/13/24 19:25 18 10/13/24 16:00 97.2 F 77 20 136/61 95 10/13/24 12:00 98 F 75 20 120/56 96 Pain Assessment - Last Documented Pain Intensity 0 Pain Scale Used 0-10 Pain Scale Intake and Output: Intake & Output 10/11/24 10/12/24 10/13/24 10/14/24 11:59 11:59 11:59 11:59 Intake Total 2764 2960 220 528 Output Total 2900 1617 660 354 Balance -136 1343 -440 174 Weight 74 kg Lab Results: Lab Results-Last 24 Hours 10/13/24 10/13/24 10/14/24 Range/Units 16:48 21:05 05:29 WBC 6.1 (4.23-9.07) x10^3/uL RBC 3.53 L (4.63-6.08) x10^6/uL Hgb 10.5 L (13.7-17.5) g/dL Hct 32.2 L (40.1-51.0) % MCV 91.2 (79.0-92.2) fL MCH 29.7 (25.7-32.2) pg MCHC 32.6 (32.3-36.5) g/dL RDW 14.4 (11.6-14.4) % Plt Count 143 L (163-337) x10^3/uL MPV 9.8 (9.4-12.4) fL Sodium (135-145) mmol/L Potassium (3.5-5.1) mmol/L Chloride (98-107) mmol/L Carbon Dioxide (22-30) mmol/L Anion Gap (5-15) MEQ/L BUN (9-20) mg/dL Creatinine (0.66-1.25) mg/dL Estimated GFR ML/MIN Glucose (74-106) mg/dL POC Glucometer 95 138 H (74 to 106) mg/dL Calcium (8.4-10.2) mg/dL Total Bilirubin (0.2-1.3) mg/dL AST (17-59) U/L ALT (0-50) U/L Alkaline Phosphatase (38-126) U/L Serum Total Protein (6.3-8.2) g/dL Albumin (3.5-5.0) g/dL 10/14/24 10/14/24 Range/Units 05:29 07:09 WBC (4.23-9.07) x10^3/uL RBC (4.63-6.08) x10^6/uL Hgb (13.7-17.5) g/dL Hct (40.1-51.0) % MCV (79.0-92.2) fL MCH (25.7-32.2) pg MCHC (32.3-36.5) g/dL RDW (11.6-14.4) % Plt Count (163-337) x10^3/uL MPV (9.4-12.4) fL Sodium 139 (135-145) mmol/L Potassium 3.6 (3.5-5.1) mmol/L Chloride 110 H (98-107) mmol/L Carbon Dioxide 21 L (22-30) mmol/L Anion Gap 11.2 (5-15) MEQ/L BUN 11 (9-20) mg/dL Creatinine 0.87 (0.66-1.25) mg/dL Estimated GFR 83.0 ML/MIN Glucose 91 (74-106) mg/dL POC Glucometer 96 (74 to 106) mg/dL Calcium 7.8 L (8.4-10.2) mg/dL Total Bilirubin 0.60 (0.2-1.3) mg/dL AST 40 (17-59) U/L ALT 21 (0-50) U/L Alkaline Phosphatase 53 (38-126) U/L Serum Total Protein 4.7 L (6.3-8.2) g/dL Albumin 2.4 L (3.5-5.0) g/dL Medications: Medications Generic Name Dose Route Start Last Admin Trade Name Freq PRN Reason Stop Dose Admin Acetaminophen 650 mg 10/12/24 11:28 Acetaminophen 325 Mg Tablet PO 11/11/24 11:27 Q6H PRN PRN PAIN AND/OR FEVER Dextrose 25 ml 10/11/24 08:08 Dextrose 50%-Water 50 Ml Abboject IV 11/10/24 08:07 PRN PRN HYPOGLYCEMIA Enoxaparin Sodium 40 mg 10/09/24 10:00 10/14/24 08:52 Enoxaparin Sodium 40 Mg/0.4 Ml Syringe SQ 11/08/24 09:59 40 mg DAILY MARLY Administration Glucose 15 gm 10/11/24 08:08 Dextrose 15 Gm Gel PO 11/10/24 08:07 PRN PRN HYPOGLYCEMIA Heparin Sodium (Beef Lung) 500 units 10/13/24 09:02 10/14/24 05:56 Heparin Lock Flush Pf 500 Units/5 Ml Syringe PICC 11/12/24 09:01 500 units PRN PRN Administration IV PORT FLUSH Piperacillin Sod/Tazobactam 100 mls @ 200 mls/hr 10/09/24 00:00 10/14/24 05:54 Sod 3.375 gm/ Sodium Chloride IV 10/17/24 00:00 200 mls/hr Q6HT MARLY Administration Melatonin 3 mg 10/11/24 13:23 Melatonin 3 Mg Tablet PO 11/10/24 13:22 HS PRN PRN INSOMNIA Metoprolol Succinate 50 mg 10/12/24 12:00 10/14/24 08:51 Metoprolol Succinate 50 Mg Tablet.Sa PO 11/11/24 11:59 50 mg DAILY MARLY Administration Naloxone HCl 0.4 mg 10/09/24 08:30 Naloxone Hcl 0.4 Mg/Ml Ml IV 11/08/24 08:29 PRN PRN RESPIRATORY DEPRESSION Ondansetron HCl 4 mg 10/08/24 23:06 10/10/24 01:56 Ondansetron Hcl 4 Mg/2 Ml Vial IV 11/07/24 23:05 4 mg Q6H PRN PRN Administration NAUSEA/VOMITING Pantoprazole Sodium 40 mg 10/13/24 22:00 10/13/24 21:59 Protonix (Pantoprazole) 40 Mg Tablet PO 11/12/24 21:59 40 mg HS MARLY Administration Tamsulosin HCl 0.4 mg 10/12/24 12:00 10/14/24 08:51 Tamsulosin Hcl 0.4 Mg Cap PO 11/11/24 11:59 0.4 mg DAILY MARLY Administration Discontinued Medications Generic Name Dose Route Start Last Admin Trade Name Freq PRN Reason Stop Dose Admin Hydrocodone Bitart/Acetaminophen 1 tab 10/08/24 23:05 Hydrocodone/Apap 5/325 1 Tab Tablet PO 10/13/24 23:04 Q4H PRN PRN PAIN Atropine Sulfate Confirm 10/08/24 20:11 Atropine Sulfate 1 Mg/1 Ml Vial Administered 10/08/24 20:12 Dose 1 mg .ROUTE .STK-MED ONE Bupivacaine HCl Confirm 10/08/24 17:48 Bupivacaine Hcl 2.5 Mg/Ml 10 Ml Administered 10/08/24 17:49 Dose 20 ml .ROUTE .STK-MED ONE Bupivacaine HCl Confirm 10/08/24 20:16 Bupivacaine Hcl/Pf 150 Mg/30 Ml Vial Administered 10/08/24 20:17 Dose 150 mg .ROUTE .STK-MED ONE Bupivacaine Liposome Confirm 10/08/24 20:16 Bupivacaine Liposome/Pf 133 Mg/10 Ml Administered 10/08/24 20:17 Dose 266 mg IJ .STK-MED ONE Dexmedetomidine/Sodium Chloride Confirm 10/08/24 21:04 Dexmedetomidine In 0.9 % Nacl 80 Mcg/20 Ml Vial Administered 10/08/24 21:05 Dose 80 mcg IV .STK-MED ONE Ephedrine Sulfate Confirm 10/08/24 18:48 Ephedrine Sulfate 50 Mg/Ml Administered 10/08/24 18:49 Dose 50 mg .ROUTE .STK-MED ONE Etomidate Confirm 10/08/24 18:07 Etomidate 20 Mg/10 Ml Amp Administered 10/08/24 18:08 Dose 20 mg IV .STK-MED ONE Fentanyl Citrate Confirm 10/08/24 18:07 Fentanyl Citrate 100 Mcg/2 Ml* Vial Administered 10/08/24 18:08 Dose 100 mcg .ROUTE .STK-MED ONE Fentanyl Citrate Confirm 10/08/24 19:11 Fentanyl Citrate 100 Mcg/2 Ml* Vial Administered 10/08/24 19:12 Dose 100 mcg .ROUTE .STK-MED ONE Sodium Chloride 1,000 mls @ 999 mls/hr 10/08/24 16:37 10/08/24 17:50 Sodium Chloride 0.9% 1000 Ml IV 10/08/24 17:37 Infused .Q1H1M STA Infusion Sodium Chloride Confirm 10/08/24 16:41 Sodium Chloride 0.9% 1000 Ml Administered 10/08/24 16:42 Dose 1,000 mls @ ud .ROUTE .STK-MED ONE Piperacillin Sod/Tazobactam 100 mls @ 200 mls/hr 10/08/24 17:46 10/08/24 17:53 Sod 3.375 gm/ Sodium Chloride IV 10/08/24 18:15 200 ml/hr STAT ONE 200 mls/hr Administration Lactated Ringer's Confirm 10/08/24 17:48 Lactated Ringers Administered 10/08/24 17:49 Dose 1,000 mls @ ud IV .STK-MED ONE Sodium Chloride Confirm 10/08/24 17:50 Sodium Chloride 100ml Mini-Bag Plus Administered 10/08/24 17:51 Dose 100 mls @ ud IV .STK-MED ONE Norepinephrine/Dextrose Confirm 10/08/24 17:56 Norepinephrine 8 Mg/250 Ml-D5w Administered 10/08/24 17:57 Dose 8 mg in 250 mls @ ud IV .STK-MED ONE Lactated Ringer's Confirm 10/08/24 19:14 Lactated Ringers Administered 10/08/24 19:15 Dose 1,000 mls @ ud IV .STK-MED ONE Sodium Chloride 1,000 mls @ 125 mls/hr 10/08/24 22:45 10/13/24 21:37 Sodium Chloride 0.9% 1000 Ml IV 11/07/24 22:44 Infused .Q8H MARLY Infusion Sodium Chloride Confirm 10/09/24 00:14 Sodium Chloride 100ml Mini-Bag Plus Administered 10/09/24 00:15 Dose 100 mls @ ud IV .STK-MED ONE Sodium Chloride Confirm 10/09/24 05:48 Sodium Chloride 100ml Mini-Bag Plus Administered 10/09/24 05:49 Dose 100 mls @ ud IV .STK-MED ONE Sodium Chloride Confirm 10/08/24 22:37 Sodium Chloride 0.9% 1000 Ml Administered 10/08/24 22:38 Dose 1,000 mls @ ud .ROUTE .STK-MED ONE Dextrose/Lactated Ringer's 1,000 mls @ 100 mls/hr 10/11/24 06:30 10/12/24 03:22 Dextrose 5%-Lr Iv Solution 1000 Ml IV 11/10/24 06:29 100 mls/hr .Q10H MARLY Administration Lidocaine HCl Confirm 10/08/24 18:07 Lidocaine - Mpf 2% 5 Ml Vial Administered 10/08/24 18:08 Dose 5 ml .ROUTE .STK-MED ONE Morphine Sulfate 4 mg 10/08/24 17:15 10/08/24 17:24 Morphine Sulfate 4 Mg/Ml Injection IV 10/08/24 17:16 Not Given STAT ONE Morphine Sulfate Confirm 10/08/24 17:22 Morphine Sulfate 4 Mg/Ml Injection Administered 10/08/24 17:23 Dose 4 mg .ROUTE .STK-MED ONE Morphine Sulfate 2 mg 10/08/24 23:03 10/10/24 01:55 Morphine Sulfate 2 Mg/Ml Inj IV 10/13/24 23:02 2 mg Q1H/PRN PRN Administration SEVERE PAIN Morphine Sulfate 4 mg 10/08/24 23:03 10/12/24 05:21 Morphine Sulfate 4 Mg/Ml Injection IV 10/13/24 23:02 4 mg Q2H PRN PRN Administration SEVERE PAIN Ondansetron HCl 4 mg 10/08/24 17:15 10/08/24 17:25 Ondansetron Hcl 4 Mg/2 Ml Vial IV 10/08/24 17:16 Not Given STAT ONE Ondansetron HCl Confirm 10/08/24 17:21 Ondansetron Hcl 4 Mg/2 Ml Vial Administered 10/08/24 17:22 Dose 4 mg .ROUTE .STK-MED ONE Ondansetron HCl Confirm 10/08/24 20:22 Ondansetron Hcl 4 Mg/2 Ml Vial Administered 10/08/24 20:23 Dose 4 mg .ROUTE .STK-MED ONE Pantoprazole Sodium 40 mg 10/08/24 23:15 10/08/24 23:19 Pantoprazole 40 Mg Vial IV 11/07/24 23:14 40 mg Q24H MARLY Administration Pantoprazole Sodium 40 mg 10/09/24 22:00 10/12/24 21:27 Pantoprazole 40 Mg Vial IV 11/08/24 21:59 40 mg Q24H22 MARLY Administration Piperacillin Sod/Tazobactam Sod Confirm 10/08/24 17:49 Piperacillin/Tazobactam Sodium 3.375 Gm Vial Administered 10/08/24 17:50 Dose 3.375 gm IV .STK-MED ONE Piperacillin Sod/Tazobactam Sod Confirm 10/09/24 00:13 Piperacillin/Tazobactam Sodium 3.375 Gm Vial Administered 10/09/24 00:14 Dose 3.375 gm IV .STK-MED ONE Piperacillin Sod/Tazobactam Sod Confirm 10/09/24 05:47 Piperacillin/Tazobactam Sodium 3.375 Gm Vial Administered 10/09/24 05:48 Dose 3.375 gm IV .STK-MED ONE Piperacillin Sod/Tazobactam Sod Confirm 10/09/24 17:08 Piperacillin/Tazobactam Sodium 3.375 Gm Vial Administered 10/09/24 17:09 Dose 3.375 gm IV .STK-MED ONE Propofol Confirm 10/08/24 18:06 Propofol 200 Mg/20 Ml Vial Administered 10/08/24 18:07 Dose 200 mg IV .STK-MED ONE Rocuronium [place] Confirm 10/08/24 18:05 Rocuronium [place] 50 Mg/5 Ml Vial Administered 10/08/24 18:06 Dose 50 mg IV .STK-MED ONE Succinylcholine Chloride Confirm 10/08/24 18:05 Succinylcholine Chloride 200mg/10 Ml Vial Administered 10/08/24 18:06 Dose 100 mg .ROUTE .STK-MED ONE Sugammadex Sodium Confirm 10/08/24 20:05 Sugammadex Sodium 200 Mg/2 Ml Vial Administered 10/08/24 20:06 Dose 200 mg IV .STK-MED ONE Multi-Disciplinary Progress Notes: Multi-Disciplinary Progress Notes 10/13/24 13:09 Case Management Note by Krisetl Mancilla S/W PATIENT- WE DISCUSSED A SWINGBED STAY FOR PHYSICAL THERAPY AND INCISION/DRAIN CARE. PATIENT AGREEABLE FOR SHORT TERM REHAB STAY. HE IS ANXIOUS TO RETURN HOME WHEN MEDICALLY READY AND AMBULATING WELL. PATIENT STILL HAS DRAINS IN PLACE AT THIS TIME AND WICK IN PLACE. ANTICIPATE SWINGING PATIENT WHEN SURGERY READY FOR DC BUT WILL NEED TO SEE IF HE WOULD STILL QUALIFY AT THAT TIME D/T PATIENT DOING WELL CURRENTLY. Initialized on 10/13/24 13:09 - END OF NOTE Assessment/Plan (1) Intestinal perforation Current Visit: Yes Status: Acute Code(s): K63.1 - PERFORATION OF INTESTINE (NONTRAUMATIC) (2) Hypertension Current Visit: Yes Status: Acute Code(s): I10 - ESSENTIAL (PRIMARY) HYPERTENSION (3) BPH (benign prostatic hyperplasia) Current Visit: Yes Status: Acute Code(s): N40.0 - BENIGN PROSTATIC HYPERPLASIA WITHOUT LOWER URINRY TRACT SYMP (4) Hypoglycemia Current Visit: Yes Status: Acute Code(s): E16.2 - HYPOGLYCEMIA, UNSPECIFIED (5) Insomnia Current Visit: Yes Status: Acute Code(s): G47.00 - INSOMNIA, UNSPECIFIED (6) Edema of both lower legs Current Visit: Yes Status: Acute Assessment & Plan: ## Bowel perforation - Now status post partial small bowel resection. - Initial cause appears to be diverticulitis of the small bowel. - Pain is currently controlled. - NG tube to low intermittent wall suction - NPO - P.r.n. morphine - Continue Zosyn started in the ED - Start Protonix 40 mg IV daily - Normal saline at 125 mL per hour - p.r.n. Zofran - ERICK drain x2, abd binder - Awaiting surgery recs - CBC, CMP reviewed - WBC improving 9.7 - Radiology results reviewed 10/11 - Leukocytosis resolved - CBC, CMP reviewed - awaiting surgery recs 10/12 - NG removed last night per GS orders - Clear liquid diet started today per GS orders - Awaiting further GS recs - ERICK drains x2 in place and abdFelisa ceballos - Temp 99.2 at 0746 today - [place] PRN pain 10/13 - Multiple BM'S and passing gas today - NO overnight temp - COnt Clears per GS orders - PT eval and treat - Possible swing bed - ERICK drains x2 in place, abdFelisa ceballos - GS note reviewed and agree with plan of care 10/14 - OK to d/c per GS- remove ERICK drains prior to d/c - + Abd pain - Diet changed to soft last night - Christoph 99.1 @ 03:54 - CBC, CMP reviewed ## Hypertension - Blood pressure Controlled, - Elevated at times in the but in the setting of acute pain. - Hold home metoprolol as patient has NG tube - Can restart once tolerating p.o. 10/12 - Restart home meds ## BPH - Restarted home tamsulosin Code(s): N40.0 - BENIGN PROSTATIC HYPERPLASIA WITHOUT LOWER URINRY TRACT SYMP (4) Hypoglycemia Current Visit: Yes Status: Acute Assessment & Plan: - D5 LR @ 100ml/hr started last night - Hypoglycemia protocol started - Accuchecks Q6 10/12 - Stop IVF since starting clears Code(s): E16.2 - HYPOGLYCEMIA, UNSPECIFIED (5) Insomnia Current Visit: Yes Status: Acute Assessment & Plan: - Melatonin PRN Code(s): G47.00 - INSOMNIA, UNSPECIFIED (6) Edema of both lower legs Current Visit: Yes Status: Acute Assessment & Plan: - TEDS 10/13 - Resolved - Continue TEDS Code(s): R60.0 - LOCALIZED EDEMA (7) Wound of buttock Current Visit: Yes Status: Acute Assessment & Plan: - Pt states this is ongoing from heating pad he used at home. - Nonstick dressing and barrier cream - PT eval for possible need for OP wound care. VTE: SCD's PPI: Protonix Next of KIN: D/C plan: 1-2 days? Code status: Full Code(s): S31.809A - UNSPECIFIED OPEN WOUND OF UNSPECIFIED BUTTOCK, INIT ENCNTR
[2024-10-14] MEDS: TYLENOL 325 MG PO PRN (21:47)
[2024-10-15 00:02] VITALS: RESP 16
[2024-10-15 04:00] VITALS: O2SAT 95
[2024-10-15 06:06] LABS: Hematocrit 31.3 % (40.1-51.0); Hemoglobin 10.2 g/dL (13.7-17.5); Mean Cell Volume 91.3 fL (79.0-92.2); Mean Corpuscular Hemoglobin 29.7 pg (25.7-32.2); Mean Corpuscular Hgb Concent. 32.6 g/dL (32.3-36.5); Mean Platelet Volume 10.5 fL (9.4-12.4); Platelet Count 158 x10^3/uL (163-337); Red Blood Count 3.43 x10^6/uL (4.63-6.08); Red Cell Distribution Width 14.3 % (11.6-14.4)
[2024-10-15 06:11] LABS: ALBUMIN 2.5 g/dL (3.5-5.0); ANION GAP 9.4 MEQ/L (5-15); BILIRUBIN,TOTAL 0.5 mg/dL (0.2-1.3); Calcium 7.7 mg/dL (8.4-10.2); Creatinine 1 0.82 mg/dL (0.66-1.25); EST GLOMERULAR FILTRATION RATE 84.5 ML/MIN; Potassium 3.3 mmol/L (3.5-5.1); Total Protein 4.8 g/dL (6.3-8.2)
[2024-10-15] MEDS: Klor Con PO ONE (08:18)
--- NOTE | 2024-10-15 10:02 | PCM.DS ---
Discharge Summary Date of Admission: 10/08/24 18:00 Date of Discharge: 10/15/24 Admitting Physician: YANELIS MORIN MD Consults: Consults on Case 10/11/24 08:08 Notify Physician ROUTINE Primary Care Provider: VICK SANTOS Allergies Allergies No Known Drug Allergies Allergy (Verified 10/08/24 14:33) Hospital Summary - Hospital Course Hospital Course: Mr. Gallego is an 88-year-old male with a history of hypertension and BPH who was admitted on 10/08/24 with a bowel perforation secondary to small bowel diverticulitis, confirmed by CT and managed surgically with small bowel resection. Postoperatively, he had two JAYNA drains and an NG tube to LIS, with initially significant sanguineous drainage and some confusion, which improved over time. He experienced abdominal tenderness, hypoglycemia requiring IVF adjustments, and continued to be NPO until advancing to a clear liquid diet on 10/12 and a soft diet on 10/13. His abdominal symptoms gradually improved, though he developed a superficial wound on his buttocks from a heating pad used at home, which received wound care. He reported mild LLQ discomfort but was otherwise stable, with improving labs, regular bowel movements, and increasing mobility. He engaged with physical therapy, ambulated over 40 feet, and expressed readiness for discharge with support from home health care. JAYNA drains are to be removed prior to discharge. He denies any current concerns and will follow up with outpatient providers as scheduled. - Vitals & Intake/Output Vital Signs: Vital Signs Temperature 97.8 F 10/15/24 07:23 Pulse Rate 73 10/15/24 07:23 Respiratory Rate 16 10/15/24 07:23 Blood Pressure 106/55 10/15/24 07:23 O2 Sat by Pulse Oximetry 95 10/15/24 07:23 Intake & Output: Intake & Output 10/12/24 10/13/24 10/14/24 10/15/24 11:59 11:59 11:59 11:59 Intake Total 2960 220 528 518 Output Total 1617 660 354 105 Balance 1343 -440 174 413 Weight 74 kg - Lab Result Diagrams: 10/15/24 05:48 10/15/24 05:48 Lab Results-Last 24 Hrs: Lab Results-Last 24 Hours 10/15/24 10/15/24 Range/Units 05:48 05:48 WBC 8.0 (4.23-9.07) x10^3/uL RBC 3.43 L (4.63-6.08) x10^6/uL Hgb 10.2 L (13.7-17.5) g/dL Hct 31.3 L (40.1-51.0) % MCV 91.3 (79.0-92.2) fL MCH 29.7 (25.7-32.2) pg MCHC 32.6 (32.3-36.5) g/dL RDW 14.3 (11.6-14.4) % Plt Count 158 L (163-337) x10^3/uL MPV 10.5 (9.4-12.4) fL Sodium 141 (135-145) mmol/L Potassium 3.3 L (3.5-5.1) mmol/L Chloride 113 H (98-107) mmol/L Carbon Dioxide 22 (22-30) mmol/L Anion Gap 9.4 (5-15) MEQ/L BUN 11 (9-20) mg/dL Creatinine 0.82 (0.66-1.25) mg/dL Estimated GFR 84.5 ML/MIN Glucose 100 (74-106) mg/dL Calcium 7.7 L (8.4-10.2) mg/dL Total Bilirubin 0.50 (0.2-1.3) mg/dL AST 47 (17-59) U/L ALT 32 (0-50) U/L Alkaline Phosphatase 56 (38-126) U/L Serum Total Protein 4.8 L (6.3-8.2) g/dL Albumin 2.5 L (3.5-5.0) g/dL Micro Results-Entire Visit: Microbiology 10/08/24 18:47 Urine Culture - Final Catherized NO GROWTH - Procedures and Test Procedures and Tests throughout Hospitalization: Therapy Orders & Screens 10/09/24 07:30 OT Screen per Nursing Assess ONCE Comment: Protocol Order Physician Instructions: Greater than 3 points order OT Admission Screening Reason For Exam: Triggered on Admission Diagnosis: abdominal pain Open Wound/Cellutlitis/Pressure Ulcers: Yes Acute Fx/ORIF/Change in wt bearing status: No Severe MUSCULOSKELETAL pain: No ADL Dysfunction: No Acute CVA w/Hemiparesis/Hemiplegia: No Decreased Functional Mobility/Strength: No Sprain/Strain: No Acute Post-op Mobility Dysfunction: Yes Total Points: 8 PT Screen per Nursing Assess ONCE Comment: Protocol Order Physician Instructions: Greater than 3 points order PT Admission Screenin Reason For Exam: Triggered on Admission Diagnosis: abdominal pain Open Wound/Cellutlitis/Pressure Ulcers: Yes Acute Fx/ORIF/Change in wt bearing status: No Severe MUSCULOSKELETAL pain: No ADL Dysfunction: No Acute CVA w/Hemiparesis/Hemiplegia: No Decreased Functional Mobility/Strength: No Sprain/Strain: No Acute Post-op Mobility Dysfunction: Yes Total Points: 8 10/12/24 14:13 PT Eval & Treat ( Order) ONCE Reason for Eval:: POST OP MOVEMENT Diagnosis: INTESTINAL PERFORATION WITH PERITONITIS 10/14/24 10:15 PT Eval & Treat (MD Order) ONCE Reason for Eval:: Possible need for wound care OP from a heating pad on bottom used at home [employer]. Diagnosis: INTESTINAL PERFORATION WITH PERITONITIS Discharge Exam General Appearance: no apparent distress, alert Neurologic Exam: alert, oriented x 3, cooperative, normal mood/affect, nml cerebellar function, sensation nml, No motor deficits Eye Exam: PERRL, EOMI, eyes nml inspection Ears, Nose, Throat Exam: normal ENT inspection, pharynx normal, moist mucous membranes Neck Exam: normal inspection, non-tender, supple, full range of motion Respiratory Exam: normal breath sounds, lungs clear, No respiratory distress Cardiovascular Exam: regular rate/rhythm, normal heart sounds Gastrointestinal/Abdomen Exam: soft, tenderness (LLQ), No mass Male Genitalia Exam: deferred Rectal Exam: deferred Back Exam: normal inspection, normal range of motion, No CVA tenderness, No vertebral tenderness Extremity Exam: normal inspection, normal range of motion Skin Exam: normal color, warm, dry, other (wound buttock) Wound Assessment: Skin/Wound Assessment Wound/Incision Assessment Start: 10/09/24 00:03 Text: Status: Active Freq: Q6H Protocol: Document 10/15/24 02:28 CW (Rec: 10/15/24 02:32 CW [id number]) Wound/Incision Assessment Right Buttock Wound Assessment Shift Assessment 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 Drainage Amount None Drainage Odor None/Absent General Appearance Open to air,Clean/Dry Length (cm) (cm) 1 Width (cm) (cm) 1 Depth (cm) (cm) 0.1 Wound Bed Greatest Portion Red (Granulation) Surrounding Tissue [place] Comment CREAM APPLIED Upper Medial Abdomen Wound Assessment Shift Assessment Wound Type Incision Wound Stage Non Pressure Wound Dressing Status Drainage circled Drainage Amount Minimal Drainage Description Serosanguineous General Appearance Well Approximated,[place] Intact,Draining Comment MILD SHADOWING MARKED TO MIDLINE, NO CHNAGE FROM PREVIOUS ASSESSMENT Left Abdomen Drain Type JAYNA drain Drainage Description Serous Odor None/Absent Drainage Amount (ml) 15 Comment DRSG CHANGED Right Abdomen Drain Type JAYNA drain Drainage Description Serous Odor None/Absent Drainage Amount (ml) 0 Comment DRSG CHANGE Wound Photo Photo Taken No Final Diagnosis/Problem List - Final Discharge Diagnosis/Problem (1) Intestinal perforation Current Visit: Yes Status: Acute Code(s): K63.1 - PERFORATION OF INTESTINE (NONTRAUMATIC) (2) Hypertension Current Visit: Yes Status: Acute Code(s): I10 - ESSENTIAL (PRIMARY) HYPERTENSION (3) BPH (benign prostatic hyperplasia) Current Visit: Yes Status: Acute Code(s): N40.0 - BENIGN PROSTATIC HYPERPLASIA WITHOUT LOWER URINRY TRACT SYMP (4) Hypoglycemia Current Visit: Yes Status: Acute Code(s): E16.2 - HYPOGLYCEMIA, UNSPECIFIED (5) Insomnia Current Visit: Yes Status: Acute Code(s): G47.00 - INSOMNIA, UNSPECIFIED (6) Edema of both lower legs Current Visit: Yes Status: Acute Code(s): R60.0 - LOCALIZED EDEMA (7) Wound of buttock Current Visit: Yes Status: Acute Assessment & Plan: ## Bowel perforation - Now status post partial small bowel resection. - Initial cause appears to be diverticulitis of the small bowel. - Pain is currently controlled. - NG tube to low intermittent wall suction - NPO - P.r.n. morphine - Continue Zosyn started in the ED - Start Protonix 40 mg IV daily - Normal saline at 125 mL per hour - p.r.n. Zofran - JAYNA drain x2, abd binder - Awaiting surgery recs - CBC, CMP reviewed - WBC improving 9.7 - Radiology results reviewed 10/11 - Leukocytosis resolved - CBC, CMP reviewed - awaiting surgery recs 10/12 - NG removed last night per GS orders - Clear liquid diet started today per GS orders - Awaiting further GS recs - JAYNA drains x2 in place and abd. binder - Temp 99.2 at 0746 today - [place] PRN pain 10/13 - Multiple BM'S and passing gas today - NO overnight temp - COnt Clears per GS orders - PT eval and treat - Possible swing bed - JAYNA drains x2 in place, abd. binder - GS note reviewed and agree with plan of care 10/14 - OK to d/c per GS- remove JAYNA drains prior to d/c - + Abd pain - Diet changed to soft last night - Christoph 99.1 @ 03:54 - CBC, CMP reviewed 10/15 - CBC, CMP reviewed - No overnight temp - JAYNA drains to be removed. - Eating well - Walking well - [place] gone - Not needing narcotic pain meds - Use tylenol OTC PRN at home- do not exceed daily dosing. ## Hypertension - Blood pressure Controlled, - Elevated at times in the but in the setting of acute pain. - Hold home metoprolol as patient has NG tube - Can restart once tolerating p.o. 10/12 - Restart home meds ## BPH - Restarted home tamsulosin Code(s): N40.0 - BENIGN PROSTATIC HYPERPLASIA WITHOUT LOWER URINRY TRACT SYMP (4) Hypoglycemia Current Visit: Yes Status: Acute Assessment & Plan: - D5 LR @ 100ml/hr started last night - Hypoglycemia protocol started - Accuchecks Q6 10/12 - Stop IVF since starting clears Code(s): E16.2 - HYPOGLYCEMIA, UNSPECIFIED (5) Insomnia Current Visit: Yes Status: Acute Assessment & Plan: - Melatonin PRN - resolved Code(s): G47.00 - INSOMNIA, UNSPECIFIED (6) Edema of both lower legs Current Visit: Yes Status: Acute Assessment & Plan: - TEDS 10/13 - Resolved - Continue TEDS Code(s): R60.0 - LOCALIZED EDEMA (7) Wound of buttock Current Visit: Yes Status: Acute Assessment & Plan: - Pt states this is ongoing from heating pad he used at home. - Nonstick dressing and barrier cream - PT eval for possible need for OP wound care. Code(s): S31.809A - UNSPECIFIED OPEN WOUND OF UNSPECIFIED BUTTOCK, INIT ENCNTR - Discharge Discharge Date: 10/15/24 Disposition: HOME HEALTH SERVICE Condition: Stable Prescriptions: Continue Aspirin [Aspirin EC] 81 mg PO DAILY Metoprolol Succinate 50 mg [Toprol Xl 50 MG] 50 mg PO DAILY Tamsulosin HCl [Flomax] 0.4 mg PO DAILY Additional Instructions: *Use tylenol OTC PRN at home- do not exceed daily dosing directions on bottle. Follow up with: VICK SANTOS MD [Primary Care Provider, [facility]]
[2024-10-15 12:15] VITALS: BP 138/63; PULSE 75; TEMP 97.9
== END 2024-10-15 14:45 | disposition home health service (06) | DRG 329 ==
LOC: ED 14:26 → INTOOBSV 18:00 → ICU 18:00 → OBSVTOIN 18:00 → ED 18:04 → MED SURG 10-10 18:38
PROVIDERS: ADMIT Internal Medicine; ATTEND Internal Medicine
PROC: 0DJD0ZZ Inspection of Lower Intestinal Tract, Open Approach (ICD-10-PCS; principal; 2024-10-08)
PROC: 0DBA0ZZ Excision of Jejunum, Open Approach (ICD-10-PCS; 2024-10-08)
PROC: 0DUP07Z Supplement Rectum with Autologous Tissue Substitute, Open Approach (ICD-10-PCS; 2024-10-08)
PROC: 0JH Subcutaneous Tissue and Fascia, Insertion (ICD-10-PCS; 2024-10-08)
DX: K63.1 Perforation of intestine (nontraumatic) (principal); L89.313 Pressure ulcer of right buttock, stage 3; K57.92 Diverticulitis of intestine, part unspecified, without perforation or abscess without bleeding; I10 Essential (primary) hypertension; N40.0 Benign prostatic hyperplasia without lower urinary tract symptoms; E16.2 Hypoglycemia, unspecified; G47.00 Insomnia, unspecified; R60.0 Localized edema; E78.5 Hyperlipidemia, unspecified; K57.30 Diverticulosis of large intestine without perforation or abscess without bleeding; D72.829 Elevated white blood cell count, unspecified; Z79.899 Other long term (current) drug therapy
CPT/HCPCS: 36415; 36556; 64488; 71045; 74018; 74176; 76937; 80048; 80053; 81001; 82947; 83605; 83690; 84134; 85025; 85027; 87086; 93005; 99100; 99140; 99284; 99291; J0330; J0461; J0666; J1642; J1650; J2270; J2405; J2704; J3010; L0625; Q3014; A9270-GY